=== PATIENT | male | born 1955 | race Caucasian/White ===

== ENCOUNTER → 2018-01-17 | Outpatient (CLI) | payer OTHER, SELFPAY ==
[~2018-01-17] MED LIST: ASPI81CH PO; BENA20 PO; CARV6.25 PO; CLOP75 PO; GABA300 PO; GLIP5 PO; INSULANPEN SQ; LOVA40; Lantus100 UNIT/1 SC; METF500 PO; NEOPOLHCSU RIGHTEAR; Omeprazole20 M1
[2018-01-17 14:06] LABS: Creatinine, Urine Random 74.9 mg/dL (27.00-270.00); Protein, Urine Random 229.5 mg/dL (0.0-11.9)
== END | disposition home or self-care (01) ==
LOC: LAB SRC 09:59
PROVIDERS: Internal Medicine
DX: E11.51 Type 2 diabetes mellitus with diabetic peripheral angiopathy without gangrene (principal); E11.22 Type 2 diabetes mellitus with diabetic chronic kidney disease; N18.2 Chronic kidney disease, stage 2 (mild)
CPT/HCPCS: 82043; 82570; 84156

== ENCOUNTER 2019-08-10 12:01 | Inpatient (IN) | payer OTHER ==
[~2019-08-10] VITALS: Ht 175.3 cm; Wt 92.5 kg
[~2019-08-10 12:01] MED LIST changes: -ASPI81CH PO; -BENA20 PO; -CARV6.25 PO; -GABA300 PO; -INSULANPEN SQ; -LOVA40; -METF500 PO; -Omeprazole20 M1
[2019-08-10 12:54] LABS: BASOPHILS ABSOLUTE AUTO 0.07 K/mm3 (0.00-0.23); BASOPHILS PERCENT AUTO 0 % (0-2); EOSINOPHILS ABSOLUTE AUTO 0.01 K/mm3 (0.00-0.68); EOSINOPHILS PERCENT AUTO 0 % (0-6); Hematocrit 35.3 % (37.0-53.0); Hemoglobin 11.4 g/dL (13.5-17.5); IMMATURE GRAN ABSOLUTE AUTO 0.19 K/mm3 (0.00-0.10); IMMATURE GRAN PERCENT AUTO 1 % (0-1); LYMPHOCYTES ABSOLUTE AUTO 1.59 K/mm3 (0.84-5.20); LYMPHOCYTES PERCENT AUTO 7 % (21-46); MONOCYTES ABSOLUTE AUTO 1.91 K/mm3 (0.16-1.47); MONOCYTES PERCENT AUTO 8 % (4-13); Mean Corpuscular HGB 27.7 pg (26.0-34.0); Mean Corpuscular HGB Conc 32.3 g/dL (31.5-36.5); Mean Corpuscular Volume 86 fL (80-100); NEUTROPHILS ABSOLUTE AUTO 19.06 K/mm3 (1.96-9.15); NEUTROPHILS PERCENT AUTO 84 % (41-73); RDW Coefficient Variation 13.5 % (11.7-14.2); RDW Standard Deviation 42.7 fL (35.1-46.3); Red Blood Cell Count 4.11 M/mm3 (4.30-5.90); White Blood Cell Count 22.83 K/mm3 (4.00-11.30)
[2019-08-10 13:12] LABS: Albumin/Globulin Ratio 0.4 (0.8-1.8); Bilirubin, Total 0.3 mg/dL (0.1-1.0); Bun/Creatinine Ratio 20.3 (12.0-20.0); Calcium, Blood 8.5 mg/dL (8.5-10.1); Creatinine, Blood 1.53 mg/dL (0.60-1.20); Globulin, Blood 5.5 g/dL (2.2-4.0); Potassium, Blood 3.7 mmol/L (3.5-5.5); Total Protein, Blood 7.5 g/dL (6.4-8.2)
[2019-08-10 13:25] LABS: Platelet Count 236 K/mm3 (150-400)
[2019-08-10] MEDS ORDERED: BENA20 PO ×2 (16:05→16:50)
[2019-08-10] MEDS ORDERED: OMEPRAZOLE20 MG PO (16:05)
[2019-08-10] MEDS ORDERED: TOUJEO MAX300 UNIT/1 SC (16:05)
[2019-08-10] MEDS ORDERED: CIPR500 PO (16:07)
[2019-08-10] MEDS ORDERED: Mobic15 MG PO (16:48)
[2019-08-10] MEDS ORDERED: Omeprazole20 M1 PO (16:50)
[2019-08-10] MEDS ORDERED: Flonase 0.05% N16 GM (16:51)
[2019-08-10] MEDS ORDERED: LOVA40 PO (16:51)
[2019-08-10] MEDS ORDERED: TOUJEO SOL300 UNIT/1 SC ×2 (16:52)
[2019-08-10] MEDS ORDERED: Aspir 8181 MG PO (16:53)
[2019-08-10] MEDS ORDERED: CARV6.25 PO (19:03)
[2019-08-10] MEDS ORDERED: FERSU300 PO (19:03)
[2019-08-10] MEDS ORDERED: METF500 PO (19:03)
[2019-08-10] MEDS ORDERED: GABA300 PO ×2 (19:03)
[2019-08-10] MEDS ORDERED: NIGHTTIME SLEEP25 MG PO (19:03)
[2019-08-10] MEDS ORDERED: HYDR1TAB94 PO (19:04)
[2019-08-10] MEDS ORDERED: TURMERIC500 M2 PO (19:04)
[2019-08-10] MEDS ORDERED: ACET325 PO (19:04)
[2019-08-10] MEDS ORDERED: VITAMIN D3400 UNI1 PO (19:04)
[2019-08-10] MEDS ORDERED: FIBER PO (19:06)
[2019-08-10] MEDS ORDERED: ESCI10 PO (19:06)
[2019-08-10 23:10] LABS: Source, Urine Clean Catch
[2019-08-10 23:14] LABS: Bilirubin, Urine Neg (Neg); Blood, Urine 3+ (Neg); Glucose Qualitative, Urine 2+ (Neg); Ketones, Urine Neg (Neg); Leukocyte Esterase, Urine Neg (Neg); Nitrite, Urine Neg (Neg); Protein, Urine 4+ (Neg); Specific Gravity, Urine 1.015 (1.003-1.022); Urobilinogen, Urine NORM (Normal)
[2019-08-10 23:19] LABS: Appearance, Urine Clear (Clear); Color, Urine Yellow (P-Yellow); Red Blood Cells, Urine 0-2 /hpf (0-2)
[2019-08-10 23:20] LABS: Amorphous Light ({null, 0-Heavy}); Bacteria Few /hpf; Granular Casts 0-2 /lpf ({null, 0}); Mucus Light ({null, 0-Heavy}); Squamous Epithelial Cells Not Seen /hpf (Few)
--- NOTE | 2019-08-10 23:58 | NUR ---
2340 WOUND VAC WOUND VAC TUBING AND PUMP CHANGED; NO PICTURES OR DRESSING CHANGED AT THIS TIME, PER NURSING GLASSWARE MAKER. PATIENT STATED THAT HOME HEALTH CHANGED DRESSING THIS AM 08/10/19 AROUND 1000 AND THAT PICTURES WERE TAKEN AT THAT TIME.
--- NOTE | 2019-08-11 01:02 | NUR ---
0030 STATES SOB; UP TO THE SIDE OF BED. APPEARS TACHYPNEIC. PERFUSION APPEARS LOW UPON LISTENING TO LS. EXPLAINED TO PATIENT THAT HE NEEDED TO BREATH IN THROUGH HIS NOSE AND OUT THROUGH HIS MOUTH. DIFFICULTY FOLLOWING DIRECTIONS. SOME COUGHING NOTED. SATURATION AT 86-89%. PLACED ON 2L VIA NC. SATURATION ON NC >95%. STATES FEELING BETTER. WCTM.
[2019-08-11 04:40] LABS: Hematocrit 32.3 % (37.0-53.0); Hemoglobin 10.3 g/dL (13.5-17.5); Mean Corpuscular HGB 27.7 pg (26.0-34.0); Mean Corpuscular HGB Conc 31.9 g/dL (31.5-36.5); Mean Corpuscular Volume 87 fL (80-100); Mean Platelet Volume 12.2 fL (9.1-12.4); Platelet Count 258 K/mm3 (150-400); RDW Coefficient Variation 13.5 % (11.7-14.2); RDW Standard Deviation 42.6 fL (35.1-46.3); Red Blood Cell Count 3.72 M/mm3 (4.30-5.90); White Blood Cell Count 19.64 K/mm3 (4.00-11.30)
[2019-08-11 05:02] LABS: Bun/Creatinine Ratio 20.5 (12.0-20.0); Creatinine, Blood 1.46 mg/dL (0.60-1.20); Potassium, Blood 3.8 mmol/L (3.5-5.5)
--- NOTE | 2019-08-11 06:06 | NUR ---
SHIFT SUMMARY A/O, ABLE TO MAKE NEEDS KNOWN. COOPERATIVE WITH CARE. CALLS AND ANSWERS QUESTIONS APPROPRIATELY. NO C/O PAIN/DISCOMFORT. HOWEVER, FEBRILE THIS AM; MEDICATED PER EMAR. HYPERTENSION TO NOTE WELL. UP WITH 1 ASSIT TO BATHROOM PT HAS WOUND VAC TO R HEEL WHICH IS DRAINING TO SUCTION. APPEARED TO REST MUCH OF SHIFT. IV ABX WELL IV FLUIDS INFUSED WITHOUT COMPLICATIONS. AROUND 0030 PATIENT EXPERIECED SOB; PLACED ON 2L VIA NC, SATURATIONS >90% W/O FURTHER C/O SOB. NO OTHER CHANGES OVERNIGHT. WCTM. BED REMAINS IN LOWEST POSITION. CALL LIGHT AND BELONGINGS WITHIN REACH. REPORT TO ONCOMING RN.
[2019-08-11 10:14] LABS: Vancomycin, Trough 11.8 ug/mL (5.0-10.0)
[2019-08-11 17:23] LABS: Vancomycin, Trough 18.5 ug/mL (5.0-10.0)
--- NOTE | 2019-08-11 20:05 | NUR ---
SHIFT SUMMARY PT AWAKE DURING SHIFT REPORT THIS AM. PLEASANT AND CO-OP. WOUND VAC TO RLE. PER REPORT, PT WENT TO [facility] FOR DEBRIDEMENT AND WOUND VAC PLACED THERE. PT WAS AT HOME WITH H/H WHERE WOUND VAC DRSG'S WERE CHANGED YESTERDAY. H/H INSTRUCTED PT TO COME IN AFTER WOUND APPEARED TO BE GETTING WORSE AND PT NOT FEELING WELL FOR PAST WEEK. PER SHIFT REPORT, H/H HAD TAKEN PICTURES WHEN THEY CHANGED DRSG. DR FRANCO IN TO SEE PT THIS AM. ORDERS TO OBTAIN RECORDS FROM [facility] WITH D/C SUMMARY, CULTURE REPORT, AND BONE BIOPSY REPORT. MULPTIPLE ATTEMPTS MADE TO OBTAIN RECORDS BEFORE THEY WERE FINALLY SENT. PODIATRY CONSULT CALLED BY TO [facility], BUT NO PODIATRY LABORER SHIPYARD FOR SEVERAL DAYS. DR FRANCO UPDATED AND ATTEMPTED TO CALL PODIATRY HIMSELF; UNSUCCESSFUL. DISCUSSED INSULIN COVERAGE WITH DR FRANCO THIS AM PT DID NOT HAVE HIS HOME MEDICATION WITH HIM. NEW ORDERS RECEIVED. PT'S TEMP INCREASED THIS AFTERNOON AGAIN, SEE CHART. ICE BAGS TO NECK AND BOTH AXILLARY AND TYLENOL GIVEN WELL; MOSTLY INEFFECTIVE. RLE INCREASED IN SWELLING AND REDNESS THRU OUT THE DAY. DR FRANCO UPDATED. DR FRANCO PLACED ORDERS FOR CT OF R FOOT AND INCREASE OF ABX. DR BROOKS HERE RIGHT AFTER PT RETURNED TO FROM CT. WOUND VAC REMOVED, PT'S FOOT WAS SWELLING OVER DRSG AND DR BROOKS HAD TO ASSESS WOUND WELL. WOUND CLEANED AND NEW DRSG PLACED BY DR BROOKS. WOUND CARE ORDERS GIVEN WELL ORDERS TO TAKE PICTURES OF WOUND QSHIFT. DR FRANCO IN AFTERWARDS TO CHECK ON PT AND PROVIDE NEW ORDERS. PT DID NOT EAT MUCH FOR DINNER; REPORTED THAT HE HAS NOT FELT LIKE EATING MUCH LATELY. REPORT GIVEN TO ONCOMING RN.
[2019-08-12 04:30] LABS: Hematocrit 31.3 % (37.0-53.0); Hemoglobin 9.9 g/dL (13.5-17.5); Mean Corpuscular HGB 27.7 pg (26.0-34.0); Mean Corpuscular HGB Conc 31.6 g/dL (31.5-36.5); Mean Corpuscular Volume 87 fL (80-100); Mean Platelet Volume 11.9 fL (9.1-12.4); Platelet Count 231 K/mm3 (150-400); RDW Coefficient Variation 13.6 % (11.7-14.2); RDW Standard Deviation 43.7 fL (35.1-46.3); Red Blood Cell Count 3.58 M/mm3 (4.30-5.90); White Blood Cell Count 18.09 K/mm3 (4.00-11.30)
[2019-08-12 04:50] LABS: Anion Gap 6 mmol/L (6-16); Blood Urea Nitrogen 32 mg/dL (8-24); CO2, Blood 26 mmol/L (21-32); Calcium, Blood 7.9 mg/dL (8.5-10.1); Chloride, Blood 99 mmol/L (98-108); Creatinine, Blood 1.68 mg/dL (0.60-1.20); Glomerular Filtration Rate 44 (60-); Glucose, Blood 180 mg/dL (70-99); Potassium, Blood 3.7 mmol/L (3.5-5.5); Sodium, Blood 131 mmol/L (136-145)
[2019-08-12 04:58] LABS: Vancomycin, Trough 24.6 ug/mL (5.0-10.0)
--- NOTE | 2019-08-12 05:09 | NUR ---
SHIFT SUMMARY A/O, ABLE TO MAKE NEEDS KNOWN. COOPERATIVE [facility]. CALLS AND ANSWERS QUESTIONS APPORPRIATELY. NO C/O PAIN/DISCOMFORT. FEBRILE T/O SHIFT; MEDICATED PER EMAR. DRESSING CHANGES COMPLETED WELL PICTURE DOCUMENTION OF WOUND TO R HEEL. EXTREMITY ELEVATED. APPEARED TO REST OFF AND ON T/O SHIFT. MONITORED VS Q3 HOURS. WCTM. BED IN LOWEST POSITION. CALL LIGHT AND BELONGINGS WITHIN REACH. REMAINED NPO SINCE 0000. REPORT TO ONCOMING RN.
--- NOTE | 2019-08-12 15:51 | NUR ---
SHIFT SUMMARY PT AWAKE DURING SHIFT REPORT, RESTING QUIETLY. TYLENOL GIVEN PRIOR TO START OF SHIFT FOR FEVER. COOL CLOTH PLACED TO FOREHEAD. TEMP EVENTUALLY DECREASED SOME. REDNESS AND SWELLING SEEM TO HAVE DECREASED IN RLE WELL. PT REPORTED THAT HE FELT IT WAS MUCH IMPROVED, HOWEVER, THERE WAS STILL REDNESS GOING UP R LEG WITH PITTING EDEMA. WET TO DRY DRSG CHANGES Q6 HRS PER ORDERS. PICTURES TAKEN QSHIFT PER ORDERS WELL. DR FRANCO IN TO SEE PT IN AM. 1155 DR EVANS HERE TO ASSESS PT'S WOUND AND REVIEW CHART. DRSG REMOVED TO RLE. PICTURES TAKEN. DR EVANS ASSESSED AND THEN ASPIRATED INFECTED FLUID OUT OF BOTTOM OF FOOT. PT TOLERATED PROCEDURE WELL; NO FEELING TO RLE D/T DIABETIC NEUROPATHY. ASPIRATED FLUID TAKEN TO LAB FOR CULTURE. PT ABLE TO EAT LUNCH AND DINNER; WILL THEN AGAIN BE NPO FOR POSSIBLE SX IN AM. ONE TIME DOSE OF LANTUS ORDERED TO COVER PT WHILE EATING TODAY. PT HAS BEEN RESTING QUIETLY, NAPPING THIS AFTERNOON. MULTIPLE FAMILY IN RM AT BS TODAY. NO C/O. CALL LT IN REACH.
[2019-08-13 05:01] LABS: Hematocrit 27.7 % (37.0-53.0); Hemoglobin 8.8 g/dL (13.5-17.5); Mean Corpuscular HGB Conc 31.8 g/dL (31.5-36.5); Mean Corpuscular Volume 85 fL (80-100); Mean Platelet Volume 12.4 fL (9.1-12.4); Platelet Count 243 K/mm3 (150-400); RDW Coefficient Variation 13.9 % (11.7-14.2); RDW Standard Deviation 43.7 fL (35.1-46.3); Red Blood Cell Count 3.26 M/mm3 (4.30-5.90); White Blood Cell Count 23.29 K/mm3 (4.00-11.30)
[2019-08-13 05:17] LABS: Bun/Creatinine Ratio 21.7 (12.0-20.0); Calcium, Blood 8.1 mg/dL (8.5-10.1); Creatinine, Blood 1.57 mg/dL (0.60-1.20)
--- NOTE | 2019-08-13 07:30 | NUR ---
SHIFT SUMMARY A/O, ABLE TO MAKE NEEDS KNOWN. COOPERATIVE WITH CARE. CALLS AND ANSWERS QUESTIONS APPROPRIATELY. NO C/O PAIN/DISCOMFORT. HOWEVER, DID MEDICATED FOR FEVER; PER EMAR. TELE PLACED RUNNING NSR /c PVC. NEW 20G IV TO R WRIST. INFUSED ABX AND LR WITHOUT COMPLICATION. HAD SOME NOTED CONFUSION UPON WAKING THIS AM, IS FEELING MUCH BETTER NOW. BLADDER SCANNED THIS AM R/T LOW/NO OUTPUT, YEILDING 547 ML. PATIENT DID VOID p SCAN. CHECK PATIENT BLOOD SUGAR 228. HAS BEEN NPO p 0000 IN PREP FOR SX THIS AM. DRESSING CHANGES COMPLETED /c PICTURE DOCUMENTATION PLACED IN CHART. VSS/AFEBRILE THIS AM. WCTM. BED IN LOWEST POSITION. CALL LIGHT AND BELONGINGS WITHIN REACH. REPORT GIVEN TO DAY SHIFT RN.
--- NOTE | 2019-08-13 12:15 | NUR ---
PT HAS BEEN NPO EXCEPT A FEW MORNING MEDS SINCE MIDNOC. WAS REQUESTING OXYGEN EARLIER THIS MORNING AND WAS TREATED WITH FLONASE AND MUCINEX AND FELT BETTER AFTER. DAY SURGEY HERE TO PICK PT UP. FAMILY AT BEDSIDE PRIOR TO GOING TO SURGERY. PT EXPRESSES WISH TO "GET IT DONE". WILL REPORT TO SURGICAL FLOOR RN WHEN BED ASSIGNED.
--- NOTE | 2019-08-13 12:18 | NUR ---
PT TRANSPORTED TO [facility]. AGREES WITH PLANNED SURGERY. LUNG SOUNDS CLEAR. O2 86% ON RA, PT STATES HE AHS BEEN ON 2L O2 UNTIL THIS AM AND HE TOOK IT OFF. SATS UP TO 96% WHEN PLACED BACK ON 2LPM.
--- NOTE | 2019-08-13 13:01 | NUR ---
PT STATES DENTURES LEFT WITH . NO HEARING AIDES. ALL BELONGINGS LEFT IN ROOM.
--- NOTE | 2019-08-13 13:49 | NUR ---
08/13/19 1349 Serg Ramires PATIENT ON SCHEDULED ANTIBIOTICS
--- NOTE | 2019-08-13 17:01 | NUR ---
PT TO ICU 10 FROM PACU AT 1630 S/P RIGHT BKA. PT ARRIVES AWAKE AND ALERT. RESP EVEN AND UNLABORED, PT STATES HE IS "OKAY". WHEN ASKED ABOUT PAIN, PT STATES HE HAS 10/10 PAIN TO RIGHT LOWER LEG. CALL TO DR CARVALHO TO INQUIRE ABOUT IV PAIN MEDS THERE IS ONLY PO NORCO ORDERED. MS 1-5MG Q 2HR ORDERED.
--- NOTE | 2019-08-13 17:12 | NUR ---
ON ADMIT ASSESSMENT LUNGS SOUNDS WITH CRACKLES TO BASES AND SCATTERED EXT WHEEZE. PT DENIES SOB, STATS 96% ON 4L N/C. DR FRANCO CALLED TO GIVE UPDATE AND TO INQUIRE ABOUT STATUS. STAT BNP ORDERED. PT MAY BE MEDICAL FLOOR STATUS. RIGHT LIMB ELEVATED ON PILLOW, ICE APPLIED. STUMP/THIGH PINK AND WARM W GOOD CAP REFILL. PT MEDICATED FOR NAUSEA AND PAIN.
[2019-08-13 17:55] LABS: Vancomycin, Trough 15.3 ug/mL (5.0-10.0)
[2019-08-13 18:58] LABS: Source, Urine Catheter
[2019-08-13 19:04] LABS: Appearance, Urine Cloudy (Clear); Bilirubin, Urine Neg (Neg); Blood, Urine 3+ (Neg); Color, Urine Yellow (P-Yellow); Glucose Qualitative, Urine 2+ (Neg); Ketones, Urine Neg (Neg); Leukocyte Esterase, Urine Neg (Neg); Nitrite, Urine Neg (Neg); Protein, Urine 3+ (Neg); Specific Gravity, Urine 1.015 (1.003-1.022); Urobilinogen, Urine NORM (Normal)
[2019-08-13 19:11] LABS: Amorphous Mod ({null, 0-Heavy}); Bacteria Few /hpf; Red Blood Cells, Urine 0-2 /hpf (0-2); Squamous Epithelial Cells Not Seen /hpf (Few)
[2019-08-13 19:12] LABS: Hyaline Casts 0-2 /lpf (0-2)
--- NOTE | 2019-08-13 19:52 | NUR ---
PT RESTING, APPEARS COMFORTABLE. INTERMIT. NAUSEA; PT STATES IT HAS IMPROVED. PT HAS DIFFICULTY UNDERSTANDING PAIN SCALE, STATES PAIN IS 10/10; SMILES, ENGAGES IN SMALL TALK, THEN FALLS ASLEEP. RIGHT LIMB ELEVATED W ICE. MINOR PLACED DUE TO RETENTION/INABILITY TO VOID IN BED. 16F MINOR PLACED W/O DIFF; PT RICKIE WELL. IV LASIX GIVEN W GOOD RESULT; PT STATES BREATHING IMPROVED. REPORT GIVEN TO JOSH KAUR.
--- NOTE | 2019-08-13 20:36 | NUR ---
CARE ASSUMED AND TRANSFER CARE ASSUMED BY LUIS KAUR. PT GIVEN MORPHINE FOR PAIN. IN NO ACUTE DISTRESS. SPO2 98% ON 3L NC. LUNG SOUNDS HAVE FAINT WHEEZES IN UPPER MELO BUT AIR EXCHANGE IS AUSCULATED. REPORT CALLED AND GIVEN TO BROOKS ON SURGICAL FLOOR. PT TRANSFERRED AT 2039.
--- NOTE | 2019-08-13 20:50 | NUR ---
2049 TRANSFER: PT ARRIVES TO ROOM 210 AND IS SLIDE SHEET TRANSFERRED TO BED; TOLERATES WELL AND IS POSITIONED FOR COMFORT WITH RLE PROPPED ON PILLOWS AND ICE PACKS APPLIED. MINOR PATENT CLEAR, YELLOW URINE. PT RATES RLE PAIN 8/10 WITH MOVEMENT AND TOLERABLE 4/10 @ REST. CALL LIGHT IN REACH.
--- NOTE | 2019-08-14 00:10 | NUR ---
0010: PT CONTINUES TO RATE RLE PHANTOM PAIN IN TOES AND ANKLE A 10/10 PAIN. PT APPEARS IRRITABLE AND ADMITS TO SEEING AND SPEAKING TO "AN ADULT MOMMA BEAR" MILD NAUSEA. PT REPORTED TO HAVE PREVIOUS VISUAL HALLUCINATIONS AFTER IV MORPHINE. RN TO CALL FOR NEW ORDERS.
[2019-08-14 03:53] LABS: BASOPHILS ABSOLUTE AUTO 0.05 K/mm3 (0.00-0.23); BASOPHILS PERCENT AUTO 0 % (0-2); EOSINOPHILS ABSOLUTE AUTO 0.22 K/mm3 (0.00-0.68); EOSINOPHILS PERCENT AUTO 2 % (0-6); Hematocrit 29.4 % (37.0-53.0); IMMATURE GRAN ABSOLUTE AUTO 0.15 K/mm3 (0.00-0.10); IMMATURE GRAN PERCENT AUTO 1 % (0-1); LYMPHOCYTES PERCENT AUTO 11 % (21-46); MONOCYTES ABSOLUTE AUTO 1.28 K/mm3 (0.16-1.47); MONOCYTES PERCENT AUTO 9 % (4-13); Mean Corpuscular HGB 27.4 pg (26.0-34.0); Mean Corpuscular HGB Conc 30.6 g/dL (31.5-36.5); NEUTROPHILS ABSOLUTE AUTO 10.46 K/mm3 (1.96-9.15); NEUTROPHILS PERCENT AUTO 77 % (41-73); Platelet Count 259 K/mm3 (150-400); RDW Coefficient Variation 14.3 % (11.7-14.2); RDW Standard Deviation 46.8 fL (35.1-46.3); Red Blood Cell Count 3.28 M/mm3 (4.30-5.90); White Blood Cell Count 13.66 K/mm3 (4.00-11.30)
[2019-08-14 03:54] LABS: Mean Corpuscular Volume 90 fL (80-100)
[2019-08-14 04:15] LABS: Bun/Creatinine Ratio 22.8 (12.0-20.0); Calcium, Blood 8.1 mg/dL (8.5-10.1); Creatinine, Blood 1.58 mg/dL (0.60-1.20); Potassium, Blood 3.8 mmol/L (3.5-5.5)
--- NOTE | 2019-08-14 07:56 | NUR ---
SUMMARY: ICU TRANSFER S/P RIGHT BKA BY DR. CARVALHO. VSS, AFEBRILE, MAINTAINS SPO2 >92% ON 3L O2 VIA NC. MILD EXP WHEEZES BUT MOVES AIR WELL T/O. TOLERATING CLEARS, MINOR PATENT CLEAR, YELLOW URINE. PT RLE PROPPED ON PILLOWS AND ROTATED ICE PACKS. PT PAIN CONTROLLED WITH 2 TABS NORCO, 10MG ROXICODONE. PT APPEARED AGITATED AND HAVING VISUAL HALLUCINATIONS ON IV MORPHINE THAT WAS DC'D AND PT TOLERATED IV FENTANYL MUCH BETTER GETTING SEVERAL HOURS SLEEP. ANTICIPATE PT/OT EVALUATION LATER THIS DAY.
--- NOTE | 2019-08-14 20:07 | NUR ---
SUMMARY- PT A/O, STARTED WORKING WITH PT/OT TODAY. WAS ABLE TO STAND WITH WALKER AT SIDE OF BED. LEG ELEVATED WHILE IN BED WITH ICE TO INC SITE. SG DRESSING INTACT NO SHADOWING, CONPRESSION SLEEVE IN PLACE. PT HAS PHANTOM LIMB PAIN THAT HE STATES IS 10/10 MOST OF THE TIME. STARTED OXYCODONE, AND PT NAPPED FOR 3 HOURS THIS AFTERNOON, BUT AROUSABLE. MEDICATED Q6 WITH OXY SEEMS TO BE EFFECTIVE FOR PAIN. DR IRVING AT [facility] TO SEE PT THIS PM. STATES A FEW MORE DAYS OF IV ABS, THAN PLAN FOR [facility]. DR SUTHERLAND CONSULT, TOLD NOC RN TO HAVE DAY RN TUES FOLLOW THROUGH TO SEE THIS CONSULT HAPPENS. BLOOD SUGARS AC/HS AROUND 200, COVERED WITH SSI PER ORDER.
[2019-08-15 04:31] LABS: Hematocrit 28.5 % (37.0-53.0); Hemoglobin 8.8 g/dL (13.5-17.5); Mean Corpuscular HGB 26.9 pg (26.0-34.0); Mean Corpuscular HGB Conc 30.9 g/dL (31.5-36.5); Mean Platelet Volume 12.3 fL (9.1-12.4); Platelet Count 307 K/mm3 (150-400); RDW Coefficient Variation 14.5 % (11.7-14.2); RDW Standard Deviation 46.4 fL (35.1-46.3); Red Blood Cell Count 3.27 M/mm3 (4.30-5.90); White Blood Cell Count 10.96 K/mm3 (4.00-11.30)
[2019-08-15 04:32] LABS: Mean Corpuscular Volume 87 fL (80-100)
[2019-08-15 04:55] LABS: Bun/Creatinine Ratio 22.2 (12.0-20.0); Calcium, Blood 8.2 mg/dL (8.5-10.1); Creatinine, Blood 1.85 mg/dL (0.60-1.20)
--- NOTE | 2019-08-15 08:01 | NUR ---
SHIFT SUMMARY: PT S/P RIGHT BKA. STUMP SOCK IN PLACE AND ELEVATED ON PILLOWS WITH ICE. PAIN BEING MANAGED WITH 2 OXY PER EMAR. TELE SHOWING NSR. MINOR PATENT AND DRAINING CLEAR YELLOW URINE. PT C/O CONGESTION. ENCOURAGED TO USE IS. FLUIDS TKO WITH ABX INFUSING PER EMAR. PLAN FOR [place] AFTER DISCHARGE.
--- NOTE | 2019-08-15 11:31 | NUR ---
DR. FLEMING IN TO SEE PT AT 0284.
--- NOTE | 2019-08-15 11:31 | NUR ---
WORKING WITH PT AT THIS TIME
--- NOTE | 2019-08-15 11:48 | NUR ---
PATIENT UP INTO WHEELCHAIR WITH PT.
--- NOTE | 2019-08-15 13:10 | NUR ---
WORKING WITH OT, UP IN WHEELCHAIR
--- NOTE | 2019-08-15 14:48 | NUR ---
NOTIFIED PT C/O OF FEELING UNABLE TO CLEAR THROAT. LUNGS SOUND WHEEZY. DISCUSSED WITH PLAN TO ORDER BREATHING TX.
--- NOTE | 2019-08-15 16:43 | NUR ---
DR. FLEMING IN TO SEE PT AT THIS TIME.
--- NOTE | 2019-08-15 19:14 | NUR ---
SHIFT SUMMARY S/P RIGHT BKA, STUMP SOCK IN PLACE AND ELEVATED ON PILLOWS. NO DRAINAGE NOTED, DRESSING C/D/I. PAIN MANAGED PER EMAR WITH ICE AND REPOSITIOING. WORKED WITH PT/OT TODAY, TOLERATED IT WELL. UP IN WHEELCHAIR. MINOR CATH PATENT AND DRAINING CLEAR, YELLOW URINE. A&0, VSS, SPO2 ABOVE 90% ON 3L. FAMILY AT BEDSIDE T/O SHIFT. PLEASANT AND COOPERATIVE. CALL LIGHT WITHIN REACH.
[2019-08-16 04:39] LABS: Hematocrit 28.2 % (37.0-53.0); Hemoglobin 8.9 g/dL (13.5-17.5); Mean Corpuscular HGB 27.3 pg (26.0-34.0); Mean Corpuscular HGB Conc 31.6 g/dL (31.5-36.5); Mean Corpuscular Volume 87 fL (80-100); Mean Platelet Volume 11.9 fL (9.1-12.4); Platelet Count 311 K/mm3 (150-400); RDW Coefficient Variation 14.1 % (11.7-14.2); RDW Standard Deviation 44.9 fL (35.1-46.3); Red Blood Cell Count 3.26 M/mm3 (4.30-5.90); White Blood Cell Count 8.88 K/mm3 (4.00-11.30)
[2019-08-16 04:59] LABS: Bun/Creatinine Ratio 21.9 (12.0-20.0); Creatinine, Blood 1.55 mg/dL (0.60-1.20); Potassium, Blood 3.7 mmol/L (3.5-5.5)
--- NOTE | 2019-08-16 07:55 | NUR ---
SUMMARY PT SLEPT QUIETLY LAST NIGHT. ENC PULM TOILET AND USING NEBULIZERS FOR WHEEZING.CONT WITH O2 VIA N/C. PT ABLE TO ASSIST FOR REPOSITIONING.
--- NOTE | 2019-08-16 13:25 | NUR ---
OT IN TO WORK WITH PATIENT THIS AFTERNOON.
--- NOTE | 2019-08-16 19:02 | NUR ---
SHIFT SUMMARY PT A&O WITH VSS T/O SHIFT. STUMP SOCK IN PLACE C/D/I, NO DRAINAGE NOTED TODAY. STUMP ELEVATED ON PILLOWS WITH ICE THERAPY. PT WORKED WITH THERAPY TODAY. UP IN WHEELCHAIR AND STANDING AT BEDSIDE TODAY WITH 2 PERSON ASSIST. PAIN MANAGED WITH ICE, REPOSITION, AND PER EMAR. STRAIGHT CATH PERFORMED TODAY PER BS PROTOCOL WITH 599ML. IV REMOVED AND UNABLE TO SUCCESSFULLY REESTABLISH. DOCTOR NOTIFIED; ORDERES OBTAINED TO LEAVE OUT.
[2019-08-17 05:43] LABS: Anion Gap 4 mmol/L (6-16); Blood Urea Nitrogen 30 mg/dL (8-24); Bun/Creatinine Ratio 23.8 (12.0-20.0); CO2, Blood 31 mmol/L (21-32); Calcium, Blood 8.4 mg/dL (8.5-10.1); Chloride, Blood 105 mmol/L (98-108); Creatinine, Blood 1.26 mg/dL (0.60-1.20); Glomerular Filtration Rate >60 (60-); Glucose, Blood 205 mg/dL (70-99); Magnesium, Blood 1.6 mg/dL (1.6-2.4); Potassium, Blood 4.1 mmol/L (3.5-5.5); Sodium, Blood 140 mmol/L (136-145)
--- NOTE | 2019-08-17 07:14 | NUR ---
SUMMARY PT ASKED FOR PAIN MEDS THIS AM, BUT WHEN I WAS AT BEDSIDE TO GIVE, PT GROGGY SLOW TO WAKE AND DRIFTING BACK TO SLEEP WHILE I WAS SPEAKING TO HIM. I DISCUSSED WITH HIM THE IMPORTANCE OF BEING ABLE TO STAY AWAKE BEFORE GIVING FURTHER PAIN MEDS. PT BACK TO SLEEP WITH NO FURTHER REQUEST YET.
--- NOTE | 2019-08-17 08:12 | NUR ---
pt in sr with occ pvc per tele dina pt had est 10-15 min of afib per tele pt sleeping deeply will notify hosp
--- NOTE | 2019-08-17 12:56 | NUR ---
PT IN WC ESCORT TO CAIN REPORT TO BE CALLED
== END 2019-08-17 12:56 | DRG 853 ==
LOC: ER 12:01 → MEDS 16:24 → SURS 16:24 → MEDS 18:26 → SURS 08-13 14:06 → ICUW 08-13 16:36 → SURS 08-13 20:47
PROVIDERS: Hospitalist; Orthopaedic Surgery; Physician Assistant; ADMIT Internal Medicine
PROC: 0Y6H0Z3 Detachment at Right Lower Leg, Low, Open Approach (ICD-10-PCS; principal; 2019-08-13 12:30)
DX: A41.9 Sepsis, unspecified organism (principal); J96.01 Acute respiratory failure with hypoxia; I50.31 Acute diastolic (congestive) heart failure; M86.671 Other chronic osteomyelitis, right ankle and foot; E87.1 Hypo-osmolality and hyponatremia; N17.9 Acute kidney failure, unspecified; M86.171 Other acute osteomyelitis, right ankle and foot; L03.115 Cellulitis of right lower limb; E11.69 Type 2 diabetes mellitus with other specified complication; E11.51 Type 2 diabetes mellitus with diabetic peripheral angiopathy without gangrene; D64.9 Anemia, unspecified; R65.20 Severe sepsis without septic shock; I11.0 Hypertensive heart disease with heart failure; E11.65 Type 2 diabetes mellitus with hyperglycemia; Z79.4 Long term (current) use of insulin; Z87.891 Personal history of nicotine dependence
CPT/HCPCS: 36415; 51702; 73620; 73700; 80048; 80053; 80202; 81001; 82947; 83605; 83735; 83880; 84145; 85025; 85027; 86850; 86900; 86901; 87040; 87070; 87075; 87076; 87077; 87185; 87186; 87205; 88307; 93005; 93010; 93306; 94640; 94760; 96365; 96375; 97110; 97163; 97166; 97530; 97535; 99284-25; A9270; A9270-GY; J0330; J0692; J1650; J1940; J2250; J2270; J2370; J2405; J2543; J2704; J2710; J3010; J3370; J7030; J7050; J7120

== ENCOUNTER 2019-10-23 07:30 | Day surgery (SDC) | payer OTHER ==
[~2019-10-23 07:30] MED LIST changes: +ACET325 PO; +Aspir 8181 MG PO; +BENA20 PO; +CARV6.25 PO; +CIPR500 PO; +ESCI10 PO; +FERSU300 PO; +FIBER PO; +Flonase 0.05% N16 GM; +GABA300 PO; +HYDR1TAB94 PO; +LOVA40 PO; +METF500 PO; +Mobic15 MG PO; +NIGHTTIME SLEEP25 MG PO; +OMEPRAZOLE20 MG PO; +Omeprazole20 M1 PO; +TOUJEO MAX300 UNIT/1 SC; +TOUJEO SOL300 UNIT/1 SC; +TURMERIC500 M2 PO; +VITAMIN D3400 UNI1 PO
== END 2019-10-23 22:58 | disposition home or self-care (01) ==
LOC: WOUND 07:30
DX: E11.622 Type 2 diabetes mellitus with other skin ulcer (principal); L97.821 Non-pressure chronic ulcer of other part of left lower leg limited to breakdown of skin; E11.22 Type 2 diabetes mellitus with diabetic chronic kidney disease; E11.51 Type 2 diabetes mellitus with diabetic peripheral angiopathy without gangrene; E11.59 Type 2 diabetes mellitus with other circulatory complications; N18.9 Chronic kidney disease, unspecified; E78.00 Pure hypercholesterolemia, unspecified; Z87.891 Personal history of nicotine dependence; Z79.899 Other long term (current) drug therapy; Z79.82 Long term (current) use of aspirin; Z79.4 Long term (current) use of insulin
CPT/HCPCS: G0463

== ENCOUNTER 2019-10-30 08:56 | Day surgery (SDC) | payer OTHER | END 2019-10-30 22:56 | disposition home or self-care (01) | LOC: WOUND 08:56 | DX: E11.622 Type 2 diabetes mellitus with other skin ulcer (principal); L97.821 Non-pressure chronic ulcer of other part of left lower leg limited to breakdown of skin; E11.22 Type 2 diabetes mellitus with diabetic chronic kidney disease; E11.51 Type 2 diabetes mellitus with diabetic peripheral angiopathy without gangrene; E11.59 Type 2 diabetes mellitus with other circulatory complications; N18.9 Chronic kidney disease, unspecified; E78.00 Pure hypercholesterolemia, unspecified; Z79.4 Long term (current) use of insulin; Z79.82 Long term (current) use of aspirin; Z79.899 Other long term (current) drug therapy | CPT/HCPCS: G0463 ==

== ENCOUNTER 2019-11-13 14:26 | Day surgery (SDC) | payer OTHER | END 2019-11-13 14:27 | disposition home or self-care (01) | LOC: WOUND 14:26 | DX: E11.622 Type 2 diabetes mellitus with other skin ulcer (principal); E11.51 Type 2 diabetes mellitus with diabetic peripheral angiopathy without gangrene; E11.59 Type 2 diabetes mellitus with other circulatory complications; E11.22 Type 2 diabetes mellitus with diabetic chronic kidney disease; N18.9 Chronic kidney disease, unspecified; L97.821 Non-pressure chronic ulcer of other part of left lower leg limited to breakdown of skin; E78.00 Pure hypercholesterolemia, unspecified; Z79.4 Long term (current) use of insulin; Z79.899 Other long term (current) drug therapy | CPT/HCPCS: G0463 ==

== ENCOUNTER 2020-02-19 09:24 | Day surgery (SDC) | payer OTHER ==
[~2020-02-19] VITALS: Ht 170.2 cm; Wt 93.6 kg
[~2020-02-19 09:24] MED LIST changes: +FURO40 PO; +ONDA4 PO
--- NOTE | 2020-02-19 10:12 | NUR ---
PT REPORTS THAT HIS IS THE ONE WHO IS IN CHARGE OF MEDICATIONS FOR HIM DAILY. IS NOT PRESENT AT THIS TIME. CURRENTLY UNABLE TO VERIFY MEDICATIONS. PT STATES THAT THERE HAS BEEN NO CHANGES TO MEDICATIONS SINCE HIS LAST VISIT WITH DR. OLIVO, WHICH WAS 12/10/2019.
--- NOTE | 2020-02-19 16:10 | NUR ---
PT TO RECOVERY ROOM POST PROCEDURE. PT IS AWAKE, ORIENTED, ANSWERING QUESTIONS APPROPRIATELY. PT DENIES PAIN OR DISCOMFORT. MONITOR SR 80-90'S, B/P 195/96, AFEBRILE, SPO2 93% RA. R GROIN SITE NO SWELLING/HEMATOMA, 1+ PULSES X 2, TEGADERM DRSG INTACT.
[2020-02-19] MEDS ORDERED: CLOP75 PO (16:33)
--- NOTE | 2020-02-19 16:40 | NUR ---
DR OLIVO NOTIFIED OF PT'S ELEVATED B/P, ORDERS RECEIVED; ADMINISTERED 10 MG IV HYDRALAZINE.
--- NOTE | 2020-02-19 17:05 | NUR ---
PT'S B/P IMPROVED AFTER HYDRALAZINE. PT TAKING LUNCH WITHOUT ISSUES.
--- NOTE | 2020-02-19 18:45 | NUR ---
PT SAT UP ON THE EDGE OF BED, VOIDED QS; SITE UNCHANGED WITH ACTIVITY. PT DRESSED WITH ASSISTANCE, IV REMOVED-CANNULA INTACT.
--- NOTE | 2020-02-19 18:55 | NUR ---
PT AND RECEIVED DISCHARGE INSTRUCTIONS, SITE MANAGEMENT, MED LIST AND AFTER CARE INSTRUCTIONS; VERBALIZED GOOD UNDERSTANDING. PT LEFT FACILITY VIA W/C WITH , CONDITION STABLE.
== END 2020-02-19 18:53 | disposition home or self-care (01) ==
LOC: MHTC 09:24
DX: I70.212 Atherosclerosis of native arteries of extremities with intermittent claudication, left leg (principal); Z88.8 Allergy status to other drugs, medicaments and biological substances
CPT/HCPCS: 37221; 37227; 37228; 37232; 75625; 75716; 75774; 82947; 85347; 99152; 99153; C1724; C1725; C1760; C1769; C1874; C1876; C1884; C1887; C1894; C2623; J0360; J1644; J2250; J3010; J7030; Q9967

== ENCOUNTER 2020-03-03 13:19 | Day surgery (SDC) | payer OTHER ==
[~2020-03-03 13:19] MED LIST changes: -Aspir 8181 MG PO; -CARV6.25 PO; -FERSU300 PO; -FURO40 PO; -Flonase 0.05% N16 GM; -GABA300 PO; -LOVA40 PO; -METF500 PO; -Omeprazole20 M1 PO; -TOUJEO SOL300 UNIT/1 SC; -VITAMIN D3400 UNI1 PO
== END 2020-03-03 22:49 | disposition home or self-care (01) ==
LOC: WOUND 13:19
DX: E11.52 Type 2 diabetes mellitus with diabetic peripheral angiopathy with gangrene (principal); I96 Gangrene, not elsewhere classified; E11.59 Type 2 diabetes mellitus with other circulatory complications; E11.22 Type 2 diabetes mellitus with diabetic chronic kidney disease; E78.00 Pure hypercholesterolemia, unspecified; Z79.4 Long term (current) use of insulin
CPT/HCPCS: G0463

== ENCOUNTER 2020-03-10 00:11 | Day surgery (SDC) | payer OTHER ==
[2020-03-11] MEDS ORDERED: GABA300 PO ×2 (13:58→13:59)
[2020-03-11] MEDS ORDERED: Flonase 0.05% N16 GM (13:58)
[2020-03-11] MEDS ORDERED: CARV6.25 PO (13:58)
[2020-03-11] MEDS ORDERED: TOUJEO SOL300 UNIT/1 SC ×2 (13:59→14:00)
[2020-03-11] MEDS ORDERED: FURO20 PO (14:00)
[2020-03-11] MEDS ORDERED: CLOP75 PO (14:00)
[2020-03-11] MEDS ORDERED: Omeprazole20 M1 PO (14:01)
[2020-03-11] MEDS ORDERED: METF500 PO (14:01)
[2020-03-11] MEDS ORDERED: ESCI10 PO (14:02)
[2020-03-11] MEDS ORDERED: LOVA40 PO (14:02)
[2020-03-11] MEDS ORDERED: Aspir 8181 MG PO (14:04)
[2020-03-11] MEDS ORDERED: FERSU300 PO (14:04)
[2020-03-11] MEDS ORDERED: ERGO400 PO (14:05)
== END 2020-03-10 22:38 | disposition home or self-care (01) ==
LOC: WOUND 00:11
DX: E11.621 Type 2 diabetes mellitus with foot ulcer (principal); L97.529 Non-pressure chronic ulcer of other part of left foot with unspecified severity; E11.59 Type 2 diabetes mellitus with other circulatory complications; Z88.1 Allergy status to other antibiotic agents
CPT/HCPCS: G0463

== ENCOUNTER 2020-03-11 12:20 | Inpatient (IN) | payer OTHER ==
[~2020-03-11] VITALS: Ht 175.3 cm; Wt 98.5 kg
[2020-03-11 13:53] LABS: BASOPHILS ABSOLUTE AUTO 0.05 K/mm3 (0.00-0.23); BASOPHILS PERCENT AUTO 0 % (0-2); EOSINOPHILS PERCENT AUTO 1 % (0-6); Hematocrit 32.2 % (37.0-53.0); Hemoglobin 10.5 g/dL (13.5-17.5); IMMATURE GRAN ABSOLUTE AUTO 0.12 K/mm3 (0.00-0.10); IMMATURE GRAN PERCENT AUTO 1 % (0-1); LYMPHOCYTES ABSOLUTE AUTO 2.22 K/mm3 (0.84-5.20); LYMPHOCYTES PERCENT AUTO 11 % (21-46); MONOCYTES ABSOLUTE AUTO 1.53 K/mm3 (0.16-1.47); MONOCYTES PERCENT AUTO 8 % (4-13); Mean Corpuscular HGB Conc 32.6 g/dL (31.5-36.5); Mean Corpuscular Volume 95 fL (80-100); Mean Platelet Volume 12.2 fL (9.1-12.4); NEUTROPHILS ABSOLUTE AUTO 15.48 K/mm3 (1.96-9.15); NEUTROPHILS PERCENT AUTO 79 % (41-73); Platelet Count 212 K/mm3 (150-400); RDW Coefficient Variation 12.3 % (11.7-14.2); RDW Standard Deviation 42.2 fL (35.1-46.3); Red Blood Cell Count 3.39 M/mm3 (4.30-5.90)
[2020-03-11] MEDS ORDERED: GABA300 PO ×2 (13:58→13:59)
[2020-03-11] MEDS ORDERED: Flonase 0.05% N16 GM (13:58)
[2020-03-11] MEDS ORDERED: CARV6.25 PO (13:58)
[2020-03-11] MEDS ORDERED: TOUJEO SOL300 UNIT/1 SC ×2 (13:59→14:00)
[2020-03-11] MEDS ORDERED: FURO20 PO (14:00)
[2020-03-11] MEDS ORDERED: CLOP75 PO (14:00)
[2020-03-11] MEDS ORDERED: METF500 PO (14:01)
[2020-03-11] MEDS ORDERED: Omeprazole20 M1 PO (14:01)
[2020-03-11] MEDS ORDERED: ESCI10 PO (14:02)
[2020-03-11] MEDS ORDERED: LOVA40 PO (14:02)
[2020-03-11] MEDS ORDERED: FERSU300 PO (14:04)
[2020-03-11] MEDS ORDERED: Aspir 8181 MG PO (14:04)
[2020-03-11] MEDS ORDERED: ERGO400 PO (14:05)
[2020-03-11 14:13] LABS: Albumin, Blood 2.9 g/dL (3.4-5.0); Albumin/Globulin Ratio 0.6 (0.8-1.8); Bilirubin, Total 0.4 mg/dL (0.1-1.0); Bun/Creatinine Ratio 20.4 (12.0-20.0); Calcium, Blood 8.9 mg/dL (8.5-10.1); Creatinine, Blood 1.47 mg/dL (0.60-1.20); Globulin, Blood 4.6 g/dL (2.2-4.0); Potassium, Blood 5.1 mmol/L (3.5-5.5); Total Protein, Blood 7.5 g/dL (6.4-8.2)
[2020-03-11 15:34] LABS: International Normalized Ratio 0.94; Prothrombin Time Results 10.1 Sec (9.7-11.5)
--- NOTE | 2020-03-11 17:35 | NUR ---
PT ARRIVED TO THE UNIT VIA GURNEY. PT WAS FAMILIRARIZED TO THE ROOM. PTS CALLED TO OBTAIN MEDICATION LIST, DID NOT LEAVE VOICE MAIL. PT REQUESTED FOOD, PROVIDED SANDWICH AND WATER. HE HAS NO OTHER REQUESTS AT THIS TIME.
[2020-03-12 06:08] LABS: BASOPHILS ABSOLUTE AUTO 0.06 K/mm3 (0.00-0.23); BASOPHILS PERCENT AUTO 0 % (0-2); EOSINOPHILS PERCENT AUTO 1 % (0-6); Hematocrit 27.7 % (37.0-53.0); Hemoglobin 9.1 g/dL (13.5-17.5); IMMATURE GRAN PERCENT AUTO 1 % (0-1); LYMPHOCYTES ABSOLUTE AUTO 2.71 K/mm3 (0.84-5.20); LYMPHOCYTES PERCENT AUTO 19 % (21-46); MONOCYTES ABSOLUTE AUTO 1.24 K/mm3 (0.16-1.47); MONOCYTES PERCENT AUTO 9 % (4-13); Mean Corpuscular HGB 31.6 pg (26.0-34.0); Mean Corpuscular HGB Conc 32.9 g/dL (31.5-36.5); Mean Corpuscular Volume 96 fL (80-100); Mean Platelet Volume 12.1 fL (9.1-12.4); NEUTROPHILS ABSOLUTE AUTO 9.63 K/mm3 (1.96-9.15); NEUTROPHILS PERCENT AUTO 69 % (41-73); Platelet Count 183 K/mm3 (150-400); RDW Coefficient Variation 12.3 % (11.7-14.2); RDW Standard Deviation 43.8 fL (35.1-46.3); Red Blood Cell Count 2.88 M/mm3 (4.30-5.90); White Blood Cell Count 13.94 K/mm3 (4.00-11.30)
--- NOTE | 2020-03-12 06:15 | NUR ---
SHIFT SUMMARY PT HAS RESTED FOR MOST OF THE NIGHT. MEDICATED PRN FOR PAIN IN HIS LEFT FIFTH TOE. PT TOE IS GANGRENOUS, HE REPORTS PAIN THAT SHOOTS UP HIS LEG. PICTURES TAKEN OF TOE. PLAN IS FOR REVASCULARIZATION TODAY BY DR. OLIVO TO SAVE REMAINING TOES AND PODIATRY CONSULT FOR POSSIBLE AMPUTATION OF HIS FIFTH TOE. DR. OLIVO VISITED WITH PT AROUND 2100, AND WROTE ORDERS FOR NPO AFTER BREAKFAST, PT IS AWARE. PT HAS RESTED IN BED AND HAS USED HIS URINAL INDEPENDENTLY AT THE BEDSIDE. HEPARIN GTT INFUSING ORDERED. IVF INFUSING INTO SECOND IV. THERE ARE NO ACUTE CHANGES TO REPORT. BED IN LOWEST POSITION, CALL LIGHT WITHIN REACH. WILL CONTINUE TO MONITOR AND REPORT TO ONCOMING RN.
[2020-03-12 06:27] LABS: Albumin, Blood 2.3 g/dL (3.4-5.0); Anion Gap 6 mmol/L (6-16); Blood Urea Nitrogen 33 mg/dL (8-24); Bun/Creatinine Ratio 20.4 (12.0-20.0); CO2, Blood 26 mmol/L (21-32); Chloride, Blood 106 mmol/L (98-108); Creatinine, Blood 1.62 mg/dL (0.60-1.20); Glomerular Filtration Rate 45 (60-); Glucose, Blood 137 mg/dL (70-99); Phosphorus, Blood 4.5 mg/dL (2.5-4.9); Potassium, Blood 4.2 mmol/L (3.5-5.5); Sodium, Blood 138 mmol/L (136-145); Troponin I 0.033 ng/mL (0.000-0.040)
[2020-03-12 06:41] LABS: International Normalized Ratio 0.98; Prothrombin Time Results 10.5 Sec (9.7-11.5)
--- NOTE | 2020-03-12 16:44 | NUR ---
Initial spiritual care note: Mr. Cook was irritable initially, but warmed after theraputic conversation. He beleives he is getting better and expects to be able to return home with his in a day or two. No concerns presented. He allowed prayer. I will remain available.
--- NOTE | 2020-03-12 18:06 | NUR ---
down for procedure, called report to [facility] nurse, carried belongings including wallet, leg, and phone to [facility] placed meal in kitchen (ice cream in freezer)
--- NOTE | 2020-03-12 20:00 | NUR ---
ARRIVED FROM PROCEDURE AT APPROX 1930 PATIENT ARRIVED TO PCU 11 FROM [facility]. REPORT RECEIVED FROM VINCENT HOGAN. PATIENT ALERT AND PLEASENTLY TALKING WITH STAFF. VITAL SIGNS CHARTED. SITE TO RIGHT GROIN HAS A SLIGHT AMOUNT OF BLEEDING BUT IS SOFT TO TOUCH. PATIENT PROVIEDED WITH POST PROCEDURE EDUCATION AND MOVEMENT RESTRICTIONS, PATIENT VERBALIZED UNDERSTANDING.
--- NOTE | 2020-03-12 23:05 | NUR ---
UPDATE PATIENT HEAD ELEVATED TO 20 DEGREES AT THIS TIME. PATIENT APPEARS TO BE SLEEPING WELL. SITE TO RIGHT GROIN APPEARS UNCHANGED FROM INITAL ASSSESSMENT. CONDOM CATH PLACED FOR EASE OF VOIDING. HEPERAIN GTT STARTED PER PHARMACY INSTRUCTION. PULSE TO LEFT FOOT CONTINUES TO BE FAINT BUT PALPABLE. VITAL SIGNS CHARTED. WILL CONTINUE TO MONITOR PATIENT.
--- NOTE | 2020-03-13 06:55 | NUR ---
SHIFT SUMMARY PATIENT PLEASENT AND COOPERATIVE THROUGHOUT THE REST OF THE NIGHT. PATIENT CHEERFUL AND COOPERATIVE WITH STAFF. PATIENT APPEARED TO NAP ON AND OFF THROUGHOUT THE REST OF THE NIGHT. HEPARIN GTT RUNNING PER ORDERS. REPORT GIVEN TO ONCOMING RN.
--- NOTE | 2020-03-13 07:34 | NUR ---
ASSUMED CARE: PT SITTING UPRIGHT IN WHEELCHAIR AT THIS TIME. NECROTIC TOE NOTED TO LEFT FOOT. CALL TO DR SNOW TO DETERMINE WHEN HEPARIN GTT SHOULD BE TURNED OFF. STATES SURGERY WILL BE AROUND 1600 SO HEPARIN OFF AT 1400 AND RESUME AFTER SURGERY.
--- NOTE | 2020-03-13 13:13 | NUR ---
Spiritual care visit conducted. Patient is lying in bed and alert. Patient immediately tells me his medical issues and history. Patient tells me about his family and his jerrod. Patient admits to being discouraged and feels as if the last couple of years have been a struggle with difficulty after difficulty. I listen empathically, normalize patient's experience, reinforce helpful attitudes and practices, and provide companionship, pastoral industrial relations counselor and prayer. Patient responds well and shows signs of encouragement and an elevated mood. I will continue to remain available to patient and family.
--- NOTE | 2020-03-13 14:40 | NUR ---
PT TAKEN TO SURGERY BY DAY SURGERY NURSE
--- NOTE | 2020-03-13 15:32 | NUR ---
Indy Paws warming gown applied. History, Chart, Medications and Allergies reviewed before start of procedure.Lungs clear T/O to Auscultation. Patient confirms NPO status and agrees with scheduled surgery.HEPARIN TURNEDD OFF AT [address] GWENDOLYN MARTIN. REPORT FROM MIGUEL HOUSTON RN, EKG DONE.
--- NOTE | 2020-03-13 15:34 | NUR ---
PT RING AND WATCH PLACED IN TOP DRAWER WITH ALBERTO./
--- NOTE | 2020-03-13 15:48 | NUR ---
03/13/20 1548 Carito George PT ON SCHEDULED ANTIBIOTICS
--- NOTE | 2020-03-13 16:54 | NUR ---
REPORT GIVEN TO VINCENT ALICIA. PT'S BELONGINGS TRANSFERRED TO ROOM 230. RN STATES DAY SURGERY GAVE REPORT OF SURGERY. RN DENIES NEEDS OR CONCERNS.
--- NOTE | 2020-03-13 18:10 | NUR ---
SUMMARY PT ARRIVED TO UNIT FROM PACU. ALERT AND ORIENTED TO SELF AND SITUATION BUT MAKES ODD COMMENTS FROM TIME TO TIME. DRESSING TO LLE CDI. DENIES PAIN. TOES PWD. DENIES N/V OR SOB. HYPERTENSIVE, ADMINISTERED COREG PER ORDERS. CONTACTED DR SNOW AND OBTAINED ORDERS TO RESTART HEPARIN PER PHARMACY ORDERS. RESTARTED PER PHARMACY AT PREVIOUS RATE. NEXT LAB DUE AT 0100. CALL LIGHT IN REACH.
--- NOTE | 2020-03-14 06:17 | NUR ---
POD 1 S/P LEFT PINKY TOE AMPUTATION. PT VSS, SATS >90% ON RA, PT USING 2LO2 NC PRN T/O NIGHT R/T "STUFFED UP NOSE" DRESSING CDI, LLE ELEVATED IN BED T/O NIGHT. PAIN MGD W/PO PAIN MEDS W/REP RELIEF. PT UP OOB W/WC+SBA, RICKIE WELL. HEPARIN GTT CONT, RATE ADJUSTED X1 PER ORDERS. PT USING CALL LIGHT FOR ASSISTNACE, BED ALARM ON FOR SAFETY. WILL CONT TO MONITOR UNTIL REP GIVEN TO ONCOMING RN.
[2020-03-14 08:08] LABS: Mean Platelet Volume 12.3 fL (9.1-12.4); Platelet Count 174 K/mm3 (150-400)
--- NOTE | 2020-03-14 09:05 | NUR ---
therapy in to work w/pt
--- NOTE | 2020-03-14 12:50 | NUR ---
Spiritual care visit conducted. Patient tells me that surgery went well but then immediately tells me about the dreams he had and about his hallucinations. He also explains how strong he is and that he is determined to get up and moving. His goal [place] get [place] Patient seems to be a little confused about the surgeries and about which doctor said what. But he does know that his "veins are opened up" and his "toe is gone." Patient asks for prayer. I gladly provide prayer and a calming presence. I will continue to remain available to patient and family.
--- NOTE | 2020-03-14 13:29 | NUR ---
DR FLEMING IN TO SEE PT.
[2020-03-14] MEDS ORDERED: HUMALOG KW200 UNIT/1 SC (14:28)
--- NOTE | 2020-03-14 15:04 | NUR ---
discharged DC'D IVS, CATHETERS INTACT. REVIEWED DC PAPERWORK W/PT. VERBALIZED UNDERSTANDING OF MEDS, WOUND CARE AND FOLLOW UP INSTRUCTIONS. PT LEFT UNIT IN PERSONAL WC W/POSSESSIONS AND DC PAPERWORK IN HAND TO RIDE AWAITING OUTSIDE.
== END 2020-03-14 15:02 | disposition home or self-care (01) | DRG 253 ==
LOC: ER 12:20 → MEDS 12:21 → SURS 12:21 → MEDS 15:53 → PCU 03-12 12:02 → MEDS 03-12 12:02 → SURS 03-12 12:02 → MEDS 03-12 12:03 → PCU 03-12 19:32 → SURS 03-13 17:05
PROVIDERS: Nurse Practitioner Acute Care; Pharmacist; Physician Assistant; ADMIT Hospitalist
PROC: 047L3Z1 Dilation of Left Femoral Artery using Drug-Coated Balloon, Percutaneous Approach (ICD-10-PCS; principal; 2020-03-12)
PROC: B41GZZZ Fluoroscopy of Left Lower Extremity Arteries (ICD-10-PCS; 2020-03-12)
PROC: B41CZZZ Fluoroscopy of Pelvic Arteries (ICD-10-PCS; 2020-03-12)
PROC: B41FZZZ Fluoroscopy of Right Lower Extremity Arteries (ICD-10-PCS; 2020-03-12)
PROC: 0Y6Y0Z0 Detachment at Left 5th Toe, Complete, Open Approach (ICD-10-PCS; 2020-03-14)
DX: E11.52 Type 2 diabetes mellitus with diabetic peripheral angiopathy with gangrene (principal); M86.9 Osteomyelitis, unspecified; Z87.891 Personal history of nicotine dependence; Z79.82 Long term (current) use of aspirin; Z79.4 Long term (current) use of insulin; Z89.511 Acquired absence of right leg below knee; N18.3 Chronic kidney disease, stage 3 (moderate); E11.22 Type 2 diabetes mellitus with diabetic chronic kidney disease; I12.9 Hypertensive chronic kidney disease with stage 1 through stage 4 chronic kidney disease, or unspecified chronic kidney disease; E66.01 Morbid (severe) obesity due to excess calories; Z68.29 Body mass index [BMI] 29.0-29.9, adult
CPT/HCPCS: 36415; 37226; 37228; 75716; 75774; 80053; 80069; 82947; 83605; 84484; 85025; 85049; 85347; 85610; 85651; 85730; 86140; 87040; 93005; 93010; 96365; 96366; 96375; 97112; 97116; 97162; 99152; 99153; 99284-25; A9270; A9270-GY; C1725; C1760; C1769; C1874; C1887; C1894; C2623; G0378; J0696; J1170; J1644; J2250; J2405; J2704; J3010; J3370; J7030; J7050; Q9967

== ENCOUNTER 2020-04-01 00:26 | Day surgery (SDC) | payer OTHER ==
[~2020-04-01 00:26] MED LIST changes: +Aspir 8181 MG PO; +CARV6.25 PO; +ERGO400 PO; +FERSU300 PO; +FURO20 PO; +Flonase 0.05% N16 GM; +GABA300 PO; +HUMALOG KW200 UNIT/1 SC; +LOVA40 PO; +METF500 PO; +Omeprazole20 M1 PO; +TOUJEO SOL300 UNIT/1 SC
== END 2020-04-01 22:43 | disposition home or self-care (01) ==
LOC: WOUND 00:26
DX: E11.52 Type 2 diabetes mellitus with diabetic peripheral angiopathy with gangrene (principal); I96 Gangrene, not elsewhere classified; E11.621 Type 2 diabetes mellitus with foot ulcer; L97.529 Non-pressure chronic ulcer of other part of left foot with unspecified severity; E11.59 Type 2 diabetes mellitus with other circulatory complications; E11.22 Type 2 diabetes mellitus with diabetic chronic kidney disease; N18.9 Chronic kidney disease, unspecified; Z79.899 Other long term (current) drug therapy; Z79.82 Long term (current) use of aspirin; Z79.4 Long term (current) use of insulin
CPT/HCPCS: G0463

== ENCOUNTER 2020-04-01 11:57 | Day surgery (SDC) | payer OTHER | END 2020-04-01 22:43 | disposition home or self-care (01) | LOC: ATC 11:57 | DX: E11.621 Type 2 diabetes mellitus with foot ulcer (principal); L97.529 Non-pressure chronic ulcer of other part of left foot with unspecified severity; E11.52 Type 2 diabetes mellitus with diabetic peripheral angiopathy with gangrene; I96 Gangrene, not elsewhere classified; E11.22 Type 2 diabetes mellitus with diabetic chronic kidney disease; N18.9 Chronic kidney disease, unspecified; Z79.899 Other long term (current) drug therapy; Z79.4 Long term (current) use of insulin; Z79.82 Long term (current) use of aspirin | CPT/HCPCS: 96365 ==

== ENCOUNTER 2020-04-02 00:08 | Day surgery (SDC) | payer OTHER | END 2020-04-02 11:13 | disposition home or self-care (01) | LOC: ATC 00:08 | DX: E11.621 Type 2 diabetes mellitus with foot ulcer (principal); L97.529 Non-pressure chronic ulcer of other part of left foot with unspecified severity; E11.52 Type 2 diabetes mellitus with diabetic peripheral angiopathy with gangrene; I96 Gangrene, not elsewhere classified; E11.22 Type 2 diabetes mellitus with diabetic chronic kidney disease; N18.9 Chronic kidney disease, unspecified; Z79.82 Long term (current) use of aspirin; Z79.4 Long term (current) use of insulin; Z79.02 Long term (current) use of antithrombotics/antiplatelets; Z79.899 Other long term (current) drug therapy | CPT/HCPCS: 96365; J0696 ==

== ENCOUNTER 2020-04-03 00:11 | Day surgery (SDC) | payer OTHER | END 2020-04-03 11:34 | disposition home or self-care (01) | LOC: ATC 00:11 | DX: E11.52 Type 2 diabetes mellitus with diabetic peripheral angiopathy with gangrene (principal); I96 Gangrene, not elsewhere classified; E78.00 Pure hypercholesterolemia, unspecified; E11.22 Type 2 diabetes mellitus with diabetic chronic kidney disease; E11.51 Type 2 diabetes mellitus with diabetic peripheral angiopathy without gangrene; E11.40 Type 2 diabetes mellitus with diabetic neuropathy, unspecified; Z79.82 Long term (current) use of aspirin; Z79.4 Long term (current) use of insulin | CPT/HCPCS: 96365; J0696 ==

== ENCOUNTER 2020-04-04 00:10 | Day surgery (SDC) | payer OTHER | END 2020-04-04 11:20 | disposition home or self-care (01) | LOC: ATC 00:10 | DX: E11.52 Type 2 diabetes mellitus with diabetic peripheral angiopathy with gangrene (principal); I96 Gangrene, not elsewhere classified; E11.22 Type 2 diabetes mellitus with diabetic chronic kidney disease; N18.9 Chronic kidney disease, unspecified; E11.51 Type 2 diabetes mellitus with diabetic peripheral angiopathy without gangrene; E78.00 Pure hypercholesterolemia, unspecified; Z79.82 Long term (current) use of aspirin; Z79.4 Long term (current) use of insulin | CPT/HCPCS: 96365; J0696 ==

== ENCOUNTER 2020-04-07 00:51 | Day surgery (SDC) | payer OTHER | END 2020-04-07 22:40 | disposition home or self-care (01) | LOC: WOUND 00:51 | DX: E11.52 Type 2 diabetes mellitus with diabetic peripheral angiopathy with gangrene (principal); I96 Gangrene, not elsewhere classified; E11.59 Type 2 diabetes mellitus with other circulatory complications; E11.22 Type 2 diabetes mellitus with diabetic chronic kidney disease; E11.51 Type 2 diabetes mellitus with diabetic peripheral angiopathy without gangrene; N18.9 Chronic kidney disease, unspecified; E78.00 Pure hypercholesterolemia, unspecified; Z89.422 Acquired absence of other left toe(s); E11.40 Type 2 diabetes mellitus with diabetic neuropathy, unspecified; Z79.899 Other long term (current) drug therapy; Z79.4 Long term (current) use of insulin ==

== ENCOUNTER 2020-04-15 00:17 | Day surgery (SDC) | payer OTHER ==
[2020-04-16] MEDS ORDERED: TOUJEO MAX300 UNIT/1 SC (12:55)
[2020-04-16] MEDS ORDERED: Benazepril HCl20 MG PO (12:57)
[2020-04-16] MEDS ORDERED: HYDROCODONE-AC1 EAC1 PO (12:58)
[2020-04-16] MEDS ORDERED: SAXA2.5T PO (12:59)
== END 2020-04-15 22:50 | disposition home or self-care (01) ==
LOC: WOUND 00:17
DX: E11.52 Type 2 diabetes mellitus with diabetic peripheral angiopathy with gangrene (principal); I96 Gangrene, not elsewhere classified; E11.59 Type 2 diabetes mellitus with other circulatory complications; E11.22 Type 2 diabetes mellitus with diabetic chronic kidney disease; E78.00 Pure hypercholesterolemia, unspecified; Z79.899 Other long term (current) drug therapy; Z79.4 Long term (current) use of insulin

== ENCOUNTER 2020-04-17 09:49 | Day surgery (SDC) | payer OTHER ==
[~2020-04-17] VITALS: Ht 175.3 cm; Wt 93.6 kg
[~2020-04-17 09:49] MED LIST changes: +Benazepril HCl20 MG PO; +HYDROCODONE-AC1 EAC1 PO; +SAXA2.5T PO
[2020-04-17] MEDS ORDERED: ESCI10 PO (10:49)
[2020-04-17 11:16] LABS: BASOPHILS ABSOLUTE AUTO 0.07 K/mm3 (0.00-0.23); BASOPHILS PERCENT AUTO 1 % (0-2); EOSINOPHILS ABSOLUTE AUTO 0.15 K/mm3 (0.00-0.68); EOSINOPHILS PERCENT AUTO 1 % (0-6); Hematocrit 36.7 % (37.0-53.0); Hemoglobin 11.8 g/dL (13.5-17.5); IMMATURE GRAN ABSOLUTE AUTO 0.06 K/mm3 (0.00-0.10); IMMATURE GRAN PERCENT AUTO 1 % (0-1); LYMPHOCYTES ABSOLUTE AUTO 2.88 K/mm3 (0.84-5.20); LYMPHOCYTES PERCENT AUTO 22 % (21-46); MONOCYTES ABSOLUTE AUTO 1.09 K/mm3 (0.16-1.47); MONOCYTES PERCENT AUTO 8 % (4-13); Mean Corpuscular HGB 30.4 pg (26.0-34.0); Mean Corpuscular HGB Conc 32.2 g/dL (31.5-36.5); Mean Corpuscular Volume 95 fL (80-100); Mean Platelet Volume 11.6 fL (9.1-12.4); NEUTROPHILS ABSOLUTE AUTO 8.92 K/mm3 (1.96-9.15); NEUTROPHILS PERCENT AUTO 68 % (41-73); Platelet Count 283 K/mm3 (150-400); RDW Coefficient Variation 12.6 % (11.7-14.2); RDW Standard Deviation 43.3 fL (35.1-46.3); Red Blood Cell Count 3.88 M/mm3 (4.30-5.90); White Blood Cell Count 13.17 K/mm3 (4.00-11.30)
[2020-04-17 11:35] LABS: Bun/Creatinine Ratio 15.2 (12.0-20.0); Calcium, Blood 9.4 mg/dL (8.5-10.1); Creatinine, Blood 1.78 mg/dL (0.60-1.20); Potassium, Blood 4.8 mmol/L (3.5-5.5)
--- NOTE | 2020-04-17 15:15 | NUR ---
ADMISSION NOTE- PT TRANSFERRED FROM SUPERVISOR UNLOADING TO ICU IN BED. PT AWAKE, ALERT, COOPERATIVE. DENIES ANY PAIN, DENIES ANY NUMBNESS LEFT FOOT BUT DOES COMPLAIN OF "SOME BURNING" SENSATION ON FOOT. LEFT LEG WARM TO [place]WE[place], COOLER ANKLE AND FOOT. SENSATION INTACT, CAN MOVE FOOT. 4TH TOE DARKENED COLOR, LEFT DP VENOUS SWOOSH, QUESTIONABLE DOPPLER. TWO LARGE WOUND AREA FOOT. LUNGS CLEAR, NO SOB. NSR. BP STABLE. NPO. REVIEWED CATH PRECAUTIONS. SL LEFT FA INTACT. HEPARIN GTT AT 300 UNITS/HR AND TPA AT 2 MG/HR TO RIGHT FEMORAL SHEATH. PT CALLED , UPDATED WITH TRANSFER TO ICU. CALLED DR. OLIVO-WILL PLACE ORDERS.
--- NOTE | 2020-04-17 16:02 | NUR ---
PT RESTING WITHOUT COMPLAINTS. VSS. NO S/S BLEEDING. PULSE LEFT PT DOPPLED. POOR CAPILLARY REFILL-NO CHANGE.
--- NOTE | 2020-04-17 17:50 | NUR ---
C/O HUNGER. STATES DIABETIC. BLOOD SUGAR CHECK 50, NOTIFIED DR. SORENSEN. D50 GIVEN, BLOOD SUGAR IMPROVED 140. PT RESTING WITHOUT COMPLAINTS
--- NOTE | 2020-04-17 18:45 | NUR ---
DR. OLIVO HERE-UPDATED, ASSESSED LEFT FOOT, PULSE. FEET WARMER NOW. PLANS TO RETURN TO PROCEDURE LAB
--- NOTE | 2020-04-17 19:23 | NUR ---
REPORT TO TOOL AND MACHINE MAINTAINER, PT TO PROCEDURE IN BED,VSS. VOIDED PER URINAL. RIGHT FEMORAL SITE DI. LEFT FOOT WARM NOW, DOPPLE PULSE PT. C/O PAIN LEFT FOOT-IMPROVED WITH RX
--- NOTE | 2020-04-17 20:02 | NUR ---
ASSUMED PT CARE AT 1915 PT TO MAINTENANCE SERVICES DISPATCHER.
--- NOTE | 2020-04-17 21:20 | NUR ---
PT RETURNED TO ICU S/P ANGIOPLASTY TO LLE. ANGIOSEAL CLOSURE DEVICE IN PLACE TO RT GROIN. SITE CHECKED WITH CATALOGUE CLERK STAFF. SITE SOFT, NONTENDER, NO HEMATOMA NOTED. PULSES FOUND VIA DOPPLER LT PEDAL AND TIBIAL. PT TO REMAIN BED REST EXCEPT TO EAT, MAY RAISE HEAD OF BED TO 30 DEGREES. HEPARIN TO BE STARTED VIA VERBAL ORDERS BY DR OLIVO. HEPARIN TO BE DISCONTINUED ONCE XAROLTO HAS BEEN STARTED. PATIENT ALERT AND ORIENTED AND ABLE TO MAKE NEEDS KNOWN. WILL CONTINUE TO MONITOR RT GROIN SITE. CALL LIGHT WITHIN REACH.
[2020-04-17 22:18] LABS: International Normalized Ratio 1.01; Prothrombin Time Results 10.8 Sec (9.7-11.5)
--- NOTE | 2020-04-18 05:50 | NUR ---
END OF SHIFT SUMMARY RT FEMORAL SITE WITH ANGIOSEAL CLOSURE DEVICE IN PLACE. SITE IS SOFT AND NONTENDER WITH <3CM HEMATOMA NOTED BELOW SITE. SCANT AMOUNT OF SANGUINEOUS DRAINAGE NOTED ON DRESSING. LEFT PEDAL AND TIBIAL PULSES WITH DOPPLER. HEPARIN DRIP CURRENTLY AT 17UNITS/KG/HR. NS 75ML/HR. PLAN IS TO DISCHARGE HOME ONCE XARELTO IS STARTED AND HEPARIN IS DISCONTINUED. PT ABLE TO MAKE NEEDS KNOW. CALL LIGHT WITHIN REACH.
--- NOTE | 2020-04-18 06:25 | NUR ---
STUDENT NURSE DOCUMENTATION REVIEW I HAVE READ AND AGREE WITH ASSUMPTED PT CARE NOTE, RETURN TO ICU NOTE, WELL END OF SHIFT SUMMARY NOTES.
[2020-04-18] MEDS ORDERED: XARELTO15 MG PO (10:50)
--- NOTE | 2020-04-18 13:15 | NUR ---
CARE ASSUMED/DISCHARGE ASSESSMENT COMPLETED, DRESSING TO R GROIN SITE D/I WITH SCANT DRY SANG DRAINAGE. SMALL HEMATOMA NOTED DISTAL TO INSERTION SITE, SMALL KNOT NOTED LATERAL TO INSERTION SITE, NO BRUISING OR ACTIVE BLEEDING NOTED. PT REPORTS MILD TENDERNESS TO INSERT SITE ON PALPATION AND SORENESS TO LLE. PEDAL AND PT PULSES TO LLE BY DOPPLER ONLY, SMALL AMOUNT OF NON PITTING EDEMA PRESENT TO ANKLE AND FOOT, LARGE DRY WOUNDS X2 TO DORSAL FOOT AND 5TH TOE AMPUTATION SITE NOTED, NO DRAINAGE OR FOUL ODOR NOTED, WOUND BEDS ARE BLACK. WOUNDS CLEANSED WITH WOUND CLEANSER, DRESSED WITH TELFA AND KERLEX. VSS, PT MEDICATED X1 FOR FOOT PAIN WITH GOOD RESULTS. TOELRATED BREAKFAST WELL, IS ANXIOUS TO GO HOME. DC ORDERS AND XARELTO DOSE/FREQUENCY CLARIFIED WITH DR. OLIVO. F/U APPOINTMENTS MADE, IV'S DC'D, PT DC TO HOME WITH DC/MED/FOLLOW UP INSTRUCTIONS, VERBALIZED UNDERSTANDING. NEW RX'S SENT TO PHARMACY. PT ASSISTED INTO OWN WC AND OUT TO CAR, DC INSTRUCTIONS ALSO GIVEN TO . PT TO HOME WITH AT 1130 WITH BELONGINGS.
== END 2020-04-18 11:30 | disposition home or self-care (01) ==
LOC: MHTC 09:49 → ICUE 15:27 → MHTC 04-18 11:30
PROVIDERS: Radiology Diagnostic Radiology
DX: I70.212 Atherosclerosis of native arteries of extremities with intermittent claudication, left leg (principal); E11.51 Type 2 diabetes mellitus with diabetic peripheral angiopathy without gangrene; E11.42 Type 2 diabetes mellitus with diabetic polyneuropathy; I12.9 Hypertensive chronic kidney disease with stage 1 through stage 4 chronic kidney disease, or unspecified chronic kidney disease; E11.22 Type 2 diabetes mellitus with diabetic chronic kidney disease; N18.2 Chronic kidney disease, stage 2 (mild); Z88.1 Allergy status to other antibiotic agents; Z79.899 Other long term (current) drug therapy; Z79.4 Long term (current) use of insulin
CPT/HCPCS: 36415; 37184; 37211; 37224; 37227; 37228; 37232; 75625; 75710; 75716; 75774; 80048; 82947; 85025; 85347; 85610; 85730; 99152; 99153; A9270; A9270-GY; C1725; C1751; C1757; C1760; C1769; C1874; C1885; C1887; C1894; C2623; J0360; J1644; J2250; J2997; J3010; J7030; Q9967

== ENCOUNTER 2020-04-21 00:35 | Day surgery (SDC) | payer OTHER ==
[~2020-04-21 00:35] MED LIST changes: +XARELTO15 MG PO
== END 2020-04-21 22:44 | disposition home or self-care (01) ==
LOC: WOUND 00:35
DX: E11.52 Type 2 diabetes mellitus with diabetic peripheral angiopathy with gangrene (principal); I96 Gangrene, not elsewhere classified; E11.59 Type 2 diabetes mellitus with other circulatory complications; E11.22 Type 2 diabetes mellitus with diabetic chronic kidney disease; N18.9 Chronic kidney disease, unspecified; E78.00 Pure hypercholesterolemia, unspecified; Z79.02 Long term (current) use of antithrombotics/antiplatelets; Z79.4 Long term (current) use of insulin

== ENCOUNTER 2020-04-28 00:33 | Day surgery (SDC) | payer OTHER ==
[~2020-04-28 00:33] MED LIST changes: +HUMALOG KW100 UNIT/1 SC; -HUMALOG KW200 UNIT/1 SC
[2020-04-29] MEDS ORDERED: TRULICITY0.75 MG/01 SC (13:37)
[2020-04-29] MEDS ORDERED: TOUJEO SOL300 UNIT/2 SC ×2 (13:39→16:44)
[2020-04-29] MEDS ORDERED: ESCI10 PO (13:39)
[2020-04-29] MEDS ORDERED: LOVASTATIN40 MG PO (13:39)
[2020-04-29] MEDS ORDERED: PLAVIX75 MG PO (13:40)
[2020-04-29] MEDS ORDERED: METFORMIN HCL1000 M2 PO (13:40)
[2020-04-29] MEDS ORDERED: GENTAMICIN SULF15 GM TOP (16:47)
[2020-04-29] MEDS ORDERED: SANTYL30 G1 TOP (16:48)
[2020-04-29] MEDS ORDERED: Norco 5-325 Ta1 EACH PO (16:50)
[2020-04-29] MEDS ORDERED: ARNUITY ELLIPT50 MCG INH (17:07)
[2020-04-29] MEDS ORDERED: OMEP20ER PO (17:09)
[2020-04-29] MEDS ORDERED: FIBER GUMMIES PO (18:46)
[2020-04-29] MEDS ORDERED: ONDA4 PO (18:48)
[2020-04-29] MEDS ORDERED: MELATONIN5 M1 PO (18:50)
[2020-04-29] MEDS ORDERED: DIPH50 PO (18:51)
== END 2020-04-28 23:10 | disposition home or self-care (01) ==
LOC: WOUND 00:33
DX: E11.52 Type 2 diabetes mellitus with diabetic peripheral angiopathy with gangrene (principal); I96 Gangrene, not elsewhere classified; E11.621 Type 2 diabetes mellitus with foot ulcer; L97.529 Non-pressure chronic ulcer of other part of left foot with unspecified severity; E11.59 Type 2 diabetes mellitus with other circulatory complications; N18.3 Chronic kidney disease, stage 3 (moderate); E11.22 Type 2 diabetes mellitus with diabetic chronic kidney disease; Z87.891 Personal history of nicotine dependence

== ENCOUNTER 2020-04-29 08:08 | Inpatient (IN) | payer OTHER ==
[~2020-04-29] VITALS: Ht 175.3 cm; Wt 87.1 kg
[2020-04-29 09:25] LABS: BASOPHILS ABSOLUTE AUTO 0.06 K/mm3 (0.00-0.23); BASOPHILS PERCENT AUTO 0 % (0-2); EOSINOPHILS ABSOLUTE AUTO 0.15 K/mm3 (0.00-0.68); EOSINOPHILS PERCENT AUTO 1 % (0-6); Hematocrit 32.1 % (37.0-53.0); Hemoglobin 9.7 g/dL (13.5-17.5); IMMATURE GRAN ABSOLUTE AUTO 0.04 K/mm3 (0.00-0.10); IMMATURE GRAN PERCENT AUTO 0 % (0-1); LYMPHOCYTES ABSOLUTE AUTO 1.78 K/mm3 (0.84-5.20); LYMPHOCYTES PERCENT AUTO 13 % (21-46); MONOCYTES ABSOLUTE AUTO 0.95 K/mm3 (0.16-1.47); MONOCYTES PERCENT AUTO 7 % (4-13); Mean Corpuscular HGB Conc 30.2 g/dL (31.5-36.5); Mean Corpuscular Volume 96 fL (80-100); Mean Platelet Volume 12.2 fL (9.1-12.4); NEUTROPHILS PERCENT AUTO 78 % (41-73); Platelet Count 330 K/mm3 (150-400); RDW Coefficient Variation 12.8 % (11.7-14.2); RDW Standard Deviation 45.2 fL (35.1-46.3); Red Blood Cell Count 3.34 M/mm3 (4.30-5.90); White Blood Cell Count 13.48 K/mm3 (4.00-11.30)
[2020-04-29 09:51] LABS: Albumin, Blood 2.1 g/dL (3.4-5.0); Albumin/Globulin Ratio 0.4 (0.8-1.8); Bilirubin, Total 0.2 mg/dL (0.1-1.0); Bun/Creatinine Ratio 19.7 (12.0-20.0); C-REACTIVE PROTEIN, EXT RANGE 6.65 mg/dL (0.000-0.300); Calcium, Blood 8.3 mg/dL (8.5-10.1); Creatinine, Blood 1.52 mg/dL (0.60-1.20); Globulin, Blood 5.9 g/dL (2.2-4.0); Potassium, Blood 4.9 mmol/L (3.5-5.5)
[2020-04-29] MEDS ORDERED: TRULICITY0.75 MG/01 SC (13:37)
[2020-04-29] MEDS ORDERED: LOVASTATIN40 MG PO (13:39)
[2020-04-29] MEDS ORDERED: ESCI10 PO (13:39)
[2020-04-29] MEDS ORDERED: TOUJEO SOL300 UNIT/2 SC ×2 (13:39→16:44)
[2020-04-29] MEDS ORDERED: PLAVIX75 MG PO (13:40)
[2020-04-29] MEDS ORDERED: METFORMIN HCL1000 M2 PO (13:40)
[2020-04-29] MEDS ORDERED: GENTAMICIN SULF15 GM TOP (16:47)
[2020-04-29] MEDS ORDERED: SANTYL30 G1 TOP (16:48)
[2020-04-29] MEDS ORDERED: Norco 5-325 Ta1 EACH PO (16:50)
[2020-04-29] MEDS ORDERED: ARNUITY ELLIPT50 MCG INH (17:07)
[2020-04-29] MEDS ORDERED: OMEP20ER PO (17:09)
[2020-04-29] MEDS ORDERED: FIBER GUMMIES PO (18:46)
[2020-04-29] MEDS ORDERED: ONDA4 PO (18:48)
[2020-04-29] MEDS ORDERED: MELATONIN5 M1 PO (18:50)
[2020-04-29] MEDS ORDERED: DIPH50 PO (18:51)
--- NOTE | 2020-04-29 19:33 | NUR ---
SHIFT SUMMARY PAIN MANAGED WITH PO PAIN MEDICATION. PT IS ALERT AND ORIENTED. CALL LIGHT WITHIN REACH. AWAITING PLAN FOR TOMORROW. XARELTO ORDER TO BE CLARIFIED BY JOVON KAUR.
--- NOTE | 2020-04-29 20:20 | NUR ---
SPOKE WITH HOSPITALIST REGARDING WHETHER TO GIVE ORDERED XERELTO. HOSPITALIST INFORMED THAT PT HAS AN NPO ORDER FOR AFTER MIDNIGHT, HOWEVER IT IS UNKNOWN AT THIS TIME IF PATIENT WILL HAVE SURGERY TOMORROW. NO NOTES AVAILABLE ON CHART REGARDING TREATMENT PLAN/SCHEDULED PROCEDURES. HOSPITALIST ADVICED TO GIVE THE XERELTO.
--- NOTE | 2020-04-30 04:13 | NUR ---
SHIFT SUMMARY: PT A&O X4. LEFT FOOT GANGRENOUS AND OPEN TO AIR. ELEVATED ON PILLOW. PT HAS BEEN NPO SINCE MIDNIGHT PER ORDERS. PAIN MANAGED WITH NORCO PER EMAR. CBG'S STABLE. 2100 LANTUS HELD. AWAITING FURTHER TREATMENT PLAN.
[2020-04-30 05:34] LABS: BASOPHILS ABSOLUTE AUTO 0.06 K/mm3 (0.00-0.23); BASOPHILS PERCENT AUTO 1 % (0-2); EOSINOPHILS ABSOLUTE AUTO 0.28 K/mm3 (0.00-0.68); EOSINOPHILS PERCENT AUTO 2 % (0-6); Hematocrit 27.5 % (37.0-53.0); Hemoglobin 8.8 g/dL (13.5-17.5); IMMATURE GRAN ABSOLUTE AUTO 0.06 K/mm3 (0.00-0.10); IMMATURE GRAN PERCENT AUTO 1 % (0-1); LYMPHOCYTES ABSOLUTE AUTO 1.91 K/mm3 (0.84-5.20); LYMPHOCYTES PERCENT AUTO 16 % (21-46); MONOCYTES PERCENT AUTO 8 % (4-13); Mean Corpuscular HGB 29.4 pg (26.0-34.0); Mean Platelet Volume 11.4 fL (9.1-12.4); NEUTROPHILS PERCENT AUTO 73 % (41-73); Platelet Count 409 K/mm3 (150-400); RDW Coefficient Variation 12.6 % (11.7-14.2); RDW Standard Deviation 42.3 fL (35.1-46.3); Red Blood Cell Count 2.99 M/mm3 (4.30-5.90); White Blood Cell Count 12.31 K/mm3 (4.00-11.30)
[2020-04-30 05:44] LABS: Mean Corpuscular Volume 92 fL (80-100)
[2020-04-30 05:49] LABS: Bun/Creatinine Ratio 17.9 (12.0-20.0); Calcium, Blood 8.4 mg/dL (8.5-10.1); Creatinine, Blood 1.4 mg/dL (0.60-1.20); Potassium, Blood 4.2 mmol/L (3.5-5.5)
--- NOTE | 2020-04-30 06:31 | NUR ---
MORNING LABS SHOW CBG OF 61 AT APPORX 0451. REPEAT CBG AT 0613 SHOWS 60. PT SYMPTOMATIC AND REPORTS FEELING CLAMMY. ATTEMPTED TO CALL HOSPITALIST. NO ANSWER AT THIS TIME. PT GIVEN ORANGE JUICE WHILE WAITING FOR ORDERS.
--- NOTE | 2020-04-30 13:59 | NUR ---
REP GIVEN TO ISAI KAUR IN PCU
--- NOTE | 2020-04-30 15:15 | NUR ---
Patient arrived via gurney and received report from Maddy KAUR. Patient awake and alert and able to communicate his needs.. No pulses in left foot and sheeth in left pedal area. and sheath in right groin that both are C/D/I and no hematoma, swelling or bleeding. Abdomen distended and tight and placed 14Fr Stuart and 400 ml clear yellow urine return. Medicated with pain med per MAR and applied warm blankets. VSS See EMR. 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 He has TPA infusing right groin sheath at 1mg/hr from 1500 to 2100 then reduce to 0.5 mg/hr until back to r and d lab technician. She is also on heparin at 4.45 units/kg/hr through IV.
[2020-04-30 15:45] LABS: Source, Urine Catheter
[2020-04-30 15:50] LABS: Bilirubin, Urine Neg (Neg); Blood, Urine 1+ (Neg); Glucose Qualitative, Urine Neg (Neg); Ketones, Urine Neg (Neg); Leukocyte Esterase, Urine Neg (Neg); Nitrite, Urine Neg (Neg); Protein, Urine 3+ (Neg); Urobilinogen, Urine NORM (Normal)
[2020-04-30 16:00] LABS: Appearance, Urine Clear (Clear); Color, Urine Yellow (P-Yellow)
[2020-04-30 16:01] LABS: Bacteria Few /hpf; Squamous Epithelial Cells Not Seen /hpf (Few); White Blood Cells, Urine 0-2 /hpf (0-5)
--- NOTE | 2020-04-30 17:30 | NUR ---
Medicated with new order of Fentanyl. Patient still states pain in left foot and states when they gave him his melatonin he was able to sleep and pain reduced. slightly hypertensive with pain, repositioned and gave warm blankets. He is on RA and sats mid to upper 90%'s. Right groin site C/D/I and no hematoma or bleeding. Left foot oozing small amount of serous fluid. Elevated LLE.
--- NOTE | 2020-04-30 19:45 | NUR ---
PT ALERT AND ORIENTED X 4. PT HAS R GROIN SHEATH WITH TPA INFUSING @1MG/HR. RIGHT FOREARM PERIPHERAL IV WITH HEPARIN @3.45U/KG/HR PER DR. MOLINA ORDER. R GROIN SHEATH WITH SMALL AMOUNT OF OOZING WITHIN DRESSING SITE. I CONTINUOUSLY EDUCATED PT TO LAY FLAT AND NOT MOVE HIS HIPS, RIGHT LEG, OR FLEX THE NECK. R BKA, WARM, PINK, CAPILLARY REFILL <3 SEC. LEFT FOOT SHEATH C/D/I, NO SIGNS OF BLEEDING. 5TH DIGIT MISSING. 4TH DIGIT GANGRENOUS. LATERAL ASPECT OF LEFT FOOT GANGRENOUS FROM THE MIDDLE TO 5TH DIGIT STUMP. KNUCKLE OF FIRST DIGIT IS GANGRENOUS. MIDLINE OF MEDIAL ASPECT OF LEFT FOOT GANGRENOUS. PT C/O PAIN 10/10 IN THE LEFT FOOT, PT STATES THE PAIN IS WORSE THAN PRIOR TO PROCEDURE AND HE IS CONFIDENT THIS IS REPERFUSION PAIN. WILL GIVE PO PAIN MEDS, PT REQUESTING HIS MELATONIN.
[2020-05-01 03:06] LABS: BASOPHILS ABSOLUTE AUTO 0.06 K/mm3 (0.00-0.23); BASOPHILS PERCENT AUTO 0 % (0-2); EOSINOPHILS ABSOLUTE AUTO 0.01 K/mm3 (0.00-0.68); EOSINOPHILS PERCENT AUTO 0 % (0-6); Hematocrit 29.4 % (37.0-53.0); Hemoglobin 9.2 g/dL (13.5-17.5); IMMATURE GRAN ABSOLUTE AUTO 0.07 K/mm3 (0.00-0.10); IMMATURE GRAN PERCENT AUTO 1 % (0-1); LYMPHOCYTES PERCENT AUTO 12 % (21-46); MONOCYTES PERCENT AUTO 6 % (4-13); Mean Corpuscular HGB 28.6 pg (26.0-34.0); Mean Corpuscular HGB Conc 31.3 g/dL (31.5-36.5); Mean Corpuscular Volume 91 fL (80-100); Mean Platelet Volume 11.2 fL (9.1-12.4); NEUTROPHILS ABSOLUTE AUTO 12.12 K/mm3 (1.96-9.15); NEUTROPHILS PERCENT AUTO 81 % (41-73); Platelet Count 379 K/mm3 (150-400); RDW Coefficient Variation 12.6 % (11.7-14.2); RDW Standard Deviation 42.3 fL (35.1-46.3); Red Blood Cell Count 3.22 M/mm3 (4.30-5.90); White Blood Cell Count 14.96 K/mm3 (4.00-11.30)
[2020-05-01 03:22] LABS: Creatinine, Blood 1.33 mg/dL (0.60-1.20); Potassium, Blood 4.7 mmol/L (3.5-5.5)
--- NOTE | 2020-05-01 06:16 | NUR ---
END OF SHIFT SUMMARY PT A/O X 4. NO NEURO CHANGES. PT HAD ONE INSTANCE OF NAUSEA AND VOMITING, RESOLVED WITH ZOFRAN. PT STARTED SHIFT WITH REPERFUSION PAIN, STATED THE PAIN WAS MUCH BETTER THIS AM. LEFT FOOT IS WARM TO TOUCH, POST TIBIAL PULSE FOUND WITH DOPPLER. LEFT PEDAL SHEATH IS C/D/I WITH NO SIGNS OF BLEEDING. R FEMORAL SHEATH W/O HEMATOMA. OOZING SMALL AMOUNT OF BLOOD AROUND SITE. PALPABLE RIGHT POPLITEAL PULSE. URINE IN CATHETER TUBING HAD A SMALL TINGE OF PINK, CLEARED UP THROUGHOUT THE NIGHT. TPA AND HEPARIN RUNNING PER ORDERS.
--- NOTE | 2020-05-01 06:42 | NUR ---
2137 AND 0300 LEFT FOOT SHEATH FLUSHED AFTER LAB DRAW.
--- NOTE | 2020-05-01 09:35 | NUR ---
PT AWAKE THIS AM ON BEDREST IN SUPINE POSITION FOR RIGHT ART SHEATH. TPA INFUSING INTO R SHEATH AT 0.5MG/HR AND HEPARIN GTT INFUSING PERIPHERALLY AT 3.45UNITS/KG/HR. THERE IS OLD BLOOD UNDER THE R SHEATH DRSG AND SCANT AMT DRIED BLOOD TO GROIN. R GROIN SITE IS SOFT WITHOUT HEMATOMA OR ACTIVE BLEED. PT C/O PAIN 9/10 TO LEFT FOOT. PT STATES HIS NORMAL PAIN LEVEL IS AROUND AN 8/10. FAINT DOPPLER TO LEFT P.T. ONLY. THERE IS A SHEATH TO LEFT FOOT THAT IS SALINE LOCKED. THIS SHEATH FLUSHED W/O DIFF PER ORDERS. LEFT FOOT FLUSHED W GOOD CAP REFILL. THERE ARE TWO LARGE AREAS OF NECROTIC WOUNDS TO LEFT FOOT. LEFT FOOT ELEVATED ON PILLOW. PT'S BACK/BOTTOM CHECKED; SKIN INTACT. PT MEDICATED WITH FENT 25MCG AND ONE NORCO. PT GIVEN SOME CLEAR FLUIDS WITH MEDICATION PROCEDURE IS NOT SCHEDULED UNTIL THIS AFTERNOON
--- NOTE | 2020-05-01 10:02 | NUR ---
DR LICEA IN TO SEE PT PT PLACED ON SPONT PS 8, FIO2 60%, PEEP 10. PT TOLERATING WELL. DR LICEA GIVEN FULL UPDATE. NA DRAWN. TF TO BE STARTED WELL UNASYN. PT'S FATHER CALLED AND GIVEN UPDATE. DR LICEA TO CALL PT'S FRANCIA LEDEZMA, PT'S SISTER TO GIVE UPDATE.
--- NOTE | 2020-05-01 12:02 | NUR ---
DR FLEMING IN TO SEE PT; NO NEW ORDERS. PT NPO FOR STUBBER SCHEDULED AROUND 1330. PT C/O PAIN 08/30 TO LEFT FOOT; FENT D50MCG GIVEN. PT APPEARS COMFORTABLE WATCHING TV IN [place]VERSE [place] POSITION. RIGHT GROIN SHEATH SITE AND LEFT FOOT SHEATH SITE REMAIN STABLE/WNL. LEFT FOOT REMAINS FLUSHED/RED, GOOD CAP REFILL, P.T. VIA DOPPLER.
--- NOTE | 2020-05-01 12:52 | NUR ---
Spiritual care visit conducted. Because therapeutic alliance is already established, patient immediately shares about his confusion about what procedure was done the prior day, who his doctors are or why he was stuck in in bed and asked not to move. We unwind these questions as Dr. Rock and VINCENT Arzate explain the answers. Patient seemed to understand after much repeating and reminding. Patient also told me that he is having hallucenations and is talking to people that are not in the room. We talk about the fear and unsettled feelings this creates. We discuss ways to center his thoughts and the help that prayer and meditation can have on bringing more peace and focus. I listen empathically and provide companionship, pastoral legal counsel and prayer. Patient responds well and shows signs of increased peace. I will continue to remain available to patient and family.
--- NOTE | 2020-05-01 17:16 | NUR ---
PT BACK FROM SUPERVISOR OFFSET PLATE PREPARATION AT 1650. PT AWAKE AND ALERT. C/O PAIN 10/10 TO LEFT FOOT. LEFT FOOT WARM AND SLIGHTLY PALE TO TOES. CAP REFIL <3SEC BUT SLIGHTLY SLOWER THAN LAST ASSESSED. PULSES TO POSITIVE VIA DOPPLER, PULSES ALSO STRONGER; THIS IS AN IMPROVEMENT. R FEMORAL SITE HAS ANGIOSEAL. SM MARBLE AT SITE; THIS REVIEWED W SUPERVISOR OFFSET PLATE PREPARATION. WILL MONITOR PER PROTOCOL. NO BLEEDNG OR OTHER SWELLING NOTED TO THIS SITE. 2+ POP PULSE TO RIGHT SIDE. PT PALE AND SLIGHTLY NAUSEATED; ZOFRAN GIVEN. WARM BLANKETS GIVEN. WILL UPDATE PT;S PERPT REQUEST. VSS.
--- NOTE | 2020-05-01 18:42 | NUR ---
RIGHT GROIN SITE REMAINS STABLE W/O CHANGES. LEFT FOOT PERFUSION IS IMPROVED. FOOT RED, WARM, W PALP 2+ PT/DP PULSES. 2+ POP PULSE TO RIGHT SIDE. PT SLEEPING. NAUSEA IMPROVED. PT ABLE TO TOLERATE OJ AND MEDS. PT'S WAS CALLED AND GIVEN UPDATE PER PT REQUEST. NORCO GIVEN FOR PAIN 10/10; PT ABLE TO FALL ASLEEP; APPEARS COMFORTABLE.
--- NOTE | 2020-05-01 20:00 | NUR ---
PT A&O X 4. RESTING CALMLY IN BED. POST CATH PROCEDURE ORDERS FOR PT TO REMAIN FLAT 4 HOURS POST PROCEDURE. LEFT FOOT SHEATH AND R FEMORAL SHEATH REMOVED IN OTR DRIVER. ANGIOSEAL DEVICE IN R FEMORAL ARTERY ACCESS SITE. SMALL MARBLE SIZED PALPABLE HEMATOMA AT SITE. PALPABLE R POPLITEAL PULSE. DOPPLER PULSES ON LEFT LOWER EXTREMITY. CAP REFILL <3SECONDS. LEFT FOOT PINK AND WARM. HEPARIN INFUSING @ 3.45U/KG/HR INTO RH IV.
--- NOTE | 2020-05-02 06:20 | NUR ---
SHIFT SUMMARY PT A&OX4. NO NEURO CHANGES. REPERFUSION PAIN 08/30 TREATED WITH FENTANY @2031. PAIN WITHIN ACCEPTABLE LIMITS PER PATIENT AFTER ADMIN. PT ON SUPPLEMENTAL OXYGEN SECONDARY TO BRIEF APNEIC MOMENTS WHILE SLEEPING. HEPARIN BOLUS OF 4,350U (0.87ML) @0427. HEPARIN TITRATED FROM 15U/KG/HR UP TO 17U/KG/HR (29.6ML/HR) BASED OFF 87KG @0434 WITH A TARGET PTT OF 55-85. HEPARIN INFUSING IN 20GA IV RH. LLE PULSES PRESENT WITH DOPPLER, R POPLITEAL PULSE STRONG VIA PALPATION. R FEMORAL AND LLE SITE REMAIN STABLE, NO HEMATOMA.
--- NOTE | 2020-05-02 07:01 | NUR ---
REC'D BEDSIDE REPORT FROM VINCENT JOHNSON AND SN SANTIAGO. HEPARIN GTT CHECKED WITH ORDER.
--- NOTE | 2020-05-02 07:34 | NUR ---
AM ASSESSMENT: PT INITIALLY SLEEPING. STARTLES EASILY WHEN WAKING. PT IS A+0X3. PLEASANT AND COOPERATIVE WITH CARE. PT APPEARS SLIGHTLY [place] BUT DOES NOT WEAR HEARING AIDS. REPORTS PAIN IN THE LT FOOT 5/10 AT THIS TIME. WILL MEDICATE PER ORDERS PRN. LUNGS ARE CLEAR T/O BILATERALLY. SP02 99% ON 2L O2 VIA N/C. PT PLACED ON RA AT THIS TIME. HR REGULAR, SR-60'S RANGE. HEPARIN GTT CONT PER PHARMACY'S DIRECTION. HX RT BKA AND LT FT WITH EXTENSIVE ESCAR TO THE LT LATERAL ASPECT OF FOOT/ LT MEDIAL ASPECT. PT WITH RT GROIN SITE AND LT DORSAL SITE ARE STABLE. NOT NEW BLEEDING/HEMATOMA. DRIED BLOOD MARKED ON [employer] DRSG ON FT.
--- NOTE | 2020-05-02 10:33 | NUR ---
PT UPDATE: PT REPORTS LT LE PAIN HAS IMPROVED SINCE PO PAIN MEDS. HOWEVER, NOW PT C/O RAM AND IS VISIBLY DIAPHORETIC. CHECKED CBG PRE MEAL CBG WAS 70. CBG-178. REMOVED MULTIPLE COVERS FROM PT TO SEE IF THIS REDUCES DIAPHORESIS. PT TO CALL FOR FURTHER INTERVENTION IF HEADACHE DOES NOT SUBSIDE.
--- NOTE | 2020-05-02 12:07 | NUR ---
PT UPDATE: PT SAT AT THE SIDE OF THE BED FOR A BEDBATH. MINOR CATH REMOVED AT THIS TIME. 250ML OUT IN [facility]KO URINE. URINAL PLACED AT THE BEDSIDE. PT PIVOT TRANSFERRED TO CHAIR AT THE BEDSIDE. PHOTOS TAKEN OF LT FT/RT KNEE. PT DENIES ANY NAUSEA AT THIS TIME AND DID BETTER FOR LUNCH IN COMPARISON TO THIS AM.
--- NOTE | 2020-05-02 12:19 | NUR ---
DR FLEMING AT THE BEDSIDE AND REPORTS PT IS TO BE DISCHARGED HOME TODAY. PT TO RECIEVE ONE DOSE OF XERALTO BEFORE DISCHARGE, AND HEPARIN GTT TO BE D/C'D. PT CALLING FOR TRANSPORTATION HOME. AWAITING 'S ORDERS FOR DISCHARGE.
--- NOTE | 2020-05-02 12:51 | NUR ---
CALLED IN RX TO [facility] AND LEFT MESSAGE WITH DR SNOW OFFICE TO MAKE APPT FOR CONSULT WITH DR SNOW. AWAITING A CALL BACK.
[2020-05-02] MEDS ORDERED: ACET325 PO (13:16)
[2020-05-02] MEDS ORDERED: CLOP75 PO (13:17)
[2020-05-02] MEDS ORDERED: SENNA LAXATIVE8.6 MG PO (13:19)
--- NOTE | 2020-05-02 13:48 | NUR ---
Spitiual care visit conducted. Patient is in the DC process. Patient tells me he has much more feeling in his leg and is hoping that there is enough blood flow to heal the wounds on his foot. Patient has concerns that he will be too much trouble to his when he gets home. I listen empathically, discuss the sacrificial love that cares for each other in sickness and in health, provide pastoral residential treatment counselor and prayer. Patient responds well and displays evidence of reduced stress. Rohit thanks me for the time and care given during his many stays at the hospital.
--- NOTE | 2020-05-02 14:32 | NUR ---
DISCHARGE NOTE: VERBAL/WRITTEN DICHARGE INSTRUCTIONS GIVEN TO PT RE: MEDS/ FOLLOW UP APPTS/CONSULTS. ALL QUESTION ANSWERE. IV'S D/C'D, CATH INTACT. RX FOR NORCO GIVEN TO PT. ATIVITY RESTRICTIONS DISCUSSED. PT ASSISTE WITH DRESSING AND INTO W/C AND ESCORTE TO 'S CAR AT THE ER TENT.
== END 2020-05-02 14:28 | disposition home or self-care (01) | DRG 253 ==
LOC: ER 08:08 → SURS 12:55 → ICUE 12:55 → SURS 12:55 → ICUE 12:55 → SURS 15:47 → ICUE 04-30 14:27
PROVIDERS: Emergency Medicine; ADMIT Internal Medicine
PROC: B41G1ZZ Fluoroscopy of Left Lower Extremity Arteries using Low Osmolar Contrast (ICD-10-PCS; principal; 2020-04-30)
PROC: 3E05317 Introduction of Other Thrombolytic into Peripheral Artery, Percutaneous Approach (ICD-10-PCS; 2020-04-30)
PROC: 047N3DZ Dilation of Left Popliteal Artery with Intraluminal Device, Percutaneous Approach (ICD-10-PCS; 2020-05-01)
PROC: 047L3ZZ Dilation of Left Femoral Artery, Percutaneous Approach (ICD-10-PCS; 2020-05-01)
PROC: 047Q3ZZ Dilation of Left Anterior Tibial Artery, Percutaneous Approach (ICD-10-PCS; 2020-05-01)
PROC: B41G1ZZ Fluoroscopy of Left Lower Extremity Arteries using Low Osmolar Contrast (ICD-10-PCS; 2020-05-01)
DX: I70.262 Atherosclerosis of native arteries of extremities with gangrene, left leg (principal); R65.10 Systemic inflammatory response syndrome (SIRS) of non-infectious origin without acute organ dysfunction; N17.9 Acute kidney failure, unspecified; E87.1 Hypo-osmolality and hyponatremia; I70.92 Chronic total occlusion of artery of the extremities; E11.52 Type 2 diabetes mellitus with diabetic peripheral angiopathy with gangrene; Z89.511 Acquired absence of right leg below knee; Z79.4 Long term (current) use of insulin; Z79.82 Long term (current) use of aspirin; E11.22 Type 2 diabetes mellitus with diabetic chronic kidney disease; Z89.422 Acquired absence of other left toe(s); E11.40 Type 2 diabetes mellitus with diabetic neuropathy, unspecified; N18.3 Chronic kidney disease, stage 3 (moderate)
CPT/HCPCS: 36140; 36415; 37211; 37214; 37226; 37228; 51702; 73630; 75716; 75774; 76937; 80048; 80053; 81001; 82947; 85025; 85347; 85384; 85651; 85730; 86140; 96365; 96367; 99152; 99153; 99285-25; A9270-GY; C1725; C1760; C1769; C1874; C1887; C1894; J1644; J2060; J2250; J2405; J2543; J2997; J3010; J3370; J7030; J7042; J7050; Q9967

== ENCOUNTER 2020-05-09 09:43 | Inpatient (IN) | payer OTHER ==
[~2020-05-09] VITALS: Ht 172.7 cm; Wt 88.3 kg
[~2020-05-09 09:43] MED LIST changes: +DIPH50 PO; +FIBER GUMMIES PO; +FLONASE ALLERG9.9 ML; +GENTAMICIN SULF15 GM TOP; +LOVASTATIN40 MG PO; +MELATONIN5 M1 PO; +METFORMIN HCL1000 M2 PO; +Norco 5-325 Ta1 EACH PO; +OMEP20ER PO; +PLAVIX75 MG PO; +SANTYL30 G1 TOP; +SENNA LAXATIVE8.6 MG PO; +TOUJEO SOL300 UNIT/2 SC; +TRULICITY0.75 MG/01 SC
--- NOTE | 2020-05-09 13:15 | NUR ---
History, Chart, Medications and Allergies reviewed before start of procedure.Lungs clear T/O to Auscultation. Patient confirms NPO status and agrees with scheduled surgery. Pre-Op teaching done. Pt verbalizes understanding. Patient States Post-Procedure ride home has been arranged. Patient reports completing Chlorhexadine shower X2 prior to admission to hospital.
--- NOTE | 2020-05-09 13:32 | NUR ---
Patient stopped in the hallway while he is waiting for surgery. I meet patient's and provide pre-surgery. Patient responds well and shows signs of improved peace.
--- NOTE | 2020-05-09 19:00 | NUR ---
1630 LEFT FOOT DRESSING SATURATED AT HEEL AREA AND DRIPPING BLOOD ONTO FLOOR. OUTER DRESSING REINFORCED AND PRESSURE HELD X5 MIN. DR SNOW ARRIVED AND REDRESSED LEFT FOOT WITH GAUZE, ABD'S AND COBAN. PTS TOES SLIGHTLY DUSKY BUT WARM AND CAPILLARY REFILL LESS THAN 3 SECONDS
--- NOTE | 2020-05-09 19:02 | NUR ---
SUMMARY LEFT FOOT DRESSING DRY AND INTACT, LEFT LEG ELEVATED ON PILLOWS. PT MEDICATED FOR PAIN X1. RICKIE PO FOOD AND FLUIDS WITHOUT NAUSEA
--- NOTE | 2020-05-09 20:03 | NUR ---
PRESSURE DRESSING REMOVED AT 1930. NO SIGNS OF ACTIVE BLEEDING. NUNO WRAP PLACED. LEG ELEVATED.
--- NOTE | 2020-05-10 04:24 | NUR ---
SHIFT SUMMARY PT HAS BEEN A/O X4. S/P TOE AMPUTATION TO L FOOT. PER REPORT, PT HAD SIGNIFICANT BLEEDING ON DAY SHIFT 05/09. COMPRESSION DRESSING WAS PLACED ON DAY SHIFT. COBAN REPLACED WITH NUNO WRAP AT APPROX 1899 AND DRESSING ASSESSED WITH DAYSHIFT RN. SINCE 1899 THERE HAVE BEEN NO SIGNS OF ACTIVE BLEEDING. DRESSING HAS REMAINED CDI. THERE IS A SMALL AMT OF DRIED BLOOD SEEN ON THE DRESSING NEAR THE TOES, WHICH WAS PRESENT AT START OF SHIFT AND HAS NOT INCREASED. L LEG HAS BEEN ELEVATED ON PILLOW THROUGHOUT THE SHIFT. PT EDUCATED ABOUT KEEPING LEG ELEVATED. PAIN MANAGED WITH PO PAIN MED PER ORDERS. CONT. BIOX AND TELE IN PLACE THROUGHOUT SHIFT. PT IS TOLERATING PO INTAKE AND VOIDING. NO ACUTE CHANGES OVERNIGHT. ASSISTED WITH ADL'S PRN.
[2020-05-10 04:37] LABS: BASOPHILS ABSOLUTE AUTO 0.06 K/mm3 (0.00-0.23); BASOPHILS PERCENT AUTO 1 % (0-2); EOSINOPHILS ABSOLUTE AUTO 0.25 K/mm3 (0.00-0.68); EOSINOPHILS PERCENT AUTO 2 % (0-6); Hematocrit 21.4 % (37.0-53.0); Hemoglobin 6.4 g/dL (13.5-17.5); IMMATURE GRAN ABSOLUTE AUTO 0.08 K/mm3 (0.00-0.10); IMMATURE GRAN PERCENT AUTO 1 % (0-1); LYMPHOCYTES ABSOLUTE AUTO 2.46 K/mm3 (0.84-5.20); LYMPHOCYTES PERCENT AUTO 20 % (21-46); MONOCYTES ABSOLUTE AUTO 1.05 K/mm3 (0.16-1.47); MONOCYTES PERCENT AUTO 9 % (4-13); Mean Corpuscular HGB 27.5 pg (26.0-34.0); Mean Corpuscular HGB Conc 29.9 g/dL (31.5-36.5); Mean Corpuscular Volume 92 fL (80-100); Mean Platelet Volume 11.5 fL (9.1-12.4); NEUTROPHILS ABSOLUTE AUTO 8.18 K/mm3 (1.96-9.15); NEUTROPHILS PERCENT AUTO 68 % (41-73); Platelet Count 351 K/mm3 (150-400); RDW Coefficient Variation 13.2 % (11.7-14.2); RDW Standard Deviation 44.3 fL (35.1-46.3); Red Blood Cell Count 2.33 M/mm3 (4.30-5.90); White Blood Cell Count 12.08 K/mm3 (4.00-11.30)
--- NOTE | 2020-05-10 04:53 | NUR ---
AM LABS SHOWED LOW H&H. DR. FLEMING NOTIFIED. 1 UNIT PRBC'S ORDERED.
[2020-05-10 04:55] LABS: Albumin, Blood 1.8 g/dL (3.4-5.0); Albumin/Globulin Ratio 0.4 (0.8-1.8); Bilirubin, Total 0.1 mg/dL (0.1-1.0); Calcium, Blood 7.9 mg/dL (8.5-10.1); Creatinine, Blood 1.68 mg/dL (0.60-1.20); Globulin, Blood 4.7 g/dL (2.2-4.0); Magnesium, Blood 2.1 mg/dL (1.6-2.4); Potassium, Blood 4.8 mmol/L (3.5-5.5); Total Protein, Blood 6.5 g/dL (6.4-8.2)
--- NOTE | 2020-05-10 06:10 | NUR ---
DISCUSSED ADMINISTERING BLOOD WITH PT. PT REPORTS THAT HE HAD TRANSFUSION ABOUT A YEAR AGO WHEN HE HAD HIS RIGHT BKA. PT REPORTS THAT WITH TRANSFUSION HE GOT VERY SHORT OF BREATH AND WAS TOLD HE HAD "TOO MUCH FLUID" WHICH IS WHY HE "COULDN'T BREATH". REPORTS TRANSFUSION WAS STOPPED. RN NOTIFIED HOSPITALIST DR. FRANCO OF THIS HX. REPORTS TO TRANSFUSE BLOOD, MONITOR CLOSELY, AND TO CALL IF SIGNS OF SHORTNESS OF BREATH OCCUR.
[2020-05-10 14:52] LABS: Hemoglobin 8.4 g/dL (13.5-17.5); Mean Corpuscular HGB 27.8 pg (26.0-34.0); Mean Corpuscular HGB Conc 31.1 g/dL (31.5-36.5); Mean Platelet Volume 11.7 fL (9.1-12.4); Platelet Count 321 K/mm3 (150-400); RDW Coefficient Variation 15.4 % (11.7-14.2); Red Blood Cell Count 3.02 M/mm3 (4.30-5.90); White Blood Cell Count 12.94 K/mm3 (4.00-11.30)
[2020-05-10 14:59] LABS: Mean Corpuscular Volume 89 fL (80-100)
--- NOTE | 2020-05-10 16:16 | NUR ---
Shift summary Patient received 2 units PRBC this shift. Patient received IV Lasix in between units. LLE elevated on 2 pillows in bed. Dressing to left food has dried red drainage. Patient to work with physical therapy after cleared by podiatry. VSS. Call light within patient reac.
--- NOTE | 2020-05-11 01:15 | NUR ---
VOIDING PT NOTED TO HAVE NOT VOIDED SINCE 1529. PT ENCOURAGED TO USE URINAL; REFUSED. BLADDER SCAN SHOWED 728ML'S. PT AGAIN ENCOURAGED TO USE URINAL. PT STATES "I DON'T PEE AT ONE IN THE MORNING! GIVE ME A COUPLE MORE HOURS". PT REPORTS HE VOIDED 3 TIMES DURING THE DAY. PT EDUCATED ABOUT RETAINING URINE AND POSSIBILITY OF NEEDING TO STRAIGHT CATH IF UNABLE TO VOID. PT CONTINUED TO REFUSE TO ATTEMPT TO USE URINAL. DISCUSSED WITH SOFTWARE DEVELOPMENT ANALYST.
[2020-05-11 04:09] LABS: BASOPHILS ABSOLUTE AUTO 0.06 K/mm3 (0.00-0.23); BASOPHILS PERCENT AUTO 0 % (0-2); EOSINOPHILS PERCENT AUTO 2 % (0-6); Hematocrit 26.3 % (37.0-53.0); Hemoglobin 8.1 g/dL (13.5-17.5); IMMATURE GRAN ABSOLUTE AUTO 0.11 K/mm3 (0.00-0.10); IMMATURE GRAN PERCENT AUTO 1 % (0-1); LYMPHOCYTES ABSOLUTE AUTO 1.93 K/mm3 (0.84-5.20); LYMPHOCYTES PERCENT AUTO 14 % (21-46); MONOCYTES ABSOLUTE AUTO 0.99 K/mm3 (0.16-1.47); MONOCYTES PERCENT AUTO 7 % (4-13); Mean Corpuscular HGB 27.4 pg (26.0-34.0); Mean Corpuscular HGB Conc 30.8 g/dL (31.5-36.5); Mean Corpuscular Volume 89 fL (80-100); Mean Platelet Volume 11.4 fL (9.1-12.4); NEUTROPHILS ABSOLUTE AUTO 10.68 K/mm3 (1.96-9.15); NEUTROPHILS PERCENT AUTO 76 % (41-73); Platelet Count 337 K/mm3 (150-400); RDW Coefficient Variation 15.4 % (11.7-14.2); Red Blood Cell Count 2.96 M/mm3 (4.30-5.90); White Blood Cell Count 14.07 K/mm3 (4.00-11.30)
[2020-05-11 04:24] LABS: Bun/Creatinine Ratio 16.8 (12.0-20.0); Calcium, Blood 8.2 mg/dL (8.5-10.1); Creatinine, Blood 2.08 mg/dL (0.60-1.20); Potassium, Blood 4.9 mmol/L (3.5-5.5)
--- NOTE | 2020-05-11 06:31 | NUR ---
SHIFT SUMMARY PT IS A/O X4 ALTHOUGH SEEMS FORGETFUL AT TIMES. PT HAS BEEN RESTING IN BED THROUGHOUT THE NIGHT. PAIN MANAGED WITH PO PAIN MED PER ORDERS. ABOUT 0100 PT WAS NOTED TO HAVE NOT VOIDED FOR SOME TIME. PT REFUSED TO USE URNIAL HE FELT HE DID NOT HAVE TO VOID. BLADDER SCAN SHOWED 728. PT AGAIN ENCOURAGED TO USE URINAL BUT AGAIN REFUSED. EDUCATION PROVIDED. ABOUT 0430 PT GOT UP TO COMMODE WITH ASSISTANCE BUT WAS UNABLE TO VOID. ORDER FOR STRAIGHT CATH OBTAINED & STRAIGHT CATH COMPLETED. WHILE UP TO COMMODE PT HAD SOME BLEEDING FROM L FOOT DRESSING. ONCE BACK TO BED, DRESSING WAS REINFORCED WITH KRILEX AND COBAN. LEG ELEVATED ON PILLOWS. PT ALSO REPORTED SOME NAUSEA AND WAS MED WITH ZOFRAN. AT THIS TIME PT IS RESTING IN BED WITH EYES CLOSED. CALL LIGHT IN REACH.
[2020-05-11 15:21] LABS: BASOPHILS ABSOLUTE AUTO 0.06 K/mm3 (0.00-0.23); BASOPHILS PERCENT AUTO 0 % (0-2); EOSINOPHILS ABSOLUTE AUTO 0.33 K/mm3 (0.00-0.68); EOSINOPHILS PERCENT AUTO 2 % (0-6); Hematocrit 26.2 % (37.0-53.0); Hemoglobin 8.1 g/dL (13.5-17.5); IMMATURE GRAN PERCENT AUTO 1 % (0-1); LYMPHOCYTES ABSOLUTE AUTO 2.39 K/mm3 (0.84-5.20); LYMPHOCYTES PERCENT AUTO 17 % (21-46); MONOCYTES PERCENT AUTO 8 % (4-13); Mean Corpuscular HGB 27.5 pg (26.0-34.0); Mean Corpuscular HGB Conc 30.9 g/dL (31.5-36.5); Mean Corpuscular Volume 89 fL (80-100); Mean Platelet Volume 11.7 fL (9.1-12.4); NEUTROPHILS ABSOLUTE AUTO 10.25 K/mm3 (1.96-9.15); NEUTROPHILS PERCENT AUTO 72 % (41-73); Platelet Count 334 K/mm3 (150-400); RDW Coefficient Variation 15.3 % (11.7-14.2); RDW Standard Deviation 49.9 fL (35.1-46.3); Red Blood Cell Count 2.95 M/mm3 (4.30-5.90); White Blood Cell Count 14.23 K/mm3 (4.00-11.30)
--- NOTE | 2020-05-11 15:38 | NUR ---
SHIFT SUMMARY PT IS A/O X 4 AND HAS C/O PAIN TO HIS LEFT FOOT. HE HAS BEEN MEDICATED ORDERED AND NOW REPORTS IT TO BE EFFECTIVE. HE CONTINUES TO RETAIN URINE AND THE DR IS AWARE. PT REPORTS THAT HE HAS NO URGE TO GO SO FLUIDS HAVE BEEN ENCOURAGED. HIS FAMILY IS AT THE BEDSIDE. DRESSING TO HIS LEFT FOOT REMAINS C.D.I. AND POSITIVE FOR CMS. HE IS PLEASANT AND COOPERATIVE WITH HIS CARE AND CALLS FOR HELP WHEN NEEDED.
[2020-05-11 17:09] LABS: Source, Urine Catheter
[2020-05-11 17:16] LABS: Appearance, Urine Clear (Clear); Bilirubin, Urine Neg (Neg); Blood, Urine 5+ (Neg); Color, Urine Yellow (P-Yellow); Glucose Qualitative, Urine Neg (Neg); Ketones, Urine Neg (Neg); Leukocyte Esterase, Urine Neg (Neg); Nitrite, Urine Neg (Neg); Protein, Urine 2+ (Neg); Urobilinogen, Urine NORM (Normal)
[2020-05-11 17:22] LABS: Bacteria Few /hpf; Squamous Epithelial Cells Rare /hpf (Few); White Blood Cells, Urine 0-2 /hpf (0-5)
[2020-05-12 04:20] LABS: BASOPHILS ABSOLUTE AUTO 0.05 K/mm3 (0.00-0.23); BASOPHILS PERCENT AUTO 0 % (0-2); EOSINOPHILS ABSOLUTE AUTO 0.31 K/mm3 (0.00-0.68); EOSINOPHILS PERCENT AUTO 3 % (0-6); Hematocrit 24.7 % (37.0-53.0); Hemoglobin 7.7 g/dL (13.5-17.5); IMMATURE GRAN ABSOLUTE AUTO 0.08 K/mm3 (0.00-0.10); IMMATURE GRAN PERCENT AUTO 1 % (0-1); LYMPHOCYTES ABSOLUTE AUTO 2.05 K/mm3 (0.84-5.20); LYMPHOCYTES PERCENT AUTO 17 % (21-46); MONOCYTES ABSOLUTE AUTO 0.94 K/mm3 (0.16-1.47); MONOCYTES PERCENT AUTO 8 % (4-13); Mean Corpuscular HGB 27.7 pg (26.0-34.0); Mean Corpuscular HGB Conc 31.2 g/dL (31.5-36.5); Mean Corpuscular Volume 89 fL (80-100); Mean Platelet Volume 11.5 fL (9.1-12.4); NEUTROPHILS ABSOLUTE AUTO 8.34 K/mm3 (1.96-9.15); NEUTROPHILS PERCENT AUTO 71 % (41-73); Platelet Count 322 K/mm3 (150-400); RDW Coefficient Variation 14.9 % (11.7-14.2); RDW Standard Deviation 48.4 fL (35.1-46.3); Red Blood Cell Count 2.78 M/mm3 (4.30-5.90); White Blood Cell Count 11.77 K/mm3 (4.00-11.30)
[2020-05-12 04:44] LABS: Bun/Creatinine Ratio 16.7 (12.0-20.0); Calcium, Blood 8.4 mg/dL (8.5-10.1); Creatinine, Blood 2.03 mg/dL (0.60-1.20); Potassium, Blood 4.8 mmol/L (3.5-5.5)
--- NOTE | 2020-05-12 05:33 | NUR ---
SHIFT SUMMARY: SERGEY IS A&OX4. HE HAS BEEN PLEASANT AND COOPERATIVE WITH CARE THIS SHIFT. HGB 7.7 THIS AM, HOSPITALIST EMERGENCY MEDICINE MEDICAL DIRECTOR NOTIFIED. DRESSING TO LEFT FOOT INTACT WITH NO NEW DRAINAGE. MINOR DRAINING CLOUDY, RUST COLORED URINE. HE REPORTS A BURNING SENSATION WHEN THE CATHETER WAS INSERTED AND INTERMITTENTLY SINCE. HE REPORTS ADEQUATE PAIN CONTROL WITH TWO NORCO 5/325 MG. HE HAS HAD NO VOMITINING OR DIARRHEA, BUT DOES REPORT SOME MILD, INTERMITTENT NAUSEA. HE IS TOLERATING PO INTAKE WELL. HE STAES HE IS ANXIOUS TO GO HOME. HE USES HIS CALL LIGHT APPROPRIATELY. VSS, CONTINUOUS BIOX IN PLACE. WILL REPORT TO DAY SHIFT RN.
--- NOTE | 2020-05-12 12:56 | NUR ---
Patient is lying in the dark but alert. Patient turns on light and because therapeutic alliance is already established patient immediately shares about his personal struggles, about family unit complications and about his confusion and irritability toward staff when his blood sugar numbers are off. Patient tells me about his fears over the loss of blood. I listen empathically and provide companionship, emotional support and prayer. Patient responds well and shows signs of an elevated mood. I will continue to remain avaliable to patient and family.
[2020-05-12 17:27] LABS: Hemoglobin 10.3 g/dL (13.5-17.5); Mean Corpuscular HGB 27.9 pg (26.0-34.0); Mean Corpuscular HGB Conc 31.2 g/dL (31.5-36.5); Mean Corpuscular Volume 89 fL (80-100); Mean Platelet Volume 11.5 fL (9.1-12.4); Platelet Count 348 K/mm3 (150-400); RDW Coefficient Variation 14.6 % (11.7-14.2); RDW Standard Deviation 47.6 fL (35.1-46.3); Red Blood Cell Count 3.69 M/mm3 (4.30-5.90); White Blood Cell Count 14.23 K/mm3 (4.00-11.30)
--- NOTE | 2020-05-12 19:40 | NUR ---
SHIFT SUMMARY DR SNOW INTO SEE PT AND CHANGE DRSG. SMYTH FOR DC FROM HIS CARE. PAIN WELL MANAGED. WORKED WITH THERAPY. 2 UNITS PRBC GIVEN. UNABLE TO VOID POST MINOR REMOVAL. STRAIGHT CATH COMPLETED. URINE LESS RED. MORE TIFFANY COLORED.
[2020-05-13 04:01] LABS: BASOPHILS ABSOLUTE AUTO 0.07 K/mm3 (0.00-0.23); BASOPHILS PERCENT AUTO 1 % (0-2); EOSINOPHILS ABSOLUTE AUTO 0.37 K/mm3 (0.00-0.68); EOSINOPHILS PERCENT AUTO 3 % (0-6); Hematocrit 31.1 % (37.0-53.0); Hemoglobin 9.8 g/dL (13.5-17.5); IMMATURE GRAN ABSOLUTE AUTO 0.08 K/mm3 (0.00-0.10); IMMATURE GRAN PERCENT AUTO 1 % (0-1); LYMPHOCYTES ABSOLUTE AUTO 1.78 K/mm3 (0.84-5.20); LYMPHOCYTES PERCENT AUTO 15 % (21-46); MONOCYTES ABSOLUTE AUTO 0.89 K/mm3 (0.16-1.47); MONOCYTES PERCENT AUTO 7 % (4-13); Mean Corpuscular HGB 27.8 pg (26.0-34.0); Mean Corpuscular HGB Conc 31.5 g/dL (31.5-36.5); Mean Corpuscular Volume 88 fL (80-100); Mean Platelet Volume 11.3 fL (9.1-12.4); NEUTROPHILS ABSOLUTE AUTO 8.94 K/mm3 (1.96-9.15); NEUTROPHILS PERCENT AUTO 74 % (41-73); Platelet Count 328 K/mm3 (150-400); RDW Coefficient Variation 14.6 % (11.7-14.2); RDW Standard Deviation 46.6 fL (35.1-46.3); Red Blood Cell Count 3.52 M/mm3 (4.30-5.90); White Blood Cell Count 12.13 K/mm3 (4.00-11.30)
[2020-05-13 04:21] LABS: Bun/Creatinine Ratio 16.1 (12.0-20.0); Calcium, Blood 8.7 mg/dL (8.5-10.1); Creatinine, Blood 1.92 mg/dL (0.60-1.20); Potassium, Blood 5.3 mmol/L (3.5-5.5)
--- NOTE | 2020-05-13 07:31 | NUR ---
SUMMARY PT VOIDING IMPROVED THIS SHIFT, WITH MINIMAL RETENTION NOTED PER BLADDER SCAN.
[2020-05-13] MEDS ORDERED: PANT20 PO (11:10)
[2020-05-13] MEDS ORDERED: MELATONIN5 M1 PO (11:10)
[2020-05-13] MEDS ORDERED: SULTRIDS PO (11:11)
--- NOTE | 2020-05-13 12:47 | NUR ---
Patient is sitting on EOB and alert. Patient immediately asks me for a bag for him to vomit in and so I retrieve a bag for patient. Patient tells me that he is looking forward to going home and sleeping in his own bed. Patient then tells me that he has to sit on the toilet. I help transfer patient to the chair toilet, and patient asks for some privacy. I will continue to remain available to patient and family.
--- NOTE | 2020-05-13 13:26 | NUR ---
DISCHARGE ESCORTED OUT VIA W/C. AND PT STATE UNDERSTANDING. MEDS CALLED TO [facility] PER PT'S CHOICE. CARE MANAGEMENT LEFT MESSAGE WITH DR SNOW OFFICE RE: F/U APPOINTMENT. ALREADY ARRANGED F/U WITH PCP. HOME HEALTH FOR WOUND CARE.
== END 2020-05-13 13:16 | disposition home or self-care (01) | DRG 240 ==
LOC: ORSCMMR 09:43 → SURS 15:44 → ORSCMMR 16:24 → SURS 16:24
PROVIDERS: Podiatrist; ADMIT Family Medicine
PROC: 0Y6N0ZF Detachment at Left Foot, Partial 5th Ray, Open Approach (ICD-10-PCS; 2020-05-09)
PROC: 0Y6N0ZD Detachment at Left Foot, Partial 4th Ray, Open Approach (ICD-10-PCS; principal; 2020-05-09 13:00)
PROC: 30233N1 Transfusion of Nonautologous Red Blood Cells into Peripheral Vein, Percutaneous Approach (ICD-10-PCS; 2020-05-11)
DX: E11.52 Type 2 diabetes mellitus with diabetic peripheral angiopathy with gangrene (principal); I70.262 Atherosclerosis of native arteries of extremities with gangrene, left leg; I13.0 Hypertensive heart and chronic kidney disease with heart failure and stage 1 through stage 4 chronic kidney disease, or unspecified chronic kidney disease; N17.9 Acute kidney failure, unspecified; D62 Acute posthemorrhagic anemia; E11.40 Type 2 diabetes mellitus with diabetic neuropathy, unspecified; Z79.4 Long term (current) use of insulin; E11.22 Type 2 diabetes mellitus with diabetic chronic kidney disease; N18.3 Chronic kidney disease, stage 3 (moderate); I50.9 Heart failure, unspecified
CPT/HCPCS: 36415; 73630; 80048; 80053; 81001; 82947; 83036; 83735; 85025; 85027; 86850; 86900; 86901; 86923; 87071; 87075; 87077; 87186; 87205; 88305; 88311; 94762; 97162; 97166; A9270-GY; C9113; J0690; J1644; J1940; J2405; J2704; J3010; J7030; J7050; J7060; J7120; P9016; U0002

== ENCOUNTER 2020-05-22 14:53 | Inpatient (IN) | payer OTHER ==
[~2020-05-22] VITALS: Ht 175.3 cm; Wt 101.0 kg
[~2020-05-22 14:53] MED LIST changes: +Aspirin EC81 MG PO; +CITA20 PO; +PANT20 PO; +SULTRIDS PO
--- NOTE | 2020-05-23 14:41 | NUR ---
"DAY SURGERY RN | TO OR BOTH DOCTORS AND CIRCULTOR RN HAVE SEEN PATIENT. REPORT TO FELICITA KAUR. TO OR."
--- NOTE | 2020-05-23 17:38 | NUR ---
SUMMARY PT DROWSY, AT TIMES STATED HE IS SEEING BUGS IN THE ROOM. PT ORIENTED TO PERSON,PLACE AND TIME. LEFT LEG ELEVATED ON PILLOWS. L LEG STUMP SOCK CLEAN, DRY AND INTACT. MEDICATED WITH IV DILAUDID AND SLEEPING AFTER MEDICATED
[2020-05-24 04:43] LABS: BASOPHILS ABSOLUTE AUTO 0.02 K/mm3 (0.00-0.23); BASOPHILS PERCENT AUTO 0 % (0-2); EOSINOPHILS PERCENT AUTO 0 % (0-6); Hematocrit 27.4 % (37.0-53.0); Hemoglobin 8.6 g/dL (13.5-17.5); IMMATURE GRAN ABSOLUTE AUTO 0.07 K/mm3 (0.00-0.10); IMMATURE GRAN PERCENT AUTO 0 % (0-1); LYMPHOCYTES ABSOLUTE AUTO 1.27 K/mm3 (0.84-5.20); LYMPHOCYTES PERCENT AUTO 8 % (21-46); MONOCYTES ABSOLUTE AUTO 0.84 K/mm3 (0.16-1.47); MONOCYTES PERCENT AUTO 5 % (4-13); Mean Corpuscular HGB 28.2 pg (26.0-34.0); Mean Corpuscular HGB Conc 31.4 g/dL (31.5-36.5); Mean Corpuscular Volume 90 fL (80-100); Mean Platelet Volume 10.8 fL (9.1-12.4); NEUTROPHILS ABSOLUTE AUTO 13.43 K/mm3 (1.96-9.15); NEUTROPHILS PERCENT AUTO 86 % (41-73); Platelet Count 352 K/mm3 (150-400); RDW Coefficient Variation 13.9 % (11.7-14.2); RDW Standard Deviation 45.5 fL (35.1-46.3); Red Blood Cell Count 3.05 M/mm3 (4.30-5.90); White Blood Cell Count 15.63 K/mm3 (4.00-11.30)
--- NOTE | 2020-05-24 05:09 | NUR ---
ASSUMED CARE OF PATIENT AT 1915. PATIENT POST OP FROM LEFT BKA. COMPLAINING OF 8/10 PAIN UNRELIEVED BY ROXICODONE. PATIENT STATES THAT THE DILAUDID WORKS BETTER FOR HIS PAIN. POPLITEAL PULSES PALPABLE AND STRONG. UNABLE TO SEE SURGICAL INCISION DUE TO DRESSING IN PLACE. LEG ELEVATED ABOVE HEART, NO COMPLAINTS OF TINGLING OR LOSS OF SENSATION. PATIENT EDUCATED ON KEEPING LEG ELEVATED TO DECREASE SWELLING. NO BLEEDING OR DRAINAGE ASSESSED. VITAL SIGNS STABLE, BED LOWERED TO LOWEST POSITION. CALL LIGHT WITHIN REACH. PATIENT NEEDING STRAIGHT CATH AT 0200. WILL CONTINUE TO MONITOR UNTIL END OF SHIFT.
--- NOTE | 2020-05-24 13:23 | NUR ---
Resumed care of patient. Rounding with surgeon. [place] drain removed and dressing changed.
[2020-05-24] MEDS ORDERED: OXYC5 PO (15:43)
--- NOTE | 2020-05-24 17:26 | NUR ---
Shift summary Pain controlled with 10mg Oxycodone every 4 hours. Patient is a one person assist from the bed to the wheelchair. Patient had 1000cc urine out this shift via straight catherization. Patient to discharge home with home health once cleared by PT. Call light within patient reach.
--- NOTE | 2020-05-25 04:39 | NUR ---
SHIFT SUMMARY PT IS A/O X4. REPOSITIONS SELF WELL IN BED. PAIN MANAGED WITH PO PAIN MED PER ORDERS. LEG ELEVATED. PT HAS BEEN UNABLE TO VOID AND WAS STRAIGHT CATH'D DURING THE NIGHT. NO ACUTE CHANGES.
--- NOTE | 2020-05-25 14:29 | NUR ---
DISCHARGE PT AND SPOUSE EDUCATED ON AND RECEIVED PRINTED DISCHARGE INSTRUCTIONS AND VERBALIZED AN UNDERSTANDING. HARD RX FOR OXYCODONE + EQUIPMENT GIVEN TO PT. IV DC'D. HOME HEALTH ORDER IN. WOUND CARE DRESSINGS SENT WITH PT. STRAIGHT CATH KIT + EDUCATION GIVEN TO SPOUSE IF PT UNABLE TO VOID AT HOME. PT LEFT WITH ALL PERSONAL BELONGINGS INCLUDING PERSONAL W/C + PROSTHESIS.
--- NOTE | 2020-05-25 15:41 | NUR ---
05/25/20 1541 Flori Gonzales VERIFICATIONS: EDIT CHART.
[2020-05-27] MEDS ORDERED: TOUJEO SOL300 UNIT/2 SC (12:28)
[2020-05-27] MEDS ORDERED: ESCI10 PO (12:31)
[2020-05-27] MEDS ORDERED: GABA300 PO (12:38)
[2020-05-27] MEDS ORDERED: OMEP20ER PO (18:18)
[2020-05-30] MEDS ORDERED: BASAGLAR K100 UNIT/1 SL (11:33)
[2020-05-30] MEDS ORDERED: LIPITOR10 MG PO (11:34)
[2020-05-30] MEDS ORDERED: DOCU100 PO (11:35)
[2020-05-30] MEDS ORDERED: Norco 5-325 Ta1 EACH PO (11:36)
[2020-05-30] MEDS ORDERED: HUMALOG KW100 UNIT/1 SC (11:39)
[2020-05-30] MEDS ORDERED: MELATONIN5 M1 (11:40)
[2020-05-30] MEDS ORDERED: ONDA4 (11:41)
[2020-05-30] MEDS ORDERED: SENN187 PO (11:44)
== END 2020-05-25 14:30 | disposition home or self-care (01) | DRG 241 ==
LOC: SURS 05-23 12:56 → PRE IP 05-23 14:30 → SURS 05-23 17:14
PROVIDERS: ADMIT Orthopaedic Surgery
PROC: 0Y6J0Z3 Detachment at Left Lower Leg, Low, Open Approach (ICD-10-PCS; principal; 2020-05-23 14:30)
DX: E11.51 Type 2 diabetes mellitus with diabetic peripheral angiopathy without gangrene (principal); S91.302A Unspecified open wound, left foot, initial encounter; Z79.4 Long term (current) use of insulin; E78.5 Hyperlipidemia, unspecified; Z89.511 Acquired absence of right leg below knee; Z87.891 Personal history of nicotine dependence; I70.209 Unspecified atherosclerosis of native arteries of extremities, unspecified extremity
CPT/HCPCS: 36415; 82947; 85025; 88307; 97110; 97161; 97166; 97530; A9270; A9270-GY; J0690; J1100; J1170; J2250; J2370; J2405; J2704; J3010; J3370; J7120; Q0163

== ENCOUNTER → 2021-05-13 | Outpatient (CLI) | payer OTHER ==
[~2021-05-13] MED LIST changes: +AMOCLA875 PO; +BASAGLAR K100 UNIT/1 SL; +DOCU100 PO; +LIPITOR10 MG PO; +MELATONIN5 M1; +ONDA4; +OXYC5 PO; +SENN187 PO
[2021-05-13 14:54] LABS: Source, Urine Clean Catch
[2021-05-13 16:07] LABS: Appearance, Urine Clear (Clear); Bilirubin, Urine Neg (Neg); Blood, Urine Neg (Neg); Color, Urine Yellow (P-Yellow); Glucose Qualitative, Urine 4+ (Neg); Ketones, Urine Neg (Neg); Leukocyte Esterase, Urine Neg (Neg); Nitrite, Urine Neg (Neg); Protein, Urine 2+ (Neg); Specific Gravity, Urine 1.015 (1.003-1.022); Urobilinogen, Urine NORM (Normal)
[2021-05-13 16:20] LABS: Bacteria Rare /hpf; Red Blood Cells, Urine Not Seen /hpf (0-2); Squamous Epithelial Cells Not Seen /hpf (Few); White Blood Cells, Urine Not Seen /hpf (0-5)
[2021-05-13 16:40] LABS: Creatinine, Urine Random 73.5 mg/dL (27.00-270.00); Protein, Urine Random 48.5 mg/dL (0.0-11.9); Protein/Creat Ratio, Ur Random 0.7
== END | disposition home or self-care (01) ==
LOC: PLD 10:00 → LAB SHORT 10:00
PROVIDERS: Internal Medicine
DX: N18.2 Chronic kidney disease, stage 2 (mild) (principal)
CPT/HCPCS: 81001; 82570; 84156

== ENCOUNTER 2021-06-11 10:00 | Inpatient (IN) | payer OTHER ==
[~2021-06-11] VITALS: Ht 175.3 cm; Wt 89.1 kg
[~2021-06-11 10:00] MED LIST changes: -AMOCLA875 PO
--- NOTE | 2021-06-11 15:03 | NUR ---
History, Chart, Medications and Allergies reviewed before start of procedure. Lungs clear T/O to Auscultation. Pre-Op teaching done. Pt verbalizes understanding. Patient confirms NPO status and agrees with scheduled surgery. HAD PT PLACED IN ROOM 221 DUE TO WAIT TIME AND ILL FEELING.
--- NOTE | 2021-06-11 15:33 | NUR ---
PART OF CHECKLIST COMPLETED, BLANKS LEFT HAS NOT COMPLETED ALL OF PAPERWORK SO FAR. BURT LEGGETT RN IS MONITORING PT IN ROOM 221. Fox RN ALSO NOTIFIED OF HOSPITALIST OF CONSULT TO DISCUSS MEDICAL MANAGEMENT INCLUDING BLOOD SUGAR.
--- NOTE | 2021-06-11 17:57 | NUR ---
SHIFT SUMMARY PATIENT A DIRECT ADMIT TO UNIT PREOP FOR I&D/BKA OF PREEXISTING BKA WITH INFECTED WOUND ON RIGHT LEG. PATIENT ALERT AND ORIENTED. REPORTS PAIN TOLERABLE. RESTING IN BED AND AWAITING SURGERY. VSS. HOSPITALIST CONSULTED TO MANAGE DIABETES AND OTHER MEDICAL CONDITIONS. AT THIS TIME DR EVANS PLANS TO DO SURGERY TOMORROW ON 06/12/21.
[2021-06-12 04:18] LABS: BASOPHILS ABSOLUTE AUTO 0.05 K/mm3 (0.00-0.23); BASOPHILS PERCENT AUTO 1 % (0-2); EOSINOPHILS ABSOLUTE AUTO 0.18 K/mm3 (0.00-0.68); EOSINOPHILS PERCENT AUTO 2 % (0-6); Hematocrit 34.9 % (37.0-53.0); Hemoglobin 11.7 g/dL (13.5-17.5); IMMATURE GRAN ABSOLUTE AUTO 0.05 K/mm3 (0.00-0.10); IMMATURE GRAN PERCENT AUTO 1 % (0-1); LYMPHOCYTES ABSOLUTE AUTO 3.04 K/mm3 (0.84-5.20); LYMPHOCYTES PERCENT AUTO 33 % (21-46); MONOCYTES ABSOLUTE AUTO 0.86 K/mm3 (0.16-1.47); MONOCYTES PERCENT AUTO 9 % (4-13); Mean Corpuscular HGB 31.2 pg (26.0-34.0); Mean Corpuscular HGB Conc 33.5 g/dL (31.5-36.5); Mean Corpuscular Volume 93 fL (80-100); NEUTROPHILS ABSOLUTE AUTO 5.16 K/mm3 (1.96-9.15); NEUTROPHILS PERCENT AUTO 55 % (41-73); Platelet Count 215 K/mm3 (150-400); RDW Coefficient Variation 12.3 % (11.7-14.2); RDW Standard Deviation 42.4 fL (35.1-46.3); Red Blood Cell Count 3.75 M/mm3 (4.30-5.90); White Blood Cell Count 9.34 K/mm3 (4.00-11.30)
[2021-06-12 04:38] LABS: Bun/Creatinine Ratio 12.2 (12.0-20.0); Calcium, Blood 8.7 mg/dL (8.5-10.1); Creatinine, Blood 3.04 mg/dL (0.60-1.20)
--- NOTE | 2021-06-12 04:56 | NUR ---
SHIFT SUMMARY PT AOX4. PT HAS NOT BEEN C/O OF PAIN. HE HAS BEEN COMFORTABLE IN BED AND SLEPT MOST OF MY SHIFT. HE TRANSFER HIMSELF FROM BED TO W/C TO TOILET. CREATININE IS HIGH 3.04 AND GFR IS LOW AT 21 THIS MORNING. LR FLUIDS INFUSING AT 100 ML. PT VOIDING 500ML AND 1 UNMEASURED VOID. PT HAD A 1 BM LAST NIGHT WELL. VSS. CBG HAS BEEN UNDER 200 T/O SHIFT. BLOOD GLUCOSE FROM LAB AT 164 THIS MORNING. PT'S RIGHT STUMP/WOUND IS OPEN TO AIR AT THIS TIME. PLAN FOR DR. EVANS TO DO SURGERY TODAY. HE IS NPO AFTER MIDNIGHT. CALL LIGHT WITHIN REACH. WILL PROVIDE REPORT TO ONCOMING AM NURSE.
--- NOTE | 2021-06-12 12:11 | NUR ---
TO DAY SURGERY VIA BED
--- NOTE | 2021-06-12 12:24 | NUR ---
THE PATIENT WAS BROUGHT TO D/S FOR HIS PROCEDURE. Lungs clear T/O to Auscultation. History, Chart, Medications and Allergies reviewed before start of procedure.Patient confirms NPO status and agrees with scheduled surgery. Pre-Op teaching done. Pt verbalizes understanding.
--- NOTE | 2021-06-12 14:34 | NUR ---
06/12/21 1434 Jeny Oconnor BETA CIARA LAST ADMINISTERED 06/11/21 AT 2100.
--- NOTE | 2021-06-12 14:38 | NUR ---
CONFUSED TO NAME IS ABLE TO TELL ME HE IS IN [facility]
--- NOTE | 2021-06-12 14:49 | NUR ---
LAYING QUIETLY WITH EYES CLOSED RESP E/U WAKES EASILY TO VERBAL STIMULI OFFERS NO COMPLAINT OF PAIN AT THIS TIME
--- NOTE | 2021-06-12 14:54 | NUR ---
PT WITH EYES CLOSED RESP E/U LIGHT SNORING RESP WHEN I TOUCH AND TALK TO HIM HIM HE WAKES EASILY VERY DROWSY THEN RIGHT BACK TO EYES CLOSED RESP E/U
--- NOTE | 2021-06-12 15:09 | NUR ---
REPORT FROM HARRIET WOLFE RN
--- NOTE | 2021-06-12 15:12 | NUR ---
ASKED PT HOW HE IS DOING AND HE RESPONDS " GREAT" GIVES ME A LITTLE SMILE
--- NOTE | 2021-06-12 15:29 | NUR ---
1530 ARRIVED TO SURGICAL UNIT. ALERT AND ORIENTED X4. PAIN LEVEL 10/10 AT THIS TIME. DRESSING TO RLE CDI, EXTREMITY WARM WITH PAINFUL SENSATION. CATHY CALLED TO NOTIFY THAT PATIENT HAS RETURNED TO SURGICAL FLOOR. VITALS RECORDED.
--- NOTE | 2021-06-12 16:54 | NUR ---
ANTIBIOTICS ADJUSTED FOR RENAL DOSING, PER PHARM.
--- NOTE | 2021-06-12 18:02 | NUR ---
PATIENT REMAINS ALERT AND DRESSING CDI. MEDICATED FOR PAIN, CURRENT PAIN LEVEL 9/10. AT BEDSIDE. TOLERATING DINNER, ATE 100% 240ML
[2021-06-13 03:56] LABS: BASOPHILS ABSOLUTE AUTO 0.03 K/mm3 (0.00-0.23); BASOPHILS PERCENT AUTO 0 % (0-2); EOSINOPHILS PERCENT AUTO 0 % (0-6); Hemoglobin 11.8 g/dL (13.5-17.5); IMMATURE GRAN ABSOLUTE AUTO 0.05 K/mm3 (0.00-0.10); IMMATURE GRAN PERCENT AUTO 0 % (0-1); LYMPHOCYTES ABSOLUTE AUTO 1.71 K/mm3 (0.84-5.20); LYMPHOCYTES PERCENT AUTO 12 % (21-46); MONOCYTES ABSOLUTE AUTO 0.83 K/mm3 (0.16-1.47); MONOCYTES PERCENT AUTO 6 % (4-13); Mean Corpuscular HGB 30.8 pg (26.0-34.0); Mean Corpuscular HGB Conc 33.7 g/dL (31.5-36.5); Mean Corpuscular Volume 91 fL (80-100); Mean Platelet Volume 12.2 fL (9.1-12.4); NEUTROPHILS ABSOLUTE AUTO 11.28 K/mm3 (1.96-9.15); NEUTROPHILS PERCENT AUTO 81 % (41-73); Platelet Count 226 K/mm3 (150-400); RDW Standard Deviation 40.2 fL (35.1-46.3); Red Blood Cell Count 3.83 M/mm3 (4.30-5.90)
--- NOTE | 2021-06-13 04:10 | NUR ---
SHIFT SUMMARY NO ACUTE CHANGES THIS SHIFT. PT HAS RESTED WELL T/O NIGHT. 2 NORCO FOR PAIN PRN. R STUMP SOCK REMAINS CDI AND R LEG ELEVATED ON PILLOWS. MINOR PATENT AND DRAINING. IVF INFUSING PER ORDERS. PT ABLE TO REPOSITION SELF IN BED INDEP. USES CALL LIGHT APPROPRIATELY.
[2021-06-13 04:20] LABS: Anion Gap 5 mmol/L (6-16); Blood Urea Nitrogen 34 mg/dL (8-24); Bun/Creatinine Ratio 18.7 (12.0-20.0); CO2, Blood 26 mmol/L (21-32); Calcium, Blood 8.5 mg/dL (8.5-10.1); Chloride, Blood 103 mmol/L (98-108); Creatinine, Blood 1.82 mg/dL (0.60-1.20); Glomerular Filtration Rate 37 (60-); Glucose, Blood 246 mg/dL (70-99); Potassium, Blood 4.9 mmol/L (3.5-5.5); Sodium, Blood 134 mmol/L (136-145)
--- NOTE | 2021-06-13 18:43 | NUR ---
SHIFT SUMMARY PT IS POD#1 FROM R BKA REVISION WITH DR. EVANS. HE IS ALTER AND ORIENTED ALTHOUGH HAS SOME DIFFICULTY UNDERSTANDING MEDICAL/ NURSING CARE. PT WAS GIVEN FREQUENT REASSURANCE AND EDUCATION. PT WORKED WITH OT TODAY. PAIN MANAGED WITH NORCO. VSS. REPORT GIVEN TO JOVON RN.
[2021-06-14 03:51] LABS: BASOPHILS ABSOLUTE AUTO 0.06 K/mm3 (0.00-0.23); BASOPHILS PERCENT AUTO 1 % (0-2); EOSINOPHILS PERCENT AUTO 4 % (0-6); Hematocrit 34.2 % (37.0-53.0); Hemoglobin 11.4 g/dL (13.5-17.5); IMMATURE GRAN ABSOLUTE AUTO 0.02 K/mm3 (0.00-0.10); IMMATURE GRAN PERCENT AUTO 0 % (0-1); LYMPHOCYTES ABSOLUTE AUTO 1.93 K/mm3 (0.84-5.20); LYMPHOCYTES PERCENT AUTO 22 % (21-46); MONOCYTES ABSOLUTE AUTO 0.79 K/mm3 (0.16-1.47); MONOCYTES PERCENT AUTO 9 % (4-13); Mean Corpuscular HGB 31.6 pg (26.0-34.0); Mean Corpuscular HGB Conc 33.3 g/dL (31.5-36.5); Mean Corpuscular Volume 95 fL (80-100); Mean Platelet Volume 12.3 fL (9.1-12.4); NEUTROPHILS ABSOLUTE AUTO 5.56 K/mm3 (1.96-9.15); NEUTROPHILS PERCENT AUTO 64 % (41-73); Platelet Count 195 K/mm3 (150-400); RDW Standard Deviation 41.9 fL (35.1-46.3); Red Blood Cell Count 3.61 M/mm3 (4.30-5.90); White Blood Cell Count 8.66 K/mm3 (4.00-11.30)
[2021-06-14 04:16] LABS: Anion Gap 6 mmol/L (6-16); Blood Urea Nitrogen 24 mg/dL (8-24); Bun/Creatinine Ratio 19.4 (12.0-20.0); CO2, Blood 25 mmol/L (21-32); Calcium, Blood 8.6 mg/dL (8.5-10.1); Chloride, Blood 105 mmol/L (98-108); Creatinine, Blood 1.24 mg/dL (0.60-1.20); Glomerular Filtration Rate 58 (60-); Glucose, Blood 203 mg/dL (70-99); Potassium, Blood 4.3 mmol/L (3.5-5.5); Sodium, Blood 136 mmol/L (136-145); Vancomycin, Random 13.6 ug/mL
--- NOTE | 2021-06-14 05:39 | NUR ---
POD 2 S/P R BKA REVISION. PT VSS T/O NIGHT, DRESSING CDI. STUMP SOCK IN PLACE, RLE ELEVATED. PAIN MGD W/2 NORCO W/REP RELIEF. DEEPAK BEASLEY PALE YELLOW URINE. PT REPOSITIONING SELF IN BED, IS USING CALL LIGHT FOR ASSISTANCE. IVF AND ABX CONT PER ORDERS.
--- NOTE | 2021-06-14 08:37 | NUR ---
PT ANXIOUS TO GO HOME, REPORTS PAIN IS TOLERABLE WITH PO PAIN MEDS, DENIES ANY PAIN AT THIS TIME, EATING BREAKFAST, DSG C/D/I, CONT. TO MONITOR FOR ANY CHANGES.
--- NOTE | 2021-06-14 09:53 | NUR ---
RESTING IN BED, DENIES ANY PAIN AT THIS TIME.
--- NOTE | 2021-06-14 12:22 | NUR ---
DR. SUTHERLAND NOT AVAILABLE UNTIL 06/22 PER CONSULT LINE, [facility] ID CONSULT LINE CONTACTED, DR. EVANS' CONTACT INFO PROVIDED, DR. EVANS AND PT NOTIFIED.
--- NOTE | 2021-06-14 17:26 | NUR ---
SUMMARY REPORTS HAVING ADEQUATE PAIN CONTROL WITH 2 NORCO, RLE DSG CHANGED BY DR. EVANS EARLIER TODAY, TRANSFERS SELF TO BSC, TRAPEZE PLACED ON BED, MINOR CATH DC'D TODAY, PT VOIDING IN URINAL AND BSC, PT HAD NAUSEA AND 200CC EMESIS AFTER GETTING BACK IN BED FROM BSC, ZOFRAN GIVEN, REPORTS FEELING BETTER AFTER VOMITTING, STATES HE HAS EPISODES OF N/V AT HOME ALSO, NOW RESTING IN BED W/ RLE ELEVATED ON PILLOWS.
[2021-06-15 04:16] LABS: Vancomycin, Random 13.5 ug/mL
--- NOTE | 2021-06-15 05:06 | NUR ---
POD 4 S/P R BKA REVISION. DRESSING CDI, PT DENIES CHANGES IN SENSATION. PAIN MGD PER EMAR W/REP RELIEF. PT TX SELF TO BSC W/MINIMAL ASSIST. PT HAD EPISODE OF NAUSEA, NO EMESIS, PT REP NAUSEA FEELING CHRONIC FOR SOMETIME. PT HAD NO BM THIS SHFIT, DECLINED PRN BOWEL CARE. PT IS VOIDING URINE W/O DIFFICILTY. PT EAGER TO D/C HOME TODAY. PLAN FOR RECEPTIONIST SECRETARY ABX PER ID RECOMMENDATIONS.
[2021-06-15] MEDS ORDERED: Norco 5-325 Ta1 EACH PO (11:51)
[2021-06-15] MEDS ORDERED: AMOCLA875 PO (11:51)
--- NOTE | 2021-06-15 12:43 | NUR ---
SHIFT SUMMARY: DAY OF D/C. PATIENT'S IV DISCONTINUED AT 1230. SENT TO [facility] TO PRODUCTION EDITOR DISCHARGE PRESCRIPTIONS AT 1220. PATIENT IS HAPPY TO BE GOING HOME. PAIN IS MANAGED WITH MEDICATIONS. WAITING FOR TO RETURN TO GIVE DISCHARGE TEACHING.
--- NOTE | 2021-06-15 14:01 | NUR ---
DISCHARGE SUMMARY: MANAGER STRATEGIC DEVELOPMENT BEGAN D/C EDUCATION WITH RN PRESENT, PT WAS ANXIOUS TO LEAVE WAS WAITING OUTSIDE. GAVE UNIT AND DR CONTACT INFORMATION AND MEDICATION EDUCATION. PATIENT DECLINED FURTHER EDUCATION AND STATED HE "HAD BEEN THROUGH ALL THIS BEFORE" AND ALREADY KNEW EVERYTHING. PATIENT RQSTED AND SIGNED D/C FORM AND WAS TRANSPORTED BY WHEELCHAIR TO HIS VEHICLE. PATIENT CALMED AND VISIBLY RELAXED ONCE IN THE HALLWAY. PATIENT WAS COOPERATIVE AND STABLE THROUGHTOUT SHIFT. DISCHARGED AT 1400.
== END 2021-06-15 14:07 | disposition home or self-care (01) | DRG 493 ==
LOC: SURS 11:46
PROVIDERS: Internal Medicine; ADMIT Orthopaedic Surgery
PROC: 0QBG0ZZ Excision of Right Tibia, Open Approach (ICD-10-PCS; principal; 2021-06-12 12:30)
DX: T87.43 Infection of amputation stump, right lower extremity (principal); L03.115 Cellulitis of right lower limb; N17.9 Acute kidney failure, unspecified; I50.32 Chronic diastolic (congestive) heart failure; S81.801A Unspecified open wound, right lower leg, initial encounter; E11.40 Type 2 diabetes mellitus with diabetic neuropathy, unspecified; E11.22 Type 2 diabetes mellitus with diabetic chronic kidney disease; N18.30 Chronic kidney disease, stage 3 unspecified; E11.51 Type 2 diabetes mellitus with diabetic peripheral angiopathy without gangrene; Z20.822 Contact with and (suspected) exposure to COVID-19; H40.9 Unspecified glaucoma; I25.10 Atherosclerotic heart disease of native coronary artery without angina pectoris; B95.61 Methicillin susceptible Staphylococcus aureus infection as the cause of diseases classified elsewhere; X58.XXXA Exposure to other specified factors, initial encounter
CPT/HCPCS: 36415; 51702; 76770; 80048; 80202; 82947; 85025; 87071; 87075; 87077; 87147; 87186; 87205; 88307; 88311; 97161; 97530; A9270; J0690; J1100; J2250; J2370; J2405; J2704; J3010; J3370; J7030; J7050; J7120; U0004

== ENCOUNTER 2021-09-22 13:30 | Inpatient (IN) | payer OTHER ==
[~2021-09-22] VITALS: Ht 157.5 cm; Wt 86.0 kg
[~2021-09-22 13:30] MED LIST changes: +AMOCLA875 PO; -MELATONIN5 M1
[2021-09-22 13:55] LABS: Calcium, Ionized (POC) 1.25 mmol/L (1.10-1.46); Chloride (POC) 99 mmol/L (98-108); Creatinine (POC) 2.4 mg/dL (0.8-1.3); Glucose (ISTAT POC) 289 mg/dL (70-99); Hemoglobin (POC) 5.4 g/dL (13.5-17.5); Potassium (POC) 5.1 mmol/L (3.5-5.5); Sodium (POC) 131 mmol/L (135-148); Total CO2 (POC) 21 mmol/L (21-32)
[2021-09-22 13:59] LABS: BASOPHILS ABSOLUTE AUTO 0.06 K/mm3 (0.00-0.23); BASOPHILS PERCENT AUTO 0 % (0-2); EOSINOPHILS PERCENT AUTO 1 % (0-6); IMMATURE GRAN ABSOLUTE AUTO 0.26 K/mm3 (0.00-0.10); IMMATURE GRAN PERCENT AUTO 2 % (0-1); LYMPHOCYTES ABSOLUTE AUTO 3.79 K/mm3 (0.84-5.20); LYMPHOCYTES PERCENT AUTO 25 % (21-46); MONOCYTES ABSOLUTE AUTO 1.38 K/mm3 (0.16-1.47); MONOCYTES PERCENT AUTO 9 % (4-13); Mean Corpuscular HGB 31.8 pg (26.0-34.0); Mean Corpuscular HGB Conc 31.8 g/dL (31.5-36.5); Mean Corpuscular Volume 100 fL (80-100); NEUTROPHILS ABSOLUTE AUTO 9.24 K/mm3 (1.96-9.15); NEUTROPHILS PERCENT AUTO 62 % (41-73); NRBC ABSOLUTE 0.16 K/mm3 (0.00-0.02); NRBC Auto 1.1 /100 WBC (0.0-0.2); Platelet Count 224 K/mm3 (150-400); RDW Coefficient Variation 15.9 % (11.7-14.2); RDW Standard Deviation 54.1 fL (35.1-46.3); Red Blood Cell Count 1.76 M/mm3 (4.30-5.90); White Blood Cell Count 14.93 K/mm3 (4.00-11.30)
[2021-09-22 14:04] LABS: Mean Platelet Volume 13.6 fL (9.1-12.4)
[2021-09-22 14:05] LABS: Hematocrit 17.6 % (37.0-53.0); Hemoglobin 5.6 g/dL (13.5-17.5)
[2021-09-22] MEDS ORDERED: SITA50T2 PO (14:24)
[2021-09-22] MEDS ORDERED: CARVEDILOL12.5 MG PO (14:24)
[2021-09-22] MEDS ORDERED: DORZOLAMIDE-TIM10 ML BOTHEYES (14:25)
[2021-09-22] MEDS ORDERED: LISI20 PO (14:25)
[2021-09-22] MEDS ORDERED: LIPITOR80 MG PO (14:25)
[2021-09-22] MEDS ORDERED: TOUJEO SOL300 UNIT/2 SC ×2 (14:25→14:36)
[2021-09-22] MEDS ORDERED: XARELTO20 MG PO (14:26)
[2021-09-22] MEDS ORDERED: ESCI20 PO (14:26)
[2021-09-22 14:27] LABS: Alanine Aminotransfer (ALT/SGP 20 U/L (12-78); Albumin, Blood 2.5 g/dL (3.4-5.0); Albumin/Globulin Ratio 0.6 (0.8-1.8); Alk Phos 62 U/L (50-136); Anion Gap 9 mmol/L (6-16); Aspartate Aminotrans (AST/SGOT 12 U/L (12-37); Beta-hydroxybutyrate 2.2 mg/dL (0.2-2.8); Bilirubin, Total 0.2 mg/dL (0.1-1.0); Blood Urea Nitrogen 61 mg/dL (8-24); Bun/Creatinine Ratio 28.8 (12.0-20.0); CO2, Blood 23 mmol/L (21-32); Calcium, Blood 9.1 mg/dL (8.5-10.1); Chloride, Blood 101 mmol/L (98-108); Creatinine, Blood 2.12 mg/dL (0.60-1.20); Globulin, Blood 4.1 g/dL (2.2-4.0); Glomerular Filtration Rate 31 (60-); Glucose, Blood 283 mg/dL (70-99); Potassium, Blood 5.1 mmol/L (3.5-5.5); Sodium, Blood 133 mmol/L (136-145); Total Protein, Blood 6.6 g/dL (6.4-8.2); Troponin I <0.015 ng/mL (0.000-0.040)
[2021-09-22] MEDS ORDERED: TRULICITY1.5 MG/0.1 SC (14:28)
[2021-09-22 14:54] LABS: International Normalized Ratio 1.13; Prothrombin Time Results 11.8 Sec (9.7-11.5)
[2021-09-22 15:13] LABS: SARS-Cov-2 (COVID-19) PCR, MMC NEGATIVE (NEGATIVE)
--- NOTE | 2021-09-22 18:19 | NUR ---
ICU ADMIT PT ARRIVES TO ICU FROM ER AT 1725 FOR GI BLEED. REPORT FROM LIZ CASTRO RN. PT ARRIVES A&OX 3. FOLLOWS COMMANDS. PLEASANT. DENIES COMPLAINTS. STATES HE IS FEELING MUCH BETTER. REPORTS DARK TARRY STOOLS X 4 DAYS. DENIES N/V, DAUGHTER IN ER REPORTED N/V AND AMS. PT DENIES ABD PAIN. ABD ROUND, SOFT, NON TENDER. BT X 4. PT NPO. PRBC TRANSFUSING, 2ND UNIT STARTED. PT PALE, COOL. SR, RATE 60'S. BP STABLE. PT REPORTS PREVIOUS BLOOD TRANSFUSIONS, STATES UNRELATED TO GI, POST SX. MINOR PATENT, DRAINING CLEAR YELLOW URINE TO GRAVITY. BILATERAL BKA, WELL HEALED. NO SKIN ABNORMALITIES NOTED. PIV X 2. WILL CONTINUE TO MONITOR UNTIL REPORT TO ONCOMING NURSE.
--- NOTE | 2021-09-22 20:01 | NUR ---
ASSUMPTION OF CARE PT RECEIVING UNIT OF PRBCS AT 102ML/HR AND PROTONIX. PT IS ALERT AND ORIENTED. DENIES PAIN OR DISCOMFORT. BOWEL TONES ARE ACTIVE. MINOR REMAINS IN PLACE DRAINING YELLOW/CLEAR URINE. SEE SHIFT ASSESSMENT.
[2021-09-22 22:17] LABS: Hematocrit 22.5 % (37.0-53.0); Hemoglobin 7.4 g/dL (13.5-17.5)
[2021-09-23 04:13] LABS: BASOPHILS ABSOLUTE AUTO 0.05 K/mm3 (0.00-0.23); BASOPHILS PERCENT AUTO 0 % (0-2); EOSINOPHILS ABSOLUTE AUTO 0.23 K/mm3 (0.00-0.68); EOSINOPHILS PERCENT AUTO 2 % (0-6); Hematocrit 25.4 % (37.0-53.0); Hemoglobin 8.5 g/dL (13.5-17.5); IMMATURE GRAN ABSOLUTE AUTO 0.15 K/mm3 (0.00-0.10); IMMATURE GRAN PERCENT AUTO 1 % (0-1); LYMPHOCYTES ABSOLUTE AUTO 2.41 K/mm3 (0.84-5.20); LYMPHOCYTES PERCENT AUTO 19 % (21-46); MONOCYTES PERCENT AUTO 9 % (4-13); Mean Corpuscular HGB 29.5 pg (26.0-34.0); Mean Corpuscular HGB Conc 33.5 g/dL (31.5-36.5); Mean Corpuscular Volume 88 fL (80-100); Mean Platelet Volume 12.8 fL (9.1-12.4); NEUTROPHILS ABSOLUTE AUTO 8.83 K/mm3 (1.96-9.15); NEUTROPHILS PERCENT AUTO 69 % (41-73); NRBC ABSOLUTE 0.12 K/mm3 (0.00-0.02); NRBC Auto 0.9 /100 WBC (0.0-0.2); Platelet Count 182 K/mm3 (150-400); RDW Coefficient Variation 18.4 % (11.7-14.2); RDW Standard Deviation 57.6 fL (35.1-46.3); Red Blood Cell Count 2.88 M/mm3 (4.30-5.90); White Blood Cell Count 12.77 K/mm3 (4.00-11.30)
[2021-09-23 04:34] LABS: Albumin, Blood 2.4 g/dL (3.4-5.0); Albumin/Globulin Ratio 0.6 (0.8-1.8); Bilirubin, Total 1.2 mg/dL (0.1-1.0); Bun/Creatinine Ratio 28.9 (12.0-20.0); Calcium, Blood 8.8 mg/dL (8.5-10.1); Creatinine, Blood 1.9 mg/dL (0.60-1.20); Globulin, Blood 3.7 g/dL (2.2-4.0); Potassium, Blood 4.2 mmol/L (3.5-5.5); Total Protein, Blood 6.1 g/dL (6.4-8.2)
--- NOTE | 2021-09-23 06:41 | NUR ---
SHIFT SUMMARY PT REMAINS ALERT AND ORIENTED. PT RECEIVED A TOTAL OF 3UNITS PRBCS AND AM LABS SHOW HGB 8.5. PT DENIES PAIN OR DISCOMFORT. PT SLEPT THROUGH MOST OF NIGHT. PT PLACED ON 1L NC WHILE SLEEPING. MINOR REMAINS IN PLACE WITH SHIFT OUTPUT OF 1725ML. PT STS HE IS FEELING "BETTER". PT MORE TALKATIVE AND INTERACTIVE THIS AM. WILL REPORT TO ONCOMING RN.
--- NOTE | 2021-09-23 08:32 | NUR ---
ASSUMED CARE REPORT FROM DEUCE KAUR AT 0700. PT RESTING IN BED. A&O X 3. FOLLOWS COMMANDS. DENIES COMPLAINTS. PT P/W/D. NSR, RATE 60'S. BP STABLE. LUNGS CLEAR. ABD ROUND, SOFT, NON TENDER. BT X 4. MAEW. ABLE TO SHIFT AND REPOSITION SELF IN BED. NS INFUSING AT 75 ML/HR, PROTONIX 10 MG/HR. MINOR PATENT, DRAINING CLEAR YELLOW URINE TO GRAVITY. CLEAR LIQUIDS, PLAN OR EGD THIS AFTERNOON. CALL LIGHT IN REACH. WILL CONTINUE TO MONITOR.
[2021-09-23 11:01] LABS: Hematocrit 23.7 % (37.0-53.0); Hemoglobin 7.9 g/dL (13.5-17.5)
--- NOTE | 2021-09-23 13:18 | NUR ---
PT PREOPED IN ICU. History, Chart, Medications and Allergies reviewed before start of procedure. Lungs clear T/O to Auscultation. Patient confirms NPO status and agrees with scheduled surgery. Pre-Op teaching done. Pt verbalizes understanding.
--- NOTE | 2021-09-23 15:59 | NUR ---
09/23/21 1559 REG CEJA History, Chart, Medications and Allergies reviewed before start of procedure. Patient confirms NPO status and agrees with scheduled surgery. 3-LEAD EKG REVIEWED WITH PHYSICIAN PRIOR TO START OF PROCEDURE. MONITOR INTACT WITH CONTINUOUS PULSE OXIMETRY AND INTERMITTENT BP. PATIENT DETERMINED TO BE ASA APPROPRIATE FOR PROPOFOL SEDATION PRIOR TO START OF PROCEDURE BY DR. MCALLISTER. O2 VIA N/C INTACT THROUGHOUT SEDATION/PROCEDURE.
[2021-09-23 16:31] LABS: Hematocrit 23.2 % (37.0-53.0); Hemoglobin 7.7 g/dL (13.5-17.5)
--- NOTE | 2021-09-23 17:38 | NUR ---
SHIFT SUMMARY PT STATUS CHANGED TO MED s TELE THIS SHIFT. ECG DONE, NO INTERVENTIONS. PLAN FOR COLONSCOPY TOMORROW. PT REMAINS IN CLEAR LIQUIDS. 3 BLACK BMS THIS SHIFT. PT DENIES ABD PAIN, N/V. ABD ROUND, SOFT, NON TENDER. BT X 4. PT P/W/D. VSS. PLAN TO REPEAT H&H AT 2100. TRANSFUSE IF < 7.5. WILL CONTINUE TO MONITOR UNTIL REPORT TO ONCOMING NURSE.
--- NOTE | 2021-09-23 19:50 | NUR ---
ASSUMED CARE REPORT RECEIVED FROM DAY SHIFT RN. PT IN BED, ALERT AND ORIENTED, NO DISTRESS NOTED. PT PLEASANT. SEE SHIFT ASSESSMENT. WILL CONTINUE TO MONITOR. SAFETY MEASURES IN PLACE.
[2021-09-23 21:17] LABS: Hematocrit 24.3 % (37.0-53.0); Hemoglobin 8.1 g/dL (13.5-17.5)
[2021-09-24 06:37] LABS: Hemoglobin 8.3 g/dL (13.5-17.5)
[2021-09-24 06:45] LABS: Albumin, Blood 2.4 g/dL (3.4-5.0); Anion Gap 4 mmol/L (6-16); Blood Urea Nitrogen 34 mg/dL (8-24); Bun/Creatinine Ratio 23.9 (12.0-20.0); CO2, Blood 25 mmol/L (21-32); Calcium, Blood 8.3 mg/dL (8.5-10.1); Chloride, Blood 110 mmol/L (98-108); Creatinine, Blood 1.42 mg/dL (0.60-1.20); Glomerular Filtration Rate 49 (60-); Glucose, Blood 113 mg/dL (70-99); Phosphorus, Blood 3.7 mg/dL (2.5-4.9); Potassium, Blood 4.3 mmol/L (3.5-5.5); Sodium, Blood 139 mmol/L (136-145)
--- NOTE | 2021-09-24 08:45 | NUR ---
ASSUMED CARE REPORT FROM FERMIN KAUR AT 0700. PT RESTING IN BED. A&O X3. LUNGS CLEAR. ABD ROUND, SOFT, NON TENDER. BT X 4. RECTAL TUBE IN PLACE. DRAINING LIQUID BROWN STOOL. MINOR PATENT, DRAINING TO GRAVITY. CLEAR YELLOW URINE. VSS. CLEAR LIQUID DIET. PLAN FOR GOLYTELY AT 0900. PT TOLERATED 0600 DOSE WELL. CALL LIGHT IN REACH. WILL CONTINUE TO MONITOR.
--- NOTE | 2021-09-24 13:35 | NUR ---
PT RECENTLY TO DAYSURGERY BY NILDA. PT A/O. PT REPORTED TO BE HAVING LIQUID STOOL. Patient confirms NPO status and agrees with scheduled surgery. Lungs clear T/O to Auscultation. Pre-Op teaching done. Pt verbalizes understanding.
--- NOTE | 2021-09-24 14:07 | NUR ---
PT TO OR sonny MONSALVE. NO ACUTE CHANGES. PT TO TRANSFER TO 309 p PROCEDURE. ALL BELONGINGS SENT TO ROOM.
--- NOTE | 2021-09-24 14:16 | NUR ---
09/24/21 1415 Pako Lechuga History, Chart, Medications and Allergies reviewed before start of procedure. Patient confirms NPO status and agrees with scheduled surgery. 3-LEAD EKG REVIEWED WITH PHYSICIAN PRIOR TO START OF PROCEDURE. MONITOR INTACT WITH CONTINUOUS PULSE OXIMETRY AND INTERMITTENT BP. PATIENT DETERMINED TO BE ASA APPROPRIATE FOR PROPOFOL SEDATION PRIOR TO START OF PROCEDURE BY DR. MCALLISTER.
--- NOTE | 2021-09-24 17:02 | NUR ---
ARRIVES FROM DAY SURGERY ABOUT 1620. ALERT. STILL SOME EFFECTS FROM ANESTHESIA WITH REGARDS TO MOVEMENT. LUNGS CLEAR. IV'S X2 PATENT. VSS. DAUGHTER IN ROOM WHEN COMES UP TO REVIEW PROCEDURE. DENIES NAUSEA OR PAIN AT THIS TIME. BILATERAL BELOW THE KNEE AMPUTATIONS THAT ARE OLD SURGERIES. [facility]
--- NOTE | 2021-09-25 03:17 | NUR ---
PT REPORTS FEELING BETTER AFTER OXYCODONE DOSE. IVF PATENTLY INFUSING. NO N/V. DENIES ABD PAIN AT THIS TIME. VSS. CALL LIGHT WITHIN REACH. WILL CONTINUE TO MONITOR.
--- NOTE | 2021-09-25 03:37 | NUR ---
PT IN BED RESTING. DENIES ANY DISCOMFORT. VSS. IVF PATENTLY INFUSING. MINOR DRAINING CLEAR YELLOW URINE TO GRAVITY. MEDS GIVEN PER MAR. SLEPT WELL THROUGH THE NIGHT. NO COMPLAINTS VOICED. CALL LIGHT WITHIN REACH. WILL CONTINUE TO MONITOR.
[2021-09-25 05:25] LABS: BASOPHILS ABSOLUTE AUTO 0.04 K/mm3 (0.00-0.23); BASOPHILS PERCENT AUTO 1 % (0-2); EOSINOPHILS ABSOLUTE AUTO 0.27 K/mm3 (0.00-0.68); EOSINOPHILS PERCENT AUTO 3 % (0-6); Hematocrit 26.3 % (37.0-53.0); Hemoglobin 8.6 g/dL (13.5-17.5); IMMATURE GRAN ABSOLUTE AUTO 0.05 K/mm3 (0.00-0.10); IMMATURE GRAN PERCENT AUTO 1 % (0-1); LYMPHOCYTES ABSOLUTE AUTO 1.69 K/mm3 (0.84-5.20); LYMPHOCYTES PERCENT AUTO 20 % (21-46); MONOCYTES ABSOLUTE AUTO 0.66 K/mm3 (0.16-1.47); MONOCYTES PERCENT AUTO 8 % (4-13); Mean Corpuscular HGB 29.2 pg (26.0-34.0); Mean Corpuscular HGB Conc 32.7 g/dL (31.5-36.5); Mean Corpuscular Volume 89 fL (80-100); NEUTROPHILS ABSOLUTE AUTO 5.59 K/mm3 (1.96-9.15); NEUTROPHILS PERCENT AUTO 67 % (41-73); Platelet Count 184 K/mm3 (150-400); RDW Coefficient Variation 17.8 % (11.7-14.2); RDW Standard Deviation 56.6 fL (35.1-46.3); Red Blood Cell Count 2.95 M/mm3 (4.30-5.90)
[2021-09-25 05:55] LABS: Albumin, Blood 2.5 g/dL (3.4-5.0); Anion Gap 5 mmol/L (6-16); Blood Urea Nitrogen 16 mg/dL (8-24); CO2, Blood 24 mmol/L (21-32); Calcium, Blood 8.3 mg/dL (8.5-10.1); Chloride, Blood 110 mmol/L (98-108); Creatinine, Blood 1.07 mg/dL (0.60-1.20); Glomerular Filtration Rate >60 (60-); Glucose, Blood 97 mg/dL (70-99); Magnesium, Blood 1.7 mg/dL (1.6-2.4); Sodium, Blood 139 mmol/L (136-145)
--- NOTE | 2021-09-25 11:50 | NUR ---
PT VOIDED 35ML OF CLEAR NIKO URINE, NO FOUL ODOR NOTED. PT AND STAFF ACCOMPANIED VIA W/C AND D/C'D NOW. NO C/O PAIN OR DISCOMFORT.
== END 2021-09-25 12:08 | disposition home or self-care (01) | DRG 377 ==
LOC: ER 13:30 → ICUW 16:20 → MEDS 16:20 → ICUE 16:20 → MEDS 09-24 15:57
PROVIDERS: Emergency Medicine; Internal Medicine; Nurse Practitioner Acute Care; ADMIT Internal Medicine
PROC: 30233N1 Transfusion of Nonautologous Red Blood Cells into Peripheral Vein, Percutaneous Approach (ICD-10-PCS; principal; 2021-09-22)
PROC: 0DJ08ZZ Inspection of Upper Intestinal Tract, Via Natural or Artificial Opening Endoscopic (ICD-10-PCS; 2021-09-23)
PROC: 0DBK8ZX Excision of Ascending Colon, Via Natural or Artificial Opening Endoscopic, Diagnostic (ICD-10-PCS; 2021-09-24)
PROC: 0DBL8ZX Excision of Transverse Colon, Via Natural or Artificial Opening Endoscopic, Diagnostic (ICD-10-PCS; 2021-09-24)
PROC: 0DBN8ZX Excision of Sigmoid Colon, Via Natural or Artificial Opening Endoscopic, Diagnostic (ICD-10-PCS; 2021-09-24)
PROC: 0DBM8ZX Excision of Descending Colon, Via Natural or Artificial Opening Endoscopic, Diagnostic (ICD-10-PCS; 2021-09-24)
PROC: 0DBH8ZX Excision of Cecum, Via Natural or Artificial Opening Endoscopic, Diagnostic (ICD-10-PCS; 2021-09-24)
DX: K31.82 Dieulafoy lesion (hemorrhagic) of stomach and duodenum (principal); G92.8 Other toxic encephalopathy; D62 Acute posthemorrhagic anemia; N17.9 Acute kidney failure, unspecified; I13.0 Hypertensive heart and chronic kidney disease with heart failure and stage 1 through stage 4 chronic kidney disease, or unspecified chronic kidney disease; I50.32 Chronic diastolic (congestive) heart failure; F33.3 Major depressive disorder, recurrent, severe with psychotic symptoms; Z20.822 Contact with and (suspected) exposure to COVID-19; K57.30 Diverticulosis of large intestine without perforation or abscess without bleeding; K63.5 Polyp of colon; K21.9 Gastro-esophageal reflux disease without esophagitis; K63.9 Disease of intestine, unspecified; E78.5 Hyperlipidemia, unspecified; E11.22 Type 2 diabetes mellitus with diabetic chronic kidney disease; N18.30 Chronic kidney disease, stage 3 unspecified; E11.51 Type 2 diabetes mellitus with diabetic peripheral angiopathy without gangrene; E55.9 Vitamin D deficiency, unspecified; E11.42 Type 2 diabetes mellitus with diabetic polyneuropathy; Z86.14 Personal history of Methicillin resistant Staphylococcus aureus infection; Z89.512 Acquired absence of left leg below knee; Z89.511 Acquired absence of right leg below knee; Z87.891 Personal history of nicotine dependence; Z79.01 Long term (current) use of anticoagulants; Z79.899 Other long term (current) drug therapy; Z79.82 Long term (current) use of aspirin; Z79.4 Long term (current) use of insulin; Z88.1 Allergy status to other antibiotic agents
CPT/HCPCS: 36415; 36430; 51702; 70450; 74176; 80047; 80053; 80069; 82010; 82800; 82947; 83735; 84484; 85014; 85018; 85025; 85610; 85730; 86850; 86900; 86901; 86923; 93005; 93010; 94762; 96374; 99285-25; A9270; C9113; J0171; J1430; J1815; J2250; J2704; J7030; J7050; J7120; P9016; U0004

== ENCOUNTER 2021-12-21 09:25 | Inpatient (IN) | payer OTHER ==
[~2021-12-21] VITALS: Ht 157.5 cm; Wt 95.5 kg
[~2021-12-21 09:25] MED LIST changes: +CARVEDILOL12.5 MG PO; +DORZOLAMIDE-TIM10 ML BOTHEYES; +ESCI20 PO; +LIPITOR80 MG PO; +LISI20 PO; +SITA50T2 PO; +TRULICITY1.5 MG/0.1 SC; +XARELTO20 MG PO
[2021-12-21 10:26] LABS: BASOPHILS ABSOLUTE AUTO 0.01 K/mm3 (0.00-0.23); BASOPHILS PERCENT AUTO 0 % (0-2); EOSINOPHILS ABSOLUTE AUTO 0.01 K/mm3 (0.00-0.68); EOSINOPHILS PERCENT AUTO 0 % (0-6); Hematocrit 31.6 % (37.0-53.0); IMMATURE GRAN ABSOLUTE AUTO 0.04 K/mm3 (0.00-0.10); IMMATURE GRAN PERCENT AUTO 1 % (0-1); LYMPHOCYTES ABSOLUTE AUTO 0.76 K/mm3 (0.84-5.20); LYMPHOCYTES PERCENT AUTO 12 % (21-46); MONOCYTES ABSOLUTE AUTO 0.36 K/mm3 (0.16-1.47); MONOCYTES PERCENT AUTO 6 % (4-13); Mean Corpuscular HGB 25.3 pg (26.0-34.0); Mean Corpuscular HGB Conc 31.6 g/dL (31.5-36.5); Mean Corpuscular Volume 80 fL (80-100); Mean Platelet Volume 12.8 fL (9.1-12.4); NEUTROPHILS ABSOLUTE AUTO 5.24 K/mm3 (1.96-9.15); NEUTROPHILS PERCENT AUTO 82 % (41-73); Platelet Count 162 K/mm3 (150-400); RDW Coefficient Variation 16.7 % (11.7-14.2); RDW Standard Deviation 48.4 fL (35.1-46.3); Red Blood Cell Count 3.96 M/mm3 (4.30-5.90); White Blood Cell Count 6.42 K/mm3 (4.00-11.30)
[2021-12-21 10:37] LABS: Influenza A, PCR NEGATIVE (NEGATIVE); Influenza B, PCR NEGATIVE (NEGATIVE); Resp Syncytial Virus, PCR NEGATIVE (NEGATIVE)
[2021-12-21 10:38] LABS: Source, Urine Foley catheter
[2021-12-21 10:40] LABS: SARS-Cov-2 (COVID-19) PCR, MMC POSITIVE (NEGATIVE)
[2021-12-21 10:41] LABS: Albumin, Blood 2.6 g/dL (3.4-5.0); Albumin/Globulin Ratio 0.6 (0.8-1.8); Bilirubin, Total 0.5 mg/dL (0.1-1.0); Bun/Creatinine Ratio 18.9 (12.0-20.0); Calcium, Blood 8.2 mg/dL (8.5-10.1); Creatinine, Blood 2.33 mg/dL (0.60-1.20); Globulin, Blood 4.5 g/dL (2.2-4.0); Potassium, Blood 4.1 mmol/L (3.5-5.5); Total Protein, Blood 7.1 g/dL (6.4-8.2)
[2021-12-21 10:47] LABS: Magnesium, Blood 1.9 mg/dL (1.6-2.4); Phosphorus, Blood 3.4 mg/dL (2.5-4.9)
[2021-12-21 11:02] LABS: Appearance, Urine Clear (Clear); Bilirubin, Urine Neg (Neg); Blood, Urine Neg (Neg); Color, Urine Yellow (P-Yellow); Glucose Qualitative, Urine Neg (Neg); Ketones, Urine Neg (Neg); Leukocyte Esterase, Urine Neg (Neg); Nitrite, Urine Neg (Neg); Protein, Urine 2+ (Neg); Specific Gravity, Urine 1.015 (1.003-1.022); Urobilinogen, Urine 1+ (Normal)
[2021-12-21 11:37] LABS: Bacteria Not Seen /hpf; Hyaline Casts 0-2 /lpf (0-2); Red Blood Cells, Urine 0-2 /hpf (0-2); Squamous Epithelial Cells Rare /hpf (Few); White Blood Cells, Urine 0-2 /hpf (0-5)
--- NOTE | 2021-12-21 17:59 | NUR ---
PT ARRIVED IN THE UNIT AT 1300 FROM [facility], TRANSFERRED TO BED VIA SLIDER SHEET. PT ARRIVED WITH 4L OF O2 NC ON SATTING ABOVE 90%. HRR SR WITH PAC'S AT 60-70'S, BP SYSTOLIC 100-120'S, AFEBRILE. PT HAS BILATERAL BKA, PT MOBILE IN BED, HAS A MINOR IN PLACE DRAINING YELLOW URINE VIA GRAVITY, ATTENDS IN PLACE. PT IS A LIFT ASSIST FOR TRANSFER. ALERT AND ORIENTED X3, WITH SOME CONFUSION, CALLS APPROPRIATELY ABLE TO MAKE NEEDS KNOWN. NS RUNNING AT 100MLS/HR. PT DENEIS ANY PAIN. HAS REDNESS ON COCCYX, CREAM APPLIED. NO ISSUES WITH PO INTAKE. PT NOW EATING DINNER, NO OTHER ISSUES REPORTED, WILL REPORT TO ONCOMING SHIFT
[2021-12-21] MEDS ORDERED: FLUT.05NI (19:48)
--- NOTE | 2021-12-22 00:18 | NUR ---
Assumed care of pt at 1900. A/Ox4. Occasional confusion. Reports no pain/cp/pressure. BL bka. Maintaining above 90% on 4L NC, LS clear upper, dim at bases. Baseline is RA. SR on tele with PAC's in the 60's. BP stable. Firm distended abdomen, pt reports normal. Stuart draining to gravity yellow/bhavin urine. Pale skin, with reddened coccyx (mepilex applied) and scab at old amputation site. Spoke to daughter Sara to update about plan of care. Will update as changes occur.
[2021-12-22 04:25] LABS: Hematocrit 29.7 % (37.0-53.0); Mean Corpuscular HGB 25.1 pg (26.0-34.0); Mean Corpuscular HGB Conc 30.3 g/dL (31.5-36.5); Mean Corpuscular Volume 83 fL (80-100); Mean Platelet Volume 12.9 fL (9.1-12.4); Platelet Count 172 K/mm3 (150-400); RDW Coefficient Variation 16.4 % (11.7-14.2); RDW Standard Deviation 49.7 fL (35.1-46.3); Red Blood Cell Count 3.59 M/mm3 (4.30-5.90); White Blood Cell Count 5.37 K/mm3 (4.00-11.30)
[2021-12-22 04:55] LABS: Bun/Creatinine Ratio 22.2 (12.0-20.0); Calcium, Blood 7.5 mg/dL (8.5-10.1); Creatinine, Blood 1.62 mg/dL (0.60-1.20); Potassium, Blood 4.6 mmol/L (3.5-5.5)
--- NOTE | 2021-12-22 12:38 | NUR ---
NOON ASSESSMENT NO CHANGES TO REPORT FROM AM ASSESSMENT. PT DENIES SHORTNESS OF BREATH. WILL CONTINUE TO MONITOR.
--- NOTE | 2021-12-22 15:30 | NUR ---
EVENING ASSESSMENT PT'S LUNG SOUNDS ARE DIM T/O. HE REMAINS ON 4LO2 VIA NC. PT IS DIAPHORETIC, HE REPORTS THIS IS NORMAL FOR HIM. HE DENIES SHORTNESS OF BREATH AND CHEST PAIN. NO SIGNIFICANT CHANGES TO REPORT SINCE PREVIOUS ASSESSMENT.
--- NOTE | 2021-12-22 16:45 | NUR ---
SHIFT SUMMARY PT REMAINS ON 4L O2 VIA NC. PT EDUCATED TO USE FLUTTER VALVE. PLAN FOR PHYSICAL THERAPY. STATUS CHANGE TO MEDICAL NO TELE. PT IS TOLERATING PO. ORDER FOR PHYSICAL THERAPY PLACED PER DR. BOYER. WILL CONTINUE TO MONITOR UNTIL REPORT TO JOVON RN.
--- NOTE | 2021-12-22 21:16 | NUR ---
CARE ASSUMPTION PT SITTING UP IN BED DENYING ANY PAIN OR NAUSEA AT THIS TIME. VSS AND O2 SATS >90% ON 4L NC. PT DENYING ANY OTHER NEEDS AT THIS TIME.
[2021-12-23 04:12] LABS: Albumin, Blood 2.1 g/dL (3.4-5.0); Anion Gap 6 mmol/L (6-16); Blood Urea Nitrogen 31 mg/dL (8-24); CO2, Blood 22 mmol/L (21-32); Calcium, Blood 7.7 mg/dL (8.5-10.1); Chloride, Blood 109 mmol/L (98-108); Creatinine, Blood 1.29 mg/dL (0.60-1.20); Glomerular Filtration Rate 55 (60-); Glucose, Blood 229 mg/dL (70-99); Phosphorus, Blood 2.5 mg/dL (2.5-4.9); Potassium, Blood 4.6 mmol/L (3.5-5.5); Sodium, Blood 137 mmol/L (136-145)
--- NOTE | 2021-12-23 05:57 | NUR ---
AVIONICS SYSTEMS ENGINEER SUMMARY PT IS AXO X4 AND USES HIS CALL LIGHT TO MAKE HIS NEEDS KNOWN. NO NEW EVENTS THE PT HAS MAINTAINED O2 SATS >90% ON 4.5L NC AND VS REMAIN STABLE. PT HAS DENIED ANY PAIN OR NAUSEA THIS SHIFT AND REPORTS THAT HE IS FEELING BETTER THAN WHEN HE CAME IN. PT ASLEEP COMFORTABLY W CALL LIGHT WITHIN REACH FOR MOST OF THE SHIFT. WILL REPORT TO ONCOMING RN.
[2021-12-23 10:19] LABS: BASOPHILS ABSOLUTE AUTO 0.01 K/mm3 (0.00-0.23); BASOPHILS PERCENT AUTO 0 % (0-2); EOSINOPHILS PERCENT AUTO 0 % (0-6); Hematocrit 30.8 % (37.0-53.0); Hemoglobin 9.4 g/dL (13.5-17.5); IMMATURE GRAN ABSOLUTE AUTO 0.07 K/mm3 (0.00-0.10); IMMATURE GRAN PERCENT AUTO 1 % (0-1); LYMPHOCYTES ABSOLUTE AUTO 0.47 K/mm3 (0.84-5.20); LYMPHOCYTES PERCENT AUTO 5 % (21-46); MONOCYTES PERCENT AUTO 4 % (4-13); Mean Corpuscular HGB 25.1 pg (26.0-34.0); Mean Corpuscular HGB Conc 30.5 g/dL (31.5-36.5); Mean Corpuscular Volume 82 fL (80-100); Mean Platelet Volume 12.1 fL (9.1-12.4); NEUTROPHILS ABSOLUTE AUTO 8.82 K/mm3 (1.96-9.15); NEUTROPHILS PERCENT AUTO 90 % (41-73); Platelet Count 214 K/mm3 (150-400); RDW Coefficient Variation 16.5 % (11.7-14.2); RDW Standard Deviation 49.3 fL (35.1-46.3); Red Blood Cell Count 3.74 M/mm3 (4.30-5.90); White Blood Cell Count 9.77 K/mm3 (4.00-11.30)
--- NOTE | 2021-12-23 13:11 | NUR ---
Patient was transferred from PCU to Medical unit RM 325 at 1030. Patient was alert and orient x3, he was on 5LPM for oxygen, and not on tele. He was admitted for pneumonia, covid. Patient has had PT to assess and he is now assist of 1 to transfer from bed to w/c and vice versa. Patient does have bilat BKA but can stilll transfer appropriately. Patient is currently in chair and just finished lunch. He had no complaints of pain and had no requests at this time
--- NOTE | 2021-12-23 16:21 | NUR ---
Patient was alert and orient. Physical/Occupational therapy worked with him today. He stayed sitting in the chair for at minimum 3 hours. Patient was compliant with scheduled meds and had no complaints of pain. Patient was able to express his needs verbally and by using call light. Patient continues to have glucose checks.
--- NOTE | 2021-12-24 05:22 | NUR ---
SHIFT SUMMARY AOX4 ABLE TO VOICE NEEDS DENIES PAIN IN THIS SHIFT ON CONT O2 4L/MIN VIA N/C NO SOB NOTED LUNGS SOUNDS CLEAR KRISHNA.NO S/S OF HYPO/HYPERGLYCEMIA NOTED.MINOR DRANING DARK BROWN URINE ENCOURAGED PO FLUIDS.
[2021-12-24 05:41] LABS: Hematocrit 30.5 % (37.0-53.0); Hemoglobin 9.4 g/dL (13.5-17.5)
[2021-12-24 06:07] LABS: Albumin, Blood 2.1 g/dL (3.4-5.0); Anion Gap 6 mmol/L (6-16); Blood Urea Nitrogen 25 mg/dL (8-24); Bun/Creatinine Ratio 21.6 (12.0-20.0); CO2, Blood 24 mmol/L (21-32); Calcium, Blood 8.1 mg/dL (8.5-10.1); Chloride, Blood 107 mmol/L (98-108); Creatinine, Blood 1.16 mg/dL (0.60-1.20); Glomerular Filtration Rate >60 (60-); Glucose, Blood 179 mg/dL (70-99); Phosphorus, Blood 2.6 mg/dL (2.5-4.9); Potassium, Blood 4.5 mmol/L (3.5-5.5); Sodium, Blood 137 mmol/L (136-145)
--- NOTE | 2021-12-24 08:02 | NUR ---
VINCENT montana handoff of patient care from VINCENT Jacobs Patient was asleep in bed and did not appear to be in any distress
[2021-12-24] MEDS ORDERED: DEXA6 PO (14:12)
--- NOTE | 2021-12-24 17:31 | NUR ---
Patient was alert and orient, He will be discharged to home today and his is approximately 30 minutes from picking him up. Patient was pleasant and had no complaints of pain. He was compliant with taking scheduled meds and requested no PRNs. Patient cont on oxygen 4LPM and the oxygen was just delivered to be taken home. Patient had no further requests
== END 2021-12-24 17:53 | disposition home or self-care (01) | DRG 177 ==
LOC: ER 09:25 → PCU 11:48 → MEDS 12-23 10:51
PROVIDERS: Emergency Medicine; Internal Medicine; ADMIT Internal Medicine
PROC: 8E0ZXY6 Isolation (ICD-10-PCS; principal; 2021-12-21)
PROC: 3E0333Z Introduction of Anti-inflammatory into Peripheral Vein, Percutaneous Approach (ICD-10-PCS; 2021-12-21)
DX: U07.1 COVID-19 (principal); J96.01 Acute respiratory failure with hypoxia; J12.82 Pneumonia due to coronavirus disease 2019; N17.9 Acute kidney failure, unspecified; I50.32 Chronic diastolic (congestive) heart failure; I13.0 Hypertensive heart and chronic kidney disease with heart failure and stage 1 through stage 4 chronic kidney disease, or unspecified chronic kidney disease; E87.1 Hypo-osmolality and hyponatremia; E11.22 Type 2 diabetes mellitus with diabetic chronic kidney disease; D64.9 Anemia, unspecified; N18.30 Chronic kidney disease, stage 3 unspecified; E11.40 Type 2 diabetes mellitus with diabetic neuropathy, unspecified; E11.51 Type 2 diabetes mellitus with diabetic peripheral angiopathy without gangrene; Z89.512 Acquired absence of left leg below knee; K21.9 Gastro-esophageal reflux disease without esophagitis; Z89.511 Acquired absence of right leg below knee; Z90.49 Acquired absence of other specified parts of digestive tract; Z98.890 Other specified postprocedural states; Z79.899 Other long term (current) drug therapy; Z88.1 Allergy status to other antibiotic agents; Z79.82 Long term (current) use of aspirin; Z79.4 Long term (current) use of insulin
CPT/HCPCS: 0241U; 36415; 51702; 71045; 80048; 80053; 80069; 81001; 82947; 83605; 83735; 83880; 84100; 84484; 85014; 85018; 85025; 85027; 87040; 93005; 93010; 94761; 96374; 97110; 97162; 99285-25; A9270; J1100; J1644; J1815; J7030

== ENCOUNTER → 2022-01-19 | Outpatient (CLI) | payer OTHER ==
[~2022-01-19] MED LIST changes: +Alphagan P5 ML; +DEXA6 PO; +FLUT.05NI; +SAXA2.5T; +SILVADENE20 G1 TOP; +XARELTO10 M2 PO
[2022-02-04 09:51] LABS: Stool Occult Bld Immuno 1 Negative (NEGATIVE)
== END | disposition home or self-care (01) ==
LOC: LAB 12:00 → LAB SHORT 12:00
PROVIDERS: Physician Assistant
DX: Z12.11 Encounter for screening for malignant neoplasm of colon (principal); Z12.12 Encounter for screening for malignant neoplasm of rectum; Z13.0 Encounter for screening for diseases of the blood and blood-forming organs and certain disorders involving the immune mechanism
CPT/HCPCS: G0328

== ENCOUNTER 2022-03-04 07:37 | Day surgery (SDC) | payer OTHER ==
[~2022-03-04] VITALS: Ht 175.3 cm; Wt 95.5 kg
== END 2022-03-04 09:19 | disposition home or self-care (01) ==
LOC: ORSCSDS 07:37
PROVIDERS: Ophthalmology
PROC: 08RJ3JZ Replacement of Right Lens with Synthetic Substitute, Percutaneous Approach (ICD-10-PCS; principal; 2022-03-04 09:00)
DX: H25.13 Age-related nuclear cataract, bilateral (principal); H21.81 Floppy iris syndrome; E11.3312 Type 2 diabetes mellitus with moderate nonproliferative diabetic retinopathy with macular edema, left eye; E11.3491 Type 2 diabetes mellitus with severe nonproliferative diabetic retinopathy without macular edema, right eye; H40.9 Unspecified glaucoma; H34.12 Central retinal artery occlusion, left eye; Z87.891 Personal history of nicotine dependence; I10 Essential (primary) hypertension; E78.5 Hyperlipidemia, unspecified; I73.9 Peripheral vascular disease, unspecified; F32.A Depression, unspecified; Z79.899 Other long term (current) drug therapy; Z79.82 Long term (current) use of aspirin; Z79.4 Long term (current) use of insulin; Z79.01 Long term (current) use of anticoagulants; K21.9 Gastro-esophageal reflux disease without esophagitis
CPT/HCPCS: 82947; J2001; J2250; J3010; J3301; J7040; V2632

== ENCOUNTER 2022-04-01 11:35 | Day surgery (SDC) | payer OTHER ==
[~2022-04-01] VITALS: Ht 175.3 cm; Wt 95.5 kg
--- NOTE | 2022-04-01 12:07 | NUR ---
04/01/22 1207 Ila Davis CALL LIGHT WITHIN REACH. FAMILY AT BEDSIDE. ANN MARIE AT 1159 [place] AT 1201
== END 2022-04-01 13:06 | disposition home or self-care (01) ==
LOC: ORSCSDS 11:35
PROVIDERS: Ophthalmology
PROC: 08RK3JZ Replacement of Left Lens with Synthetic Substitute, Percutaneous Approach (ICD-10-PCS; principal; 2022-04-01 13:00)
DX: H25.12 Age-related nuclear cataract, left eye (principal); I10 Essential (primary) hypertension; E11.311 Type 2 diabetes mellitus with unspecified diabetic retinopathy with macular edema; N18.2 Chronic kidney disease, stage 2 (mild); F41.9 Anxiety disorder, unspecified; F32.A Depression, unspecified; H40.9 Unspecified glaucoma; I73.9 Peripheral vascular disease, unspecified; Z87.891 Personal history of nicotine dependence; E66.9 Obesity, unspecified; Z68.31 Body mass index [BMI] 31.0-31.9, adult; Z79.01 Long term (current) use of anticoagulants; Z79.82 Long term (current) use of aspirin; Z79.899 Other long term (current) drug therapy
CPT/HCPCS: 82947; J2001; J2250; J3010; J3301; J7040; V2632

== ENCOUNTER → 2022-11-12 | Outpatient (CLI) | payer OTHER ==
[2022-11-12 12:10] LABS: Bun/Creatinine Ratio 13.5 (12.0-20.0); Calcium, Blood 8.8 mg/dL (8.5-10.1); Creatinine, Blood 1.41 mg/dL (0.60-1.20); Potassium, Blood 4.5 mmol/L (3.5-5.5)
== END ==
LOC: LAB SHORT 10:37 → LAB 10:37
PROVIDERS: Physician Assistant
DX: E78.2 Mixed hyperlipidemia (principal)
CPT/HCPCS: 36415; 80048

== ENCOUNTER → 2022-12-11 | Outpatient (CLI) | payer MEDICARE, OTHER ==
[2022-12-16 11:21] LABS: Stool Occult Bld Immuno 1 Negative (NEGATIVE)
== END ==
LOC: LAB 12:00 → LAB SHORT 12:00
PROVIDERS: Physician Assistant
DX: R19.5 Other fecal abnormalities (principal); R19.7 Diarrhea, unspecified
CPT/HCPCS: G0328

== ENCOUNTER 2023-11-03 10:34 | Inpatient (IN) | payer MEDICARE ==
[~2023-11-03] VITALS: Ht 152.4 cm; Wt 94.5 kg
[2023-11-03 11:03] LABS: pH Blood Venous 7.41 (7.34-7.37)
[2023-11-03 11:04] LABS: Base Excess Venous -1.9 mmol/L; Bicarbonate Venous 23.1 mmol/L (24.0-30.0); PCO2 Venous 36.4 mmHg (38-42)
[2023-11-03 11:08] LABS: BASOPHILS ABSOLUTE AUTO 0.07 K/mm3 (0.00-0.23); BASOPHILS PERCENT AUTO 1 % (0-2); EOSINOPHILS ABSOLUTE AUTO 0.14 K/mm3 (0.00-0.68); EOSINOPHILS PERCENT AUTO 1 % (0-6); Hematocrit 41.2 % (37.0-53.0); Hemoglobin 13.5 g/dL (13.5-17.5); IMMATURE GRAN ABSOLUTE AUTO 0.08 K/mm3 (0.00-0.10); IMMATURE GRAN PERCENT AUTO 1 % (0-1); LYMPHOCYTES ABSOLUTE AUTO 1.36 K/mm3 (0.84-5.20); LYMPHOCYTES PERCENT AUTO 9 % (21-46); MONOCYTES ABSOLUTE AUTO 0.98 K/mm3 (0.16-1.47); MONOCYTES PERCENT AUTO 7 % (4-13); Mean Corpuscular HGB 30.2 pg (26.0-34.0); Mean Corpuscular HGB Conc 32.8 g/dL (31.5-36.5); Mean Corpuscular Volume 92 fL (80-100); Mean Platelet Volume 11.7 fL (9.1-12.4); NEUTROPHILS ABSOLUTE AUTO 12.27 K/mm3 (1.96-9.15); NEUTROPHILS PERCENT AUTO 82 % (41-73); Platelet Count 205 K/mm3 (150-400); RDW Standard Deviation 43.6 fL (35.1-46.3); Red Blood Cell Count 4.47 M/mm3 (4.30-5.90)
[2023-11-03 11:49] LABS: Albumin, Blood 2.9 g/dL (3.4-5.0); Albumin/Globulin Ratio 0.6 (0.8-1.8); Bilirubin, Total 0.5 mg/dL (0.1-1.0); Bun/Creatinine Ratio 18.4 (12.0-20.0); Calcium, Blood 8.3 mg/dL (8.5-10.1); Creatinine, Blood 1.47 mg/dL (0.60-1.20); Globulin, Blood 4.5 g/dL (2.2-4.0); Potassium, Blood 5.1 mmol/L (3.5-5.5); Total Protein, Blood 7.4 g/dL (6.4-8.2)
[2023-11-03 12:02] LABS: Influenza A, PCR NEGATIVE (NEGATIVE); Influenza B, PCR NEGATIVE (NEGATIVE); Resp Syncytial Virus, PCR NEGATIVE (NEGATIVE); SARS-Cov-2 (COVID-19) PCR, MMC NEGATIVE (NEGATIVE)
[2023-11-03 13:34] LABS: Anti-Xa UFH, PHA Monitoring <0.10 IU/mL; International Normalized Ratio 0.96; Prothrombin Time Results 10.1 Sec (9.7-11.5)
[2023-11-03 15:40] VITALS: BP 154/93
--- NOTE | 2023-11-03 16:05 | NUR ---
PT ARRIVED TO PCU AT 1530 VIA GUNEY AND ON 6L NC. PT SLID FROM GURNEY TO BED VIA SLIDE SHEET WITH ASSISTANCE OF 4 STAFF. PT A/OX4 AT TIME OF ARRIVAL. ELEVATED BP, SEE CHART. NO REPORT OF CHEST PAIN/PRESSURE AT TIME OF ARRIVAL. PT REPROTS SOB IS "WHAT BROUGHT ME IN TO THE HOSPITAL." PT STATED THAT HE HAS BEEN COUGHING ALOT BUT UNABLE TO TO GET ANYTHING UP. PT HAS BILATE BKA. PT HAS GROSS MOVEMENT OF BILAT UPPER EXTREMITIES. SKIN INTACT WITH SOME REDNESS OF BUTTOCKS, BLANCHABLE. RESOURCE CONSERVATION SPECIALIST TO SEE PT AT BEDSIDE MOMENTS AFTER ARRIVAL.
[2023-11-03] MEDS ORDERED: GABA300 PO (16:15)
[2023-11-03] MEDS ORDERED: DULO60 PO (16:18)
--- NOTE | 2023-11-03 17:11 | NUR ---
REPORT RECIEVED FROM ER NURSE AT 1558.
[2023-11-03 20:04] VITALS: BP 145/80
[2023-11-04] VITALS (31 sets, daily range): BP systolic 77–149; BP diastolic 47–125
--- NOTE | 2023-11-04 04:18 | NUR ---
SHIFT SUMMARY THIS RN ASSUMED CARE OF PATIENT AT 1900. PT A&O X3-4 DURING THIS SHIFT. PT APPEARS TO BE FORGETFUL AND A POOR HISTORIAN AT TIMES. AFIB BBB WITH HR 70'S. BP STABLE. ON 6L VIA NC WITH SPO2 >92%. PT CALLING APPROPRIATELY. TURNING SELF IN BED INDEPENDENTLY. PT UNABLE TO VOID DURING THIS SHIFT. BLADDER SCAN SHOWING 580ML, STRAIGHT CATH PERFORMED WITH 620MLS OF URINE. PT TOLERATED WELL. PT REFUSED BIPAP TONIGHT. HEP GTT INFUSING PER EMAR. BED IN LOWEST POSITION AND CALL LIGHT WITHIN REACH. THIS RN WILL REPORT TO ONCOMING DAYSHIFT RN.
[2023-11-04 05:20] LABS: Alanine Aminotransfer (ALT/SGP 27 U/L (12-78); Albumin, Blood 2.8 g/dL (3.4-5.0); Albumin/Globulin Ratio 0.6 (0.8-1.8); Alk Phos 70 U/L (50-136); Anion Gap 6 mmol/L (6-16); Aspartate Aminotrans (AST/SGOT 89 U/L (12-37); Bilirubin, Direct <0.1 mg/dL (0.0-0.3); Bilirubin, Indirect Unable to Calculate mg/dL (0.1-0.7); Bilirubin, Total 0.4 mg/dL (0.1-1.0); Blood Urea Nitrogen 38 mg/dL (8-24); CO2, Blood 27 mmol/L (21-32); Calcium, Blood 8.4 mg/dL (8.5-10.1); Chloride, Blood 102 mmol/L (98-108); Creatinine, Blood 1.65 mg/dL (0.60-1.20); Globulin, Blood 4.4 g/dL (2.2-4.0); Glomerular Filtration Rate 44 (60-); Glucose, Blood 361 mg/dL (70-99); Potassium, Blood 4.4 mmol/L (3.5-5.5); Sodium, Blood 135 mmol/L (136-145); Total Protein, Blood 7.2 g/dL (6.4-8.2)
--- NOTE | 2023-11-04 09:28 | NUR ---
PT LEFT PCU AT 0900 FOR ANGIO. PT ON 6L NC AT SHEKHAR OF TRANSFER. TRANSFERED VIA HOSPITAL BED. HEP GTT STANDBY AND PHARMACY NOTIFIED.
--- NOTE | 2023-11-04 13:13 | NUR ---
UPDATE MD NOTIFIED OF PT BP'S BECOMING SOFT, SEE CHART. MD ORDERED 1,000ML BOLUS AND INSTRUCTED THIS RN NOT TO START HEPARIN GTT YET.
--- NOTE | 2023-11-04 18:23 | NUR ---
TR BAND RECOVERY 1230- 2ML REMOVED. 1245- 2ML REMOVED. 1300- 2ML REMOVED. 1330- 2 ML REMOVED. 1345- 2ML REMOVED. TR COMPLETELY DEFLATED AT 1400. BAND REMOVED AT 1500 AND COVERED WITH TEGADERM. NO BLEEDING NOTED.
--- NOTE | 2023-11-04 18:29 | NUR ---
SHIFT SUMMARY PT A/OX4 AND COOPERATIVE OF CARE. PT ABLE TO EXPRESS NEEDS AND CALLS APPROPIATE. PT HAD ANGIO DONE TODAY, NO INTERVENTIONS. PT PLANNING TO COBRA TO [facility] 11/06 FOR INTERVENTIONS. PT BECAME HYPOTENSIVE AFTER ANGIO, MD AND CRULLER MAKER NOTIFIED. CRULLER MAKER INSTRUCTED TO HOLD LISINOPRIL. PT RECIEVED 2L BOLUS. HEP GTT RUNNING PER EMAR. FAMILY UPDATED OF PLAN. PT INDEPENDENT IN BED, NOW NEEDING SOME ASSISTANCE DUE TO RIGHT RADIAL SITE RESTRICTIONS. PT REMAINED ON 6L NC, SATS IN THE 90'S, NO SOB. NO REPORT OF CHEST PAIN/PRESSURE.
[2023-11-05 04:57] VITALS: BP 143/79
--- NOTE | 2023-11-05 06:21 | NUR ---
SHIFT SUMMARY ASSUMED CARE OF PT AT 1900. PT IS A/OX4 BUT FORGETFUL. HEART SOUNDS REGULAR. LUNG SOUNDS HAVE CRACKLES AT BASES. PT BP STABLE T/O NOC. PT USED URINAL AT BEDSIDE. PT COMPLAINED OF NOT BEING ABLE TO SLEEP DURING THE NOC.
[2023-11-05 07:55] LABS: BASOPHILS ABSOLUTE AUTO 0.05 K/mm3 (0.00-0.23); BASOPHILS PERCENT AUTO 0 % (0-2); EOSINOPHILS ABSOLUTE AUTO 0.08 K/mm3 (0.00-0.68); EOSINOPHILS PERCENT AUTO 1 % (0-6); Hematocrit 36.6 % (37.0-53.0); Hemoglobin 12.2 g/dL (13.5-17.5); IMMATURE GRAN ABSOLUTE AUTO 0.07 K/mm3 (0.00-0.10); IMMATURE GRAN PERCENT AUTO 1 % (0-1); LYMPHOCYTES ABSOLUTE AUTO 2.76 K/mm3 (0.84-5.20); LYMPHOCYTES PERCENT AUTO 20 % (21-46); MONOCYTES ABSOLUTE AUTO 1.02 K/mm3 (0.16-1.47); MONOCYTES PERCENT AUTO 7 % (4-13); Mean Corpuscular HGB 30.4 pg (26.0-34.0); Mean Corpuscular HGB Conc 33.3 g/dL (31.5-36.5); Mean Corpuscular Volume 91 fL (80-100); NEUTROPHILS PERCENT AUTO 72 % (41-73); Platelet Count 214 K/mm3 (150-400); RDW Coefficient Variation 13.2 % (11.7-14.2); RDW Standard Deviation 43.2 fL (35.1-46.3); Red Blood Cell Count 4.01 M/mm3 (4.30-5.90); White Blood Cell Count 14.08 K/mm3 (4.00-11.30)
[2023-11-05 08:06] VITALS: BP 135/85
[2023-11-05 08:40] LABS: Bun/Creatinine Ratio 26.1 (12.0-20.0); Calcium, Blood 8.6 mg/dL (8.5-10.1); Creatinine, Blood 1.57 mg/dL (0.60-1.20); Potassium, Blood 3.9 mmol/L (3.5-5.5)
[2023-11-05] MEDS ORDERED: XALATAN2.5 ML BOTHEYES (13:38)
[2023-11-05] MEDS ORDERED: 1/2 NS 250ml250 ML BOTHEYES (13:39)
[2023-11-05 15:18] VITALS: BP 129/61
--- NOTE | 2023-11-05 15:49 | NUR ---
Brief supportive visit this afternoon. Pt resting in bed upon arrival. Pt's daughter, spouse, and grandchildren at bedside. Brief review of plan of care. Pt and family agreeable with transfer. Pt reporting back pain and VINCENT Garnett in to offer Tylenol. Continued supportive visit. Palliative Care will remain available
--- NOTE | 2023-11-05 16:37 | NUR ---
SHIFT SUMMARY PATIENT AOX4, ABLE TO ANSWER ALL QUESTIONS. HEPARIN GTT RUNNING. MANAGED PER PHARMACY. POSSIBLE COBRA TRANSFER TO [facility]. NURSE SYSTEM ENGINEER CALLED THIS AM AND NOTIFIED THIS RN OF PLAN TO TRANSFER AFTER SHIFT CHANGE [facility]. UPDATED SHOPPING CENTRE MANAGER, UPDATED FAMILY IN ROOM. PATIENT TOLERATING PO INTAKE AND HAS HAD SEVERAL BM TODAY. URINATING USING URNIAL INDEP. ABLE TO TREANSFER TO BSC 1 ASSIST. CALLS APPROPRIATELY, CALL LIGHT IN REACH.
[2023-11-05 19:18] VITALS: BP 129/61
== END 2023-11-05 19:26 | disposition short-term general hospital (02) | DRG 280 ==
LOC: ER 10:34 → PCU 12:52
PROVIDERS: Emergency Medicine; ADMIT Hospitalist
PROC: 5A09457 Assistance with Respiratory Ventilation, 24-96 Consecutive Hours, Continuous Positive Airway Pressure (ICD-10-PCS; principal; 2023-11-03)
PROC: B2111ZZ Fluoroscopy of Multiple Coronary Arteries using Low Osmolar Contrast (ICD-10-PCS; 2023-11-04)
DX: I21.4 Non-ST elevation (NSTEMI) myocardial infarction (principal); I50.23 Acute on chronic systolic (congestive) heart failure; J96.01 Acute respiratory failure with hypoxia; J18.9 Pneumonia, unspecified organism; I48.92 Unspecified atrial flutter; E87.1 Hypo-osmolality and hyponatremia; N17.9 Acute kidney failure, unspecified; I13.0 Hypertensive heart and chronic kidney disease with heart failure and stage 1 through stage 4 chronic kidney disease, or unspecified chronic kidney disease; I44.2 Atrioventricular block, complete; Z66 Do not resuscitate; E11.22 Type 2 diabetes mellitus with diabetic chronic kidney disease; N18.30 Chronic kidney disease, stage 3 unspecified; E11.51 Type 2 diabetes mellitus with diabetic peripheral angiopathy without gangrene; E11.40 Type 2 diabetes mellitus with diabetic neuropathy, unspecified; K21.9 Gastro-esophageal reflux disease without esophagitis; H40.9 Unspecified glaucoma; I44.7 Left bundle-branch block, unspecified; I48.91 Unspecified atrial fibrillation; I95.81 Postprocedural hypotension; Z89.512 Acquired absence of left leg below knee; Z79.82 Long term (current) use of aspirin; Z79.4 Long term (current) use of insulin
CPT/HCPCS: 0241U; 36415; 71045; 76937; 80048; 80053; 82248; 82803; 82947; 83036; 83605; 83735; 83880; 84145; 84484; 85025; 85520; 85610; 85730; 93005; 93010; 93458; 94644; 94660; 94664; 94762; 96365; 96367; 96375; 97161; 99285-25; A9270; C1751; C1769; C1887; C1894; C8929; J0456; J0696; J1644; J1815; J1940; J2930; J7030; J7050; Q9957; Q9967

== ENCOUNTER → 2024-02-27 | Outpatient (CLI) | payer OTHER ==
[~2024-02-27] MED LIST changes: +1/2 NS 250ml250 ML BOTHEYES; +ADMELOG SO100 UNIT/2 SC; +DULO60 PO; +ELIQUIS5 M3 PO; +JARDIANCE10 MG PO; +PANTOPRAZOLE SO2010 PO; +XALATAN2.5 ML BOTHEYES
[2024-03-06 11:54] LABS: Stool Occult Blood Guaiac 1 Neg (Neg)
== END ==
LOC: LAB 12:00 → LAB SHORT 12:00
PROVIDERS: Physician Assistant
DX: D64.9 Anemia, unspecified (principal)
CPT/HCPCS: 82272

== ENCOUNTER 2024-03-13 13:22 | Inpatient (IN) | payer MEDICARE ==
[~2024-03-13] VITALS: Ht 175.3 cm; Wt 105.0 kg
[2024-03-13] VITALS (23 sets, daily range): BP systolic 76–112; BP diastolic 45–89
[~2024-03-13 13:22] MED LIST changes: -ADMELOG SO100 UNIT/2 SC; -ELIQUIS5 M3 PO; -JARDIANCE10 MG PO; -PANTOPRAZOLE SO2010 PO
[2024-03-13 13:45] LABS: BASOPHILS ABSOLUTE AUTO 0.07 K/mm3 (0.00-0.23); BASOPHILS PERCENT AUTO 0 % (0-2); EOSINOPHILS ABSOLUTE AUTO 0.11 K/mm3 (0.00-0.68); EOSINOPHILS PERCENT AUTO 1 % (0-6); Hemoglobin 11.5 g/dL (13.5-17.5); IMMATURE GRAN ABSOLUTE AUTO 0.09 K/mm3 (0.00-0.10); IMMATURE GRAN PERCENT AUTO 1 % (0-1); LYMPHOCYTES ABSOLUTE AUTO 1.02 K/mm3 (0.84-5.20); LYMPHOCYTES PERCENT AUTO 6 % (21-46); MONOCYTES ABSOLUTE AUTO 0.95 K/mm3 (0.16-1.47); MONOCYTES PERCENT AUTO 6 % (4-13); Mean Corpuscular HGB 30.3 pg (26.0-34.0); Mean Corpuscular HGB Conc 32.9 g/dL (31.5-36.5); Mean Corpuscular Volume 92 fL (80-100); Mean Platelet Volume 12.1 fL (9.1-12.4); NEUTROPHILS ABSOLUTE AUTO 14.86 K/mm3 (1.96-9.15); NEUTROPHILS PERCENT AUTO 87 % (41-73); Platelet Count 204 K/mm3 (150-400); RDW Coefficient Variation 13.3 % (11.7-14.2); Red Blood Cell Count 3.79 M/mm3 (4.30-5.90)
[2024-03-13 13:50] LABS: PCO2 Venous 50.9 mmHg (38-42); pH Blood Venous 7.29 (7.34-7.37)
[2024-03-13 13:51] LABS: Bicarbonate Venous 21.8 mmol/L (24.0-30.0)
[2024-03-13 14:34] LABS: Albumin, Blood 2.8 g/dL (3.4-5.0); Albumin/Globulin Ratio 0.7 (0.8-1.8); Bilirubin, Total 0.7 mg/dL (0.1-1.0); Bun/Creatinine Ratio 24.8 (12.0-20.0); Calcium, Blood 8.6 mg/dL (8.5-10.1); Creatinine, Blood 2.26 mg/dL (0.60-1.20); Globulin, Blood 4.3 g/dL (2.2-4.0); Total Protein, Blood 7.1 g/dL (6.4-8.2)
[2024-03-13] MEDS ORDERED: TRULICITY0.75 MG/01 SC (14:48)
[2024-03-13] MEDS ORDERED: PANTOPRAZOLE SO2010 PO (14:49)
[2024-03-13] MEDS ORDERED: JARDIANCE10 MG PO (14:49)
[2024-03-13] MEDS ORDERED: ELIQUIS5 M3 PO (14:50)
[2024-03-13] MEDS ORDERED: ADMELOG SO100 UNIT/2 SC (14:51)
[2024-03-13 15:37] LABS: Influenza A, PCR NEGATIVE (NEGATIVE); Influenza B, PCR NEGATIVE (NEGATIVE); Resp Syncytial Virus, PCR NEGATIVE (NEGATIVE); SARS-Cov-2 (COVID-19) PCR, MMC NEGATIVE (NEGATIVE)
[2024-03-13] MEDS ORDERED: CefTRIAXone Sodium 1,000 MG in NS 100 ML IV ONE (15:40)
[2024-03-13] MEDS ORDERED: Azithromycin 500 MG in NS 250 ML IV ONE (15:40)
[2024-03-13] MEDS ORDERED: Insulin Regular 100 Unit/ML 1ML Dose IV STA (15:46)
[2024-03-13] MEDS ORDERED: Ondansetron HCl 2 MG / ML 2ML Vial IV PRN (15:50)
[2024-03-13] MEDS ORDERED: Ipratropium/Albuterol SulF 2.5-0.5MG/3 ML Amp INH PRN (15:50)
[2024-03-13] MEDS ORDERED: Acetaminophen 325 MG TABLET PO PRN (16:00)
[2024-03-13] MEDS ORDERED: CALCIUM GLUC IN NACL, ISO-OSM 50 ML IV ONE (16:05)
[2024-03-13] MEDS ORDERED: Insulin Human Lispro 100 Units/ML 3ML Syringe SC SCH ×2 (16:30→21:00)
[2024-03-13 16:41] LABS: International Normalized Ratio 1.02; Prothrombin Time Results 10.9 Sec (9.7-11.5)
[2024-03-13] MEDS ORDERED: Aspirin 325 MG Tab PO STA (16:57)
[2024-03-13] MEDS ORDERED: Carvedilol 6.25 MG Tab PO SCH (17:00)
[2024-03-13] MEDS ORDERED: Dose Adjust by Pharmacy XX STA (17:38)
[2024-03-13] MEDS ORDERED: Heparin Sodium 5000 Units/ML 1ML MDV IV ONE (17:40)
[2024-03-13] MEDS ORDERED: Heparin Sodium,Porcine/0.5 NS 500 ML IV SCH (17:40)
[2024-03-13] MEDS ORDERED: Furosemide 10 MG / ML 2ML Vial IV SCH (18:00)
[2024-03-13 19:22] LABS: Bun/Creatinine Ratio 24.9 (12.0-20.0); Calcium, Blood 8.9 mg/dL (8.5-10.1); Creatinine, Blood 2.29 mg/dL (0.60-1.20); Potassium, Blood 5.6 mmol/L (3.5-5.5)
[2024-03-13] MEDS ORDERED: Furosemide 10 MG / ML 2ML Vial IV ONE (20:25)
[2024-03-13] MEDS ORDERED: Insulin Human Lispro 100 Units/ML 3ML Syringe SC ONE (20:25)
[2024-03-13 20:37] LABS: PCO2 Venous 52.2 mmHg (38-42); pH Blood Venous 7.27 (7.34-7.37)
[2024-03-13 20:38] LABS: Bicarbonate Venous 20.5 mmol/L (24.0-30.0)
--- NOTE | 2024-03-13 20:50 | NUR ---
TRANSFER TO ICU NOTE UPDATED PROVIDER AFUA VALENTIN ABOUT CRITICAL LACTIC AND TROPONIN LEVELS. ALSO DISCUSSED PT'S SOFT BLOOD PRESSURES, CBG LEVELS, AND RESPIRATORY STATUS. NEW ORDERS TO TRANSFER TO ICU AND NEW MEDICATION ORDERS. SEE EMAR AND VS FOR DETAILS. CALLED REPORT TO REAL PROPERTY APPRAISERVINCENT CONLEY. PT PROMPTLY TRANSFERRED TO ICU 5.
[2024-03-13] MEDS ORDERED: Insulin Glargine-Yfgn 100 Unit/mL 3 ML SYR SC SCH (21:00)
[2024-03-13] MEDS ORDERED: Gabapentin 300 MG Cap PO SCH (21:00)
[2024-03-13] MEDS ORDERED: Dorzolamide/Timolol Opth Soln 10 ML BOTHEYES SCH (21:00)
[2024-03-13] MEDS ORDERED: Latanoprost 0.005% Opth Soln 2.5 ML BOTHEYES SCH (21:00)
[2024-03-13] MEDS ORDERED: Fluticasone 0.05% Nasal Spray SCH (21:00)
[2024-03-13] MEDS ORDERED: Brimonidine Tartrate 0.2% Opth 5 ml LEFTEYE SCH (21:00)
--- NOTE | 2024-03-13 21:08 | NUR ---
UPDATE UPDATED PT'S (CATHY [phone]), ABOUT CHANGE IN PT'S CONDITION AND TRANSFER TO ICU. ALL QUESTIONS ANSWERED.
[2024-03-13 21:50] LABS: Beta-hydroxybutyrate 8.8 mg/dL (0.2-2.8)
[2024-03-13 21:57] LABS: Bun/Creatinine Ratio 23.1 (12.0-20.0); Calcium, Blood 8.5 mg/dL (8.5-10.1); Creatinine, Blood 2.47 mg/dL (0.60-1.20); Potassium, Blood 6.2 mmol/L (3.5-5.5)
--- NOTE | 2024-03-13 22:31 | NUR ---
PT TO ICU 5 VIA HOSPITAL BED AT 2044. PT DENIES CP AND SOB AT THIS TIME. BP 106/89, HR 92. HEPARIN INFUSING TO RAC AT 15 U/KG/HR. NO ACUTE NEEDS IDENTIFIED AT THIS TIME. SEE SHIFT ASSESSMENT FOR FULL DETAILS.
[2024-03-13] MEDS ORDERED: Insulin Regular 100 UNIT/ML 10ML Vial IV ONE (23:00)
[2024-03-13] MEDS ORDERED: Sodium Zirconium Cyclosilicate 10 GM Packet PO SCH (23:00)
[2024-03-14] VITALS (55 sets, daily range): BP systolic 74–129; BP diastolic 48–87
[2024-03-14] MEDS ORDERED: Clarify Drug Order XX ONE ×2 (00:20→22:15)
[2024-03-14] MEDS ORDERED: Melatonin 5 MG Tablet PO SCH ×2 (02:05→21:00)
[2024-03-14 02:10] LABS: Base Excess Venous -0.1 mmol/L; Bicarbonate Venous 23.2 mmol/L (24.0-30.0); PCO2 Venous 50.7 mmHg (38-42); pH Blood Venous 7.32 (7.34-7.37)
[2024-03-14 02:29] LABS: Alanine Aminotransfer (ALT/SGP 28 U/L (12-78); Albumin, Blood 2.8 g/dL (3.4-5.0); Albumin/Globulin Ratio 0.6 (0.8-1.8); Alk Phos 56 U/L (50-136); Anion Gap 12 mmol/L (3-11); Aspartate Aminotrans (AST/SGOT 34 U/L (12-37); Bilirubin, Total 0.5 mg/dL (0.1-1.0); Blood Urea Nitrogen 58 mg/dL (8-24); Bun/Creatinine Ratio 24.4 (12.0-20.0); CHOL/HDL RATIO 3.2; CO2, Blood 24 mmol/L (21-32); Calcium, Blood 8.6 mg/dL (8.5-10.1); Chloride, Blood 97 mmol/L (98-108); Cholesterol 109 mg/dL (50-200); Creatinine, Blood 2.38 mg/dL (0.60-1.20); Globulin, Blood 4.4 g/dL (2.2-4.0); Glomerular Filtration Rate 28 (60-); Glucose, Blood 358 mg/dL (70-99); HDL Cholesterol 34 mg/dL (>39); LDL/HDL RATIO 1.4; Low Density Lipoprotein Chol 47 mg/dL (0-110); Magnesium, Blood 2.5 mg/dL (1.6-2.4); Phosphorus, Blood 5.2 mg/dL (2.5-4.9); Potassium, Blood 5.1 mmol/L (3.5-5.5); Sodium, Blood 128 mmol/L (136-145); Total Protein, Blood 7.2 g/dL (6.4-8.2); Triglycerides 140 mg/dL (30-160); Very Low Density Lipoprot Chol 28 mg/dL (6-32)
[2024-03-14 02:33] LABS: Hematocrit 33.1 % (37.0-53.0); Mean Corpuscular HGB 30.5 pg (26.0-34.0); Mean Corpuscular HGB Conc 33.2 g/dL (31.5-36.5); Mean Corpuscular Volume 92 fL (80-100); Mean Platelet Volume 12.7 fL (9.1-12.4); Platelet Count 219 K/mm3 (150-400); RDW Coefficient Variation 13.3 % (11.7-14.2); RDW Standard Deviation 45.4 fL (35.1-46.3); Red Blood Cell Count 3.61 M/mm3 (4.30-5.90); White Blood Cell Count 17.24 K/mm3 (4.00-11.30)
[2024-03-14 02:45] LABS: Source, Urine Clean Catch
[2024-03-14 03:03] LABS: Bilirubin, Urine Neg (Neg); Blood, Urine Neg (Neg); Glucose Qualitative, Urine 4+ (Neg); Ketones, Urine Neg (Neg); Leukocyte Esterase, Urine Neg (Neg); Nitrite, Urine Neg (Neg); Protein, Urine Neg (Neg); Specific Gravity, Urine 1.015 (1.003-1.022); Urobilinogen, Urine NORM (Normal)
[2024-03-14 03:15] LABS: Appearance, Urine Clear (Clear); Color, Urine Pale Yellow (P-Yellow)
[2024-03-14] MEDS ORDERED: Pantoprazole Sodium 20 MG Tab PO SCH (06:00)
--- NOTE | 2024-03-14 06:24 | NUR ---
SHIFT SUMMARY PT REMAINED ALERT AND ORIENTED TO PLACE, PERSON, AND SITUATION T/0 ENTIRETY OF SHIFT. UNABLE TO VERBALIZE DATE/TIME. AFEBRILE AND DENIED PAIN. MONITOR SHOWED SR WITH HR IN 70'S-90'S, SBP 110'S-110'S. DENIED CP OR SOB. ALTERNATED BETWEEN BIPAP WITH SETTINGS OF 14/7/40% AND 5LPM O2 VIA NC. LAST BM UNKNOWN. Q4H CBG'S ORDERED FOLLOWING Q2H CHECKS AND ADMINISTRATION OF 5U IV INSULIN PER HOSPITALIST. PT REQUESTED JELL-O IN LATE EVENING AND TOLERATED WELL. CONDOM CATHETER BECAME DISLODGED AND MINOR WAS PLACED. DRAINING CLEAR YELLOW URINE TO GRAVITY. BLANCHABLE REDDENED AREA TO COCCYX NOTED ON EXAM. PG TO LEEANNE PIV TO RAC INFUSING HEPARIN AT 15U/KG/HR. WILL CONTINUE TO MONITOR AND REPORT TO ONCOMING RN.
[2024-03-14] MEDS ORDERED: Dose Adjust by Pharmacy XX STA ×3 (06:38→21:08)
[2024-03-14] MEDS ORDERED: Insulin Human Lispro 100 Units/ML 3ML Syringe SC SCH ×2 (07:30)
[2024-03-14] MEDS ORDERED: Carvedilol 6.25 MG Tab PO SCH (08:00)
[2024-03-14] MEDS ORDERED: Atorvastatin 40 MG Tab PO SCH (09:00)
[2024-03-14] MEDS ORDERED: DULoxetine HCL 60 MG Capsule DR PO SCH (09:00)
[2024-03-14] MEDS ORDERED: Clopidogrel Bisulfate 75 MG Tab PO SCH (09:00)
[2024-03-14] MEDS ORDERED: Aspirin 81 MG TabEC PO SCH (09:00)
--- NOTE | 2024-03-14 10:26 | NUR ---
Spiritual Care Visit. Pt. is awake in bed and welcomes my visit. 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 Pt. is unsettled by what he verbalized as a grim disgnosis in the ED. Listened with empathy and a calming presence. Facilitated a life review and Pt. shared about previous hospitalizations and his spouse who was hospitalized at this hospital in January. Consider matters of jerrod and belief. Pt. verbalized that he was not certain why they were doing an Echo earlier today. Sought to normalize the Pt. experience. Through theraputic listening and Pastoral tariff counsel the Pt. displays evidence of greater understanding. Prayed with Pt. Pt. verbalized gratitude for the spiritual care visit.
[2024-03-14] MEDS ORDERED: Empagliflozin 10 MG TAB PO SCH ×2 (11:00)
[2024-03-14] MEDS ORDERED: Polyethylene Glycol 3350 17 gm PO PRN (11:15)
[2024-03-14] MEDS ORDERED: Regadenoson 0.4 MG/5 ML SYRINGE ONE (12:28)
[2024-03-14] MEDS ORDERED: Aminophylline 250MG / 10ML 10 ML Vial ONE (12:28)
--- NOTE | 2024-03-14 16:46 | NUR ---
SHIFT SUMMARY NO ACUTE CHANGES THIS SHIFT. PT HAS REMAINED ALERT AND ORIENTED WHEN AWAKE. PT SLEEPING OFF AND ON THIS AFTERNOON. PT HAS DENIED CHEST PAIN OR SOB THIS SHIFT. PT WITH ONE EPISODE OF DIAPHORESIS WITHOUT CP. HEPARIN GTT INFUSING AT 18 UNITS/KG/HR. PT ON 6L O2 NC. PT HYPOTENSIVE WITH SBP 80-100'S THIS SHIFT. VITAL SIGNS OTHERWISE STABLE. PT TAKING PO INTAKE WELL. MINOR IN PLACE WITH YELLOW OUTPUT NOTED. PT SPOUSE AT BEDSIDE MOST OF THIS SHIFT. WILL CONTINUE TO MONITOR AND REPORT OFF TO ONCOMING RN.
--- NOTE | 2024-03-14 17:15 | NUR ---
MET WITH PATIENT AND FAMILY. DISCUSSED SYMPTOMS AND EVENTS THAT LED UP TO HOSPITAL VISIT. WE DISCUSSED PLAN OF CARE. HE WAS PENDING A STRESS TEST. REPORTED THAT SHE WAS CONCERNED THAT THERE WAS DECREASING HEART FUNCTION OR NEW DAMAGE. SERGEY REPORTED THAT HIS BREATHING WAS IMPROVED. OUR VISIT ENDED WHEN HE LEFT FOR IMAGING.
[2024-03-14] MEDS ORDERED: Azithromycin 500 MG in NS 250 ML IV SCH (18:00)
[2024-03-14] MEDS ORDERED: CefTRIAXone Sodium 1,000 MG in NS 100 ML IV SCH (18:00)
--- NOTE | 2024-03-14 19:35 | NUR ---
ASSUMED CARE OF PATIENT AT 1900. REPORT RECEIVED FROM MÓNICA Rivas RN. PT RESTING IN BED, TALKING ABOUT HIS PROCEDURE TOMORROW MORNING. NO ACUTE NEEDS IDENTIFIED AT THIS TIME. HEPARIN INFUSING AT 18 U/KG/HR. SEE SHIFT ASSESSMENT FOR FULL DETAILS.
[2024-03-14] MEDS ORDERED: Lactobacil 2-S.Thermo-Bifido 1 1 Cap PO SCH (21:00)
[2024-03-14] MEDS ORDERED: Insulin Glargine-Yfgn 100 Unit/mL 3 ML SYR SC SCH (21:00)
[2024-03-15] VITALS (53 sets, daily range): BP systolic 77–152; BP diastolic 56–119
[2024-03-15 03:54] LABS: Hemoglobin 10.8 g/dL (13.5-17.5); Mean Corpuscular HGB 30.3 pg (26.0-34.0); Mean Corpuscular HGB Conc 32.7 g/dL (31.5-36.5); Mean Corpuscular Volume 93 fL (80-100); Mean Platelet Volume 12.4 fL (9.1-12.4); Platelet Count 224 K/mm3 (150-400); RDW Coefficient Variation 13.4 % (11.7-14.2); RDW Standard Deviation 45.3 fL (35.1-46.3); Red Blood Cell Count 3.56 M/mm3 (4.30-5.90); White Blood Cell Count 15.74 K/mm3 (4.00-11.30)
[2024-03-15 04:10] LABS: Bun/Creatinine Ratio 27.6 (12.0-20.0); Calcium, Blood 8.7 mg/dL (8.5-10.1); Creatinine, Blood 2.14 mg/dL (0.60-1.20)
[2024-03-15 04:29] LABS: BAND PERCENT MAN 3 % (0-8); BASOPHILS PERCENT MAN 0 % (0-2); EOSINOPHILS PERCENT MAN 0 % (0-6); LYMPHOCYTES ABSOLUTE MAN 1.25 K/mm3 (0.84-5.20); LYMPHOCYTES PERCENT MAN 8 % (21-46); MONOCYTES ABSOLUTE MAN 1.57 K/mm3 (0.16-1.47); MONOCYTES PERCENT MAN 10 % (4-13); SEG NEUTROPHILS PERCENT MAN 79 % (41-73); TOTAL CELLS COUNTED 100
[2024-03-15] MEDS ORDERED: Dose Adjust by Pharmacy XX STA ×3 (04:42→18:01)
--- NOTE | 2024-03-15 06:37 | NUR ---
SHIFT SUMMARY PT REMAINED A&O X4 T/O ENTIRETY OF SHIFT. ABLE TO FOLLOW COMMANDS, MAKE PURPOSEFUL MOVEMENTS, AND MAKE NEEDS KNOWN. AFEBRILE AND DENIES PAIN. CARDIAC MONITORING IN PLACE - SINUS RHYTHM WITH HR IN 80'S-90'S, SBP 90'S-120'S. DENIED CP. REPORTED SOB THAT WAS RELIEVED FOLLOWING BREATHING TX AND CPAP PLACEMENT BY RT. CPAP SETTINGS 18/12 WITH 8LPM O2 BLEED IN. HAS BEEN NPO SINCE MIDNIGHT IN PREPARATION FOR STRESS TEST TODAY. NO BM THIS SHIFT. DENIES NAUSEA. MINOR IN PLACE DRAINING CLEAR YELLOW URINE TO GRAVITY. PIV TO JOSEPH INFUSING HEPARIN AT 19U/KG/HR. PG TO LEEANNE DRAWS AND FLUSHES WELL. WILL CONTINUE TO MONITOR AND REPORT TO ONCOMING RN.
[2024-03-15] MEDS ORDERED: Furosemide 10 MG/ML 4ML Vial IV SCH (09:00)
[2024-03-15] MEDS ORDERED: Albumin (Human) 25gm/100ml 100 ML IV SCH (09:00)
--- NOTE | 2024-03-15 09:46 | NUR ---
Spiritual Care Visit. Pt./Staff request Pt. is sitting up and welcomes my visit. Pt. was inquiring about who had seen him this AM, nurse Asa clarified that it was one of our leaders doing leaders rounds. Pt had food brought to room, and needed to eat. Pt. welcomed this outpatient case manager to return later in the AM.
--- NOTE | 2024-03-15 10:55 | NUR ---
DECOMPENSATION DURING NUC MED PT TAKEN TO NUC MED FOR FINAL PART OF STRESS TEST ON 6L 02 NC. PT DESATURATED TO 80% AND BECAME EXTREMELY ANXIOUS. PT DIAPHORETIC AND ASHEN BUITRAGO/DUSKY IN FACE/HANDS. PT PLACED ON 15L NONREBREATHER AND IMMEDIATELY TAKEN BACK TO ICU ROOM. PT PLACED ON CPAP WITH 12L BLEED IN. DR VALENTIN AND DR GLASS NOTIFIED OF PT CONDITION AND INCOMPLETE STRESS TEST. ORDERS RECIEVED FOR ABG. WILL CONTINUE TO MONITOR.
[2024-03-15 11:14] LABS: PCO2 Arterial 38.6 mmHg (35-45); PO2 Arterial 90.1 mmHg (80-100); pH Blood Arterial 7.36 (7.35-7.45)
[2024-03-15] MEDS ORDERED: LORazepam 2 MG/ML 1ML Injection IV PRN (11:25)
--- NOTE | 2024-03-15 17:52 | NUR ---
SHIFT SUMMARY PT HAS REMAINED ALERT AND ORIENTED WHEN AWAKE WITH PERIODS OF FORGETFULNESS. PT WITH CONTINUED SOB AND DESATURATION EVENTS THROUGHOUT THE AFTERNOON REQUIRING BIPAP. PT ALTERNATING BETWEEN 6L O2 NC AND BIPAP 18/12, WITH 8L 02 BLEED IN. PT WITHOUT FURTHER EPISODES OF DIAPHORESIS OR CYANOSIS THIS AFTERNOON. PT HAS COMPLAINED OF NAUSEA AND HEADACHE. PT MED PER EMAR. PT HAS DENIED CHEST PAIN. DR VALENTIN BY TO SEE PT THIS AFTERNOON. PLANS FOR PT TO GO TO [facility] TOMORROW AM FOR ANGIO. HEPARIN INFUSING AT 19 UNITS/KG/HR. MINOR REMAINS IN PLACE WITH CLEAR YELLOW URINE OUTPUT NOTED. PT ABLE TO HELP SHIFT SELF IN BED, BUT IS WEAK. PT REMAINS IN AFIB THIS SHIFT, RATE 100-120'S. PT REMAINS HYPOTENSIVE MOST OF THIS SHIFT. PT SPOUSE AT BEDSIDE THROUGHOUT THE AFTERNOON. WILL CONTINUE TO MONITOR AND REPORT OFF TO ONCOMING RN.
--- NOTE | 2024-03-15 17:55 | NUR ---
Met with pt this morning. She is trying to do advance directives and contact his family to let them know his condition. We had a caring discussion about his condition and needs. We reviewed code staus and pronosis. Got her copies of a will and pos and advance directive. She is terying to complet tmen and get notary. She thinks he ould not want life support but needs to speak with family. Getly advised her may need to make a sudden decision. Will continue to support her stress and transition to acceptance. Gently started hospice conversation. Pt kps score 30 to 20 percent.
[2024-03-15] MEDS ORDERED: Losartan Potassium 50 MG Tab PO SCH (18:00)
--- NOTE | 2024-03-15 19:46 | NUR ---
ASSUMED CARE ASSUMED CARE AT 1900. PT A/O X 4. DROWSY BUT FOLLOWING DIRECTIONS. C/O "UPSET STOMACH". ADB DISTENDED AND FIRM. UNKNOWN LAST BM, PT DECLINED MIRALAX. PT ALSO STATED "THEY DON'T NEED IT TONIGHT" WHEN ASKING ABOUT EYE DROPS AND NASAL SPRAY. ABLE TO BE OFF BIPAP APPROX 10 MINS BEFORE C/O SOB AND SPO2 88%. COARSE T/O. RT SWITCHED FROM 8L-6L O2 BLEED IN TO BIPAP. SPO2 GREATER THEN 90%. AFIB RATE 90-100'S. OTHER VSS. MINOR PATENT AND DRAINING TO GRAVITY. CALL LIGHT IN REACH.
[2024-03-16] VITALS (73 sets, daily range): BP systolic 75–146; BP diastolic 32–108
[2024-03-16] MEDS ORDERED: Dose Adjust by Pharmacy XX STA (00:26)
[2024-03-16] MEDS ORDERED: Losartan Potassium 25 MG Tab PO SCH (00:40)
[2024-03-16] MEDS ORDERED: Melatonin 5 MG Tablet PO ONE (01:45)
--- NOTE | 2024-03-16 02:23 | NUR ---
CALL TO HOSP PT C/O 03/30 CHEST PAIN. STATES ITS ACHY. EKG DONE AND PT STATES IT HURTS "A LITTLE" AFTER. PT ASKING FOR ANOTHER DOSE OF MELATONIN HE "TAKES TWO PILLS" AT HOME. HOSP NOTIFIED OF BOTH AND ORDER RECEIVED FOR MELATONIN. WHEN ADMINISTERED PT DENIED CHEST PAIN.
[2024-03-16 03:39] LABS: BASOPHILS ABSOLUTE AUTO 0.07 K/mm3 (0.00-0.23); BASOPHILS PERCENT AUTO 0 % (0-2); EOSINOPHILS ABSOLUTE AUTO 0.04 K/mm3 (0.00-0.68); EOSINOPHILS PERCENT AUTO 0 % (0-6); Hemoglobin 9.9 g/dL (13.5-17.5); IMMATURE GRAN ABSOLUTE AUTO 0.08 K/mm3 (0.00-0.10); IMMATURE GRAN PERCENT AUTO 0 % (0-1); LYMPHOCYTES ABSOLUTE AUTO 1.27 K/mm3 (0.84-5.20); LYMPHOCYTES PERCENT AUTO 7 % (21-46); MONOCYTES ABSOLUTE AUTO 1.19 K/mm3 (0.16-1.47); MONOCYTES PERCENT AUTO 6 % (4-13); Mean Corpuscular HGB 29.8 pg (26.0-34.0); Mean Corpuscular HGB Conc 31.9 g/dL (31.5-36.5); Mean Corpuscular Volume 93 fL (80-100); Mean Platelet Volume 12.4 fL (9.1-12.4); NEUTROPHILS ABSOLUTE AUTO 15.98 K/mm3 (1.96-9.15); NEUTROPHILS PERCENT AUTO 86 % (41-73); Platelet Count 241 K/mm3 (150-400); RDW Coefficient Variation 13.7 % (11.7-14.2); RDW Standard Deviation 46.1 fL (35.1-46.3); Red Blood Cell Count 3.32 M/mm3 (4.30-5.90); White Blood Cell Count 18.63 K/mm3 (4.00-11.30)
[2024-03-16 04:12] LABS: Bun/Creatinine Ratio 29.7 (12.0-20.0); Calcium, Blood 8.6 mg/dL (8.5-10.1); Creatinine, Blood 2.09 mg/dL (0.60-1.20); Magnesium, Blood 2.5 mg/dL (1.6-2.4); Potassium, Blood 4.2 mmol/L (3.5-5.5)
--- NOTE | 2024-03-16 06:39 | NUR ---
SHIFT SUMMARY SEE PREVIOUS NOTES. PT A/O X 4 BUT FORGETFUL AND CONFUSED AT TIMES. ANXIOUS WITH MOVEMENT. UNABLE TO TAKE BREAKS LONGER THEN 5 MINS FROM BIPAP WITH 9L BLEED IN. 13L NC FOR SHORT BREAKS TO TAKE PILLS. C/O STOMACH ACHE T/O NIGHT. MEDICATED PER EMAR WITH GOOD RESULTS. VSS. MINOR PATENT AND DRAINING TO GRAVITY.
[2024-03-16] MEDS ORDERED: NS 1,000 ML IV ONE ×2 (07:10→07:30)
[2024-03-16] MEDS ORDERED: NS 250 ML IV ONE (07:10)
[2024-03-16] MEDS ORDERED: Heparin Sodium 1000 Units/ML 10ML MDV ONE ×2 (07:10→07:33)
[2024-03-16] MEDS ORDERED: NiCARdipine HCL 1,000 MCG/5 ML SYR ONE (07:11)
[2024-03-16] MEDS ORDERED: Nitroglycerin 2 MG/20 ML BTL ONE (07:11)
[2024-03-16] MEDS ORDERED: FentaNYL Citrate 50 MCG/ML 2 ML Injection ONE (07:30)
--- NOTE | 2024-03-16 07:55 | NUR ---
[place] of Care: Care assumed at 0700hr. Patient on M-series BiPAP at shift change. Woke shortly after shift changed and asked to remove BiPAP mask. RT Taylor placed patient on 10L NC. Patient did not appear to have respiratory distress, but SpO2 quickly decreased to 80-85%. petroleum refinery laborer staff arrived at that time. This RN expressed concern for patient's ability to lay flat on laboratory worker table. Patient then placed back on BiPAP mask and layed flat in bed to assess his ability to tolerate. SpO2 maintained at 93-95%, no s/s of dyspnea, patient states breathing feels wnl while on mask. RT Taylor agreed that patient safe to transport to laboratory worker. Patient then transferred to laboratory worker with RT and x3 laboratory worker RN's. Patient alert, oriented x4. Denies pain discomfort except for palpation of ABD. Bowel tones hypoactive and ABD slightly distended. Will discuss findings with Dr. Butcher this morning. Stuart cath patent and intact.
[2024-03-16] MEDS ORDERED: Aspirin 325 MG Tab ONE (08:28)
[2024-03-16] MEDS ORDERED: Clopidogrel Bisulfate 300 MG Cap ONE (08:28)
[2024-03-16] MEDS ORDERED: Phenylephrine HCl 100 MCG/ML-NS 10MLSYR (1MG/10ML) ONE (08:38)
[2024-03-16] MEDS ORDERED: Atropine Sulfate 0.1 MG/ML 10ML SYR ONE (08:38)
[2024-03-16] MEDS ORDERED: NS 1,000 ML IV SCH (10:00)
[2024-03-16] MEDS ORDERED: Furosemide 40 MG Tab PO SCH (10:00)
--- NOTE | 2024-03-16 11:20 | NUR ---
Return from Lawn Mower Operator: Patient returned from orthodontic lab technician to ICU rm 5 at approx 1000hr. Patient lying flat in bed, on BiPAP mask. Alert and oriented x4, VSS, denies pain or discomfort. Arterial access sites to rt radial with TR band in place 8ml of air in band, also to rt groin with angio-seal in place. Both access sites without bleeding, no s/s of hematoma. Distal limb color and sensation wnl. Patient removed from BiPAP mask and placed on 10L/NC shortly after arrival to unit. Tolerated NC without difficulty for approx 30min, then request BiPAP mask for c/o feeling SOB. Family now at bedside. Patient appears calm and comfortable. Will continue to monitor.
[2024-03-16] MEDS ORDERED: Insulin Human Lispro 100 Units/ML 3ML Syringe SC SCH (11:30)
--- NOTE | 2024-03-16 14:57 | NUR ---
MET WITH PATIENT AND FAMILY. PROVIDER AND I DISCUSSED HIS HEART FUNCTION AND HIS INCREASED RESPRITORY NEEDS. WE DISCUSSED CODE STATUS AND OUTCOMES IF A CODE WERE TO BE PREFORMED. FAMILY AND PATIENT AGREED THAT THE RISKS WOULD OUTWEIGH THE BENIFITS. FAMILY DISCUSSED TAKING HIM HOME ON HOSPICE CARE. DISCUSSED THIS WITH CASE MANAGMENT AND PROVIDER. WE FILLED OUT A NEW POLST, THEY CHOSE DNR STATUS, AND LIMITED TREATMENT. PC WILL CONTINUE TO FOLLOW
--- NOTE | 2024-03-16 18:17 | NUR ---
Shift Summary: No significant changes throughout remainder of shift (see previous notes). Tolerating breaks from BiPAP with NC at 10L. Patient does not appear to be in distress nor decrease in SpO2 but request to go back on BiPAP mask for c/o SOB. Rt groin access site wnl, no s/s of bleeding or hematome. Rt radial acces site also wnl, no s/s of bleeding or hematoma. TR band now off rt radial site with clear occlusive dressing and armboard in place. Sat upright in bed for dinner, tolerated without difficulty. Visiting with multiple family members this afternoon/evening. PG and peripheral IV remain patent and intact. Stuart cath remains patent and intact, 650ml output. Will continue to monitor until report to NOC shift RN. After discussion with Dr. Butcher and PC, patient and family members made decision to change code to DNR and to go home on Hospice. Yohana from care management has set-up hospice discharge for Tuesday.
[2024-03-16] MEDS ORDERED: Carvedilol 25 MG Tab PO SCH (21:00)
--- NOTE | 2024-03-16 21:25 | NUR ---
ASSUMPTION OF CARE BEDSIDE SHIFT REPORT RECEIVED FROM DAYSHIFT RN. PT RESTING IN BED, SLEEPING BUT AROUSABLE. PT ORIENTED X 4, ANSWERS QUESTIONS APPROPRIATELY, FOLLOWS DIRECTION WHEN PROMPTED AND IS ABLE TO MAKE NEEDS KNOWN. PT MOVES EXTREMITIES EQUALLY BILATERALLY, PT HAS BILATERAL BKA. HR 80-90'S BBB, PT DENIES CP OR PRESSURE, MAP >65. PUNCTURE SITE TO R RADIAL WITH CLEAR DRESSING AND ARM BOARD IN PLACE, NO SIGNS OF BLEEDING OR HEMATOMA FORAMATION PRESENT. PUNCTURE SITE TO RIGHT GROIN WITH CLEAR DRESSING IN [place], NO SIGNS OF HEMATOMA OR BLEEDING NOTED. PT ON BIPAP WITH 10L BLEED IN, OXYGEN SATURATION >92%. ABDOMEN ROUND AND FIRM, BOWEL TONES HYPOACTIVE. FOELY IN PLACE PATENT DRAINING TO GRAVITY. PIV IN PLACE TO RAC, POWERGLIDE IN PLACE TO LEEANNE, NS INFUSING AT 150MLS/HR. BED IN LOWEST POSITION, FAMILY AT THE BEDSIDE. CARE CONTINUES.
[2024-03-17] VITALS (37 sets, daily range): BP systolic 67–139; BP diastolic 44–100
[2024-03-17 04:05] LABS: BASOPHILS ABSOLUTE AUTO 0.03 K/mm3 (0.00-0.23); BASOPHILS PERCENT AUTO 0 % (0-2); EOSINOPHILS ABSOLUTE AUTO 0.02 K/mm3 (0.00-0.68); EOSINOPHILS PERCENT AUTO 0 % (0-6); Hematocrit 25.8 % (37.0-53.0); Hemoglobin 8.3 g/dL (13.5-17.5); IMMATURE GRAN ABSOLUTE AUTO 0.06 K/mm3 (0.00-0.10); IMMATURE GRAN PERCENT AUTO 1 % (0-1); LYMPHOCYTES ABSOLUTE AUTO 0.93 K/mm3 (0.84-5.20); LYMPHOCYTES PERCENT AUTO 9 % (21-46); MONOCYTES ABSOLUTE AUTO 0.77 K/mm3 (0.16-1.47); MONOCYTES PERCENT AUTO 7 % (4-13); Mean Corpuscular HGB 30.4 pg (26.0-34.0); Mean Corpuscular HGB Conc 32.2 g/dL (31.5-36.5); Mean Corpuscular Volume 95 fL (80-100); Mean Platelet Volume 12.6 fL (9.1-12.4); NEUTROPHILS ABSOLUTE AUTO 8.68 K/mm3 (1.96-9.15); NEUTROPHILS PERCENT AUTO 83 % (41-73); Platelet Count 199 K/mm3 (150-400); RDW Coefficient Variation 14.1 % (11.7-14.2); RDW Standard Deviation 47.9 fL (35.1-46.3); Red Blood Cell Count 2.73 M/mm3 (4.30-5.90); White Blood Cell Count 10.49 K/mm3 (4.00-11.30)
[2024-03-17 04:29] LABS: Bun/Creatinine Ratio 29.3 (12.0-20.0); Creatinine, Blood 2.59 mg/dL (0.60-1.20); Potassium, Blood 4.3 mmol/L (3.5-5.5)
--- NOTE | 2024-03-17 05:58 | NUR ---
SHIFT SUMMARY NO ACUTE CHANGES THIS SHIFT. PT CONTINUES TO REST IN BED, SLEEPING BUT AROUSABLE. PT ORIENTED X4, ANSWERS QUESTIONS APPROPRIATELY, FOLLOWS DIRECTION WHEN PROMPTED AND IS ABLE TO MAKE NEEDS KNOWN. PT MOVES ALL EXTREMITIES EQUALLY BILATERALLY. HR 70-100'S SINUS, CURRENTLY IN AFIB WITH BBB. SBP 80-120'S, MAP >65. PT DENIES CP OR PRESSURE. BLOOD PRESSURES ARE DIFFERENT WHEN TAKEN FROM THE LEFT ARM VS. THE RIGHT ARM, BLOOD PRESSURE TAKEN FROM THE RIGHT ARM IS MORE ACCURATE THAN THE LEFT. PT ON BIPAP WITH AN 11L BLEED IN, OXYGEN SATURATION >90%. PT HAS TOLERATED VERY SHORT BREAKS FROM THE BIPAP TO NC AT 10L THIS EVENING, PT BECOMES ANXIOUS WHILE ON NC AND ASKS TO HAVE THE MASK PUT BACK ON. ABDOMEN ROUND AND FIRM, PT DENIES N/V, BOWEL TONES HYPOACTIVE. MINOR IN PLACE PATENT DRAINING TO GRAVITY. PIV IN PLACE TO RAC SL. POWERGLIDE IN PLACE TO LEEANNE INFUSING NS @ 50MLS/HR. BED IN LOWEST POSITION, AT THE BEDSIDE. CARE CONTINUES.
[2024-03-17] MEDS ORDERED: Insulin Glargine-Yfgn 100 Unit/mL 3 ML SYR SC SCH (09:00)
[2024-03-17] MEDS ORDERED: Apixaban 5 MG Tab PO SCH (09:00)
--- NOTE | 2024-03-17 11:36 | NUR ---
SHIFT ASSESSMENT ASSUMED CARE OF PT @ 0700, BEDSIDE REPORT RECEIVED FROM EDVIN KAUR. PT A&OX4, CALM AND COOPERATIVE WITH CARE, ANNA, ASSISTS WITH TURNS. ON BIPAP c SATS >95%, TOLERATES WELL. GIVING BREAKS FROM BIPAP c 10LPM O2 VIA NC. PT TOLERATES NC FOR SHORT PERIODS BUT SEEMS TO BECOME ANXIOUS AND REQUESTS BIPAP. PT DENIES CP. R RADIAL AND FEMORAL ACCESS SITES WITH NO HEMATOMA, CLEAR DRESSING INTACT. ARM BOARD REMOVED FROM R WRIST PER MILK PROCESSING WORKER. MINOR CATH PATENT, DRAINING YELLOW URINE. PT NOW PCU STATUS.
--- NOTE | 2024-03-17 18:28 | NUR ---
Transfer Summary Recieved report from RN at 1430 Assumed care of patient at 1440. Patient alert and orieted to person, place, date, situation. On tele BBB in the 's. Denies any chest pain/pressure, dizziness, headache. He reports some upset stomach medicated per EMAR. Abdomen distended and firm, hypoactive bowel sounds, reporting last bowel movement a few days ago. On BIPAP, 11 bleed in. Trialed 10 via NC for a few minutes to give medications, placed back on BIPAP. VSS. Right radial sight with no bruising, bleeding, or edema. R femoral with some bleeding which is unchanged from report. No acute changes during shift. Will continue to monitor.
--- NOTE | 2024-03-17 18:49 | NUR ---
THIS RN REVIEWED STUDENT RN NOT AND AGREES WITH STUDENT.
--- NOTE | 2024-03-17 19:46 | NUR ---
ASSUMPTION OF CARE: THIS RN ASSUMED CARE OF PT AT APPROX 1900. ON INITIAL ASSESSMENT, PT'S SBP 60-70'S, MAP <65. BIPAP DEPENDENT W/ AGONAL BREATHING NOTED. MOTTELING FROM BLE TO NECK. PT COLD TO TOUCH. MINIMALLY RESPONSIVE AT START OF SHIFT, UNRESPONSIVE TO VERBAL STIMULI AT THIS TIME. CALL TO PT'S SPOUSE. PT'S SPOUSE REQUESTS CALL BE PLACED TO DAUGHTER TO DETERMINE COMFORT CARE VERSUS AGGRESSIVE MANAGEMENT. CALL PLACED TO DAUGHTER. DAUGHTER REQUESTS PT BE PLACED ON COMFORT MEASURES ONLY. FAMILY TO COME TO BEDSIDE. CALL TO [facility] [employer] FOR UPDATE. PER PHYSICIAN, DO NOT ADMINISTER ANY MEDICATIONS AT THIS TIME & LEAVE BIPAP IN PLACE. PHYSICIAN STATES HE WILL COME TO BEDSIDE WHEN FAMILY IS HERE TO FURTHER DISCUSS COMFORT INTERVENTIONS. BELL CLEANER UPDATED.
--- NOTE | 2024-03-17 20:56 | NUR ---
UPDATE: [facility] [employer] AT BEDSIDE. APPROX 15 FAMILY MEMBERS AT BEDSIDE, VERY TEARFUL AT THIS TIME. PROVIDER SPOKE WITH FAMILY ABOUT CURRENT CONDITION & PROGNOSIS, WELL OPTION FOR COMFORT CARE. FAMILY MEMBERS REQUEST PT BE PLACED ON COMFORT CARE AT THIS TIME. PROVIDER TO PLACE ORDERS. PER PROVIDER, MEDICATE PT FOR PAIN & AIR HUNGER AND WAIT TO REMOVE BIPAP UNTIL APPROX 1HR POST MEDS TO ENSURE PT COMFORT. AWAITING ORDERS, FAMILY REMAINS AT BEDSIDE.
[2024-03-17] MEDS ORDERED: Morphine Sulfate 20 MG/1ML 1 ML Oral Syringe SL PRN (21:05)
[2024-03-17] MEDS ORDERED: HYDROmorphone HCl/Pf 1MG SYR IV PRN (21:05)
[2024-03-17] MEDS ORDERED: LORazepam 2 MG/ML 1ML Injection IV PRN (21:05)
[2024-03-17] MEDS ORDERED: Morphine Sulfate 10 MG/ML 1MLSYR IV PRN (21:05)
[2024-03-17] MEDS ORDERED: Haloperidol Lactate Inj. 5 MG/ML Injection IV PRN (21:05)
--- NOTE | 2024-03-17 21:56 | NUR ---
Pastoral care visitation conducted. Numerous family filled the room at the decedent's bedside. Family requested a group prayer which was facilitated and administered accordingly. Family were tearful and consoling one another appearing to be grieving appropriately. Condolences and pastoral presence extended for a time. I quietly excused myself as family remained present.
[2024-03-17] MEDS ORDERED: Morphine Sulfate 10 MG/ML 1MLSYR IV ONE (22:00)
[2024-03-17] MEDS ORDERED: LORazepam 2 MG/ML 1ML Injection IV ONE (22:00)
[2024-03-17] MEDS ORDERED: DiphenhydrAMINE HCl 50 MG/ML 1ML Vial IV ONE (22:00)
[2024-03-17] MEDS ORDERED: Ondansetron HCl 2 MG / ML 2ML Vial IV ONE (22:00)
--- NOTE | 2024-03-18 00:11 | NUR ---
FINAL DISCHARGE: UPON INITIAL ASSESSMENT, PT ANXIOUS & TACHYPNEIC. BIPAP IN PLACE. PT MEDICATED PER EMAR FOR ANXIETY. PT NOTED TO HAVE CHANGES IN TELEMETRY, SINUS-SINUS TAMEKA. PT HYPOTENSIVE W/ MAP <65. PT PALE, COOL, DIAPHORETIC. MOTTLED APPEARANCE. SPOKE W/ BIGHT MAKER REGARDING PT CONDITION, BIGHT MAKER TO BEDSIDE. SPOKE WITH FAMILY REGARDING WISHES FOR LIFE SUSTAINING TREATMENT. WAS UNABLE TO MAKE DECISION & REQUESTED THIS RN TO SPEAK W/ DAUGHTERSTARR. DAUGHTER MADE DECISION TO PURSUE COMFORT CARE DUE TO PT POTENTIALLY DISCHARGING HOME ON HOSPICE. FAMILY TO ARRIVE AT BEDSIDE. CALL PLACED TO HOSPITALIST MÓNICA W/ UPDATE. HOSPITALIST TO BEDSIDE WHEN FAMILY ARRIVED. HOSPITALIST EXPLAINED OPTIONS REGARDING QUALITY OF LIFE. DECISION MADE BY FAMILY TO PLACE PT ON COMFORT CARE. HOSPITALIST TO PLACE ORDERS. MULTIPLE FAMILY MEMBERS AT BEDSIDE, REQUESTED PASTORAL SERVICES. FAMILY PROVIDED W/ WATER AND TISSUES. FAMILY EDUCATED ON NEXT STEPS DURING END OF LIFE. PT MEDICATED PER EMAR W/ FAMILY AT BEDSIDE. BIPAP REMAINS IN PLACE DURING PT'S PASSING. TIME OF 2129. VERIFIED W/ BIGHT MAKER. POST-MORTEM CARE PROVIDED, LINES AND TUBES REMOVED. [facility] PICKED PT UP AT 0010. NO BELONGINGS NOTED UPON PT LEAVING FACILITY.
[2024-03-18] MEDS ORDERED: Apixaban 5 MG Tab PO SCH (09:00)
== END 2024-03-18 00:21 | DRG 853 ==
LOC: ER 13:22 → ICUE 15:47 → PCU 15:47 → ICUE 20:45 → PCU 03-17 14:35
PROVIDERS: Emergency Medicine; Internal Medicine; Internal Medicine Cardiovascular Disease; Nurse Practitioner Acute Care; ADMIT Internal Medicine
PROC: 3E03329 Introduction of Other Anti-infective into Peripheral Vein, Percutaneous Approach (ICD-10-PCS; 2024-03-13)
PROC: 5A09357 Assistance with Respiratory Ventilation, Less than 24 Consecutive Hours, Continuous Positive Airway Pressure (ICD-10-PCS; 2024-03-13)
PROC: 5A09457 Assistance with Respiratory Ventilation, 24-96 Consecutive Hours, Continuous Positive Airway Pressure (ICD-10-PCS; 2024-03-15)
PROC: 4A033R1 Measurement of Arterial Saturation, Peripheral, Percutaneous Approach (ICD-10-PCS; 2024-03-15)
PROC: 027035Z Dilation of Coronary Artery, One Artery with Two Drug-eluting Intraluminal Devices, Percutaneous Approach (ICD-10-PCS; principal; 2024-03-16)
PROC: B2111ZZ Fluoroscopy of Multiple Coronary Arteries using Low Osmolar Contrast (ICD-10-PCS; 2024-03-16)
DX: A41.9 Sepsis, unspecified organism (principal); I21.A1 Myocardial infarction type 2; J96.21 Acute and chronic respiratory failure with hypoxia; I50.23 Acute on chronic systolic (congestive) heart failure; I13.0 Hypertensive heart and chronic kidney disease with heart failure and stage 1 through stage 4 chronic kidney disease, or unspecified chronic kidney disease; N17.9 Acute kidney failure, unspecified; J44.0 Chronic obstructive pulmonary disease with (acute) lower respiratory infection; E87.1 Hypo-osmolality and hyponatremia; I48.4 Atypical atrial flutter; I51.81 Takotsubo syndrome; T82.855A Stenosis of coronary artery stent, initial encounter; I48.20 Chronic atrial fibrillation, unspecified; Z51.5 Encounter for palliative care; Z66 Do not resuscitate; E11.22 Type 2 diabetes mellitus with diabetic chronic kidney disease; N18.30 Chronic kidney disease, stage 3 unspecified; E11.51 Type 2 diabetes mellitus with diabetic peripheral angiopathy without gangrene; K21.9 Gastro-esophageal reflux disease without esophagitis; E11.65 Type 2 diabetes mellitus with hyperglycemia; E87.5 Hyperkalemia; I25.10 Atherosclerotic heart disease of native coronary artery without angina pectoris; E11.42 Type 2 diabetes mellitus with diabetic polyneuropathy; F32.A Depression, unspecified; H40.9 Unspecified glaucoma; G47.33 Obstructive sleep apnea (adult) (pediatric); I27.20 Pulmonary hypertension, unspecified; F41.9 Anxiety disorder, unspecified; Z88.1 Allergy status to other antibiotic agents; Z88.5 Allergy status to narcotic agent; Z79.82 Long term (current) use of aspirin; Z79.4 Long term (current) use of insulin; Z79.899 Other long term (current) drug therapy; Z79.51 Long term (current) use of inhaled steroids; Z89.511 Acquired absence of right leg below knee; Z90.49 Acquired absence of other specified parts of digestive tract; Z89.512 Acquired absence of left leg below knee; Z95.5 Presence of coronary angioplasty implant and graft; Z99.81 Dependence on supplemental oxygen; Z79.01 Long term (current) use of anticoagulants; Z79.02 Long term (current) use of antithrombotics/antiplatelets; I25.2 Old myocardial infarction; Z86.14 Personal history of Methicillin resistant Staphylococcus aureus infection; Z87.891 Personal history of nicotine dependence
CPT/HCPCS: 0241U; 36415; 36600; 51702; 71045; 71046; 76937; 78452; 80048; 80053; 80061; 81003; 82010; 82803; 82947; 83036; 83605; 83735; 83880; 84100; 84145; 84484; 85007; 85025; 85027; 85347; 85520; 85610; 85730; 87070; 87205; 93005; 93010; 93017; 93454; 94640; 94660; 94664; 94762; 96365; 96375; 99152; 99153; 99285-25; A9270; A9500; C1725; C1760; C1769; C1874; C1887; C1894; C8929; C9113; C9600; J0280; J0456; J0461; J0612; J0696; J1644; J1815; J1940; J2060; J2371; J2405; J2785; J3010; J7030; J7050; P9047; Q9957; Q9967